=== PATIENT | male | born 1950 | race Caucasian/White ===

== ENCOUNTER 2020-08-22 08:42 | Inpatient (IN) | payer MEDICARE, BC ==
[2020-08-22 09:15] LABS: #Lymphocytes 0.5 thou/uL (1.20-3.40); #Monocytes 0.4 thou/uL (0.11-0.59); #Neutrophils 6.6 thou/uL (1.40-6.50); %Basophils 0.3 % (0.0-1.0); %Eosinophils 0.1 % (0.0-10.0); %Lymphocytes 6.8 % (21.0-51.0); %Monocytes 5.2 % (0.0-10.0); %Neutrophils 87.6 % (42.0-75.0); Hemoglobin 14.3 g/dL (14.0-18.0); Mean Corpuscular HGB CONC 32.6 g/dL (32.0-36.0); Mean Corpuscular Hemoglobin 30.8 pg (27.0-31.0); Mean Corpuscular Volume 94.4 fL (78.0-98.0); Mean Platelet Volume 8.1 fL (7.4-10.4); Platelet Count 188 thou/uL (130-400); RBC Distribution Width 11.8 % (11.5-14.5); Red Blood Cell (RBC) Count 4.63 mill/uL (4.70-6.10); White Blood Cell (WBC) Count 7.6 thou/uL (4.8-10.8)
[2020-08-22] MEDS ORDERED: Dexamethasone 10 MG/ML VIAL ONE (09:16)
--- NOTE | 2020-08-22 09:26 | RAD ---
EXAM: Portable chest PROVIDED CLINICAL HISTORY: Shortness of breath, Covid positive COMPARISON: None FINDINGS: Cardiac and mediastinal silhouette is within normal limits. No focal consolidation, pleural fluid or pneumothorax evident. IMPRESSION: No focal consolidation evident.
[2020-08-22 09:39] LABS: ALT (SGPT) 14 U/L (8-55); AST (SGOT) 39 U/L (5-34); Albumin 3.8 g/dL (3.4-4.8); Alkaline Phosphatase 57 U/L (40-110); Anion Gap 14 mmol/L (10-20); BUN (Urea Nitrogen) 22 mg/dL (8.4-25.7); Bilirubin, Total 0.6 mg/dL (0.2-1.2); Calc. Creatinine Clearance 0 mL/min (70-130); Calcium 8.2 mg/dL (7.8-10.44); Carbon Dioxide 27 mmol/L (23-31); Chloride 94 mmol/L (98-107); Globulin 2.8 g/dL (2.4-3.5); Glucose 155 mg/dL (80-115); Potassium 4.4 mmol/L (3.5-5.1); Protein, Total 6.6 g/dL (5.8-8.1); Sodium 131 mmol/L (136-145)
--- NOTE | 2020-08-22 11:23 | PDOC.HHP ---
Hospitalist HPI - History of Present Illness SOB History of Present Illness: Mr. Greenberg is a 69-year-old male with a past medical history of type 2 diabetes mellitus diet controlled, hypothyroidism, BPH who presents to the emergency room for shortness of breath. Patient reports that he tested positive for Covid 4 days ago and that his symptoms began 7 days ago with fever chills myalgias and a mild cough. Patient reports that over the past 2 days he has become increasingly short of breath now even at rest. He denies chest pain, palpitations. Denies abdominal pain nausea vomiting diarrhea. No history of respiratory problems. EMS reports that patient was in the low 80s on room air initially. Emergency room initial vital signs 107/83, 87, 25, 99.7, 98% on 2 L nasal cannula. EKG with normal sinus rhythm no ischemic changes. Initial troponin 0 0.010. Chest x-ray showed diffuse patchy infiltrates consistent with COVID-19 pneumonia. BUN/CR 22/1.03. Sodium 131, potassium 4.4, glucose 155. Lactic acid 1.1. Patient received Decadron in the emergency room. Hospitalist ROS - Review of Systems Constitutional: reports: fever, weakness, malaise. denies: chills, sweats Eyes: denies: pain, vision change, conjunctivae inflammation, eyelid inflammation, redness, other ENT: denies: ear pain, ear discharge, nose pain, nose discharge, nose congestion, mouth pain, mouth swelling, throat pain, throat swelling, other Respiratory: reports: cough, dry, shortness of breath, SOB with excertion. denies: hemoptysis, pleuritic pain, sputum, wheezing, other Cardiovascular: denies: chest pain, palpitations, orthopnea, paroxysmal noc. dyspnea, edema, light headedness, other Gastrointestinal: denies: nausea, vomiting, abdominal pain, diarrhea, constipation, melena, hematochezia, other Genitourinary: denies: dysuria, frequency, incontinence, hematuria, retention, other Skin: denies: rash, lesions, yojana, bruising, other Neurological: denies: weakness, numbness, incoordination, change in speech, confusion, seizures, other - Medication Medications: Patient takes no home medications Has allergy to sulfa drugs Hospitalist History - Past Medical History Other Medical History: Past medical history includes Type 2 diabetes mellitus diet controlled Hypothyroidismpatient reports he is on no medications however BPH - Past Surgical History Other Surgical History: No past surgical history - Family History Other Family History: No pertinent family history - Social History Smoking Status: Never smoker Alcohol: reports: None Drugs: reports: none Living Situation: With Family Activity level: independent ambulation - Exam General Appearance: NAD, awake alert Eye: PERRL, anicteric sclera ENT: normocephalic atraumatic, no oropharyngeal lesions, moist mucosa Neck: supple, symmetric, no JVD, no thyromegaly, no lymphadenopathy, no carotid bruit Heart: RRR, no murmur, no gallops, no rubs, normal peripheral pulses Respiratory - other findings: Rales throughout Gastrointestinal: soft, non-tender, non-distended, normal bowel sounds, no palpable masses, no hepatomegaly, no splenomegaly, no bruit Extremities: no cyanosis, no clubbing, no edema Skin: normal turgor, no lesions, no rashes Neurological: cranial nerve grossly intact, normal sensation to touch, no weakness, no focal deficits, no new deficit Musculoskeletal: normal tone, normal strength, no muscle wasting Psychiatric: normal affect, normal behavior, A&O x 3 Hospitalist Results - Labs Result Diagrams: 08/22/20 09:06 08/22/20 09:06 Lab results: WBC 7.6 thou/uL (4.8-10.8) 08/22/20 09:06 Hgb 14.3 g/dL (14.0-18.0) 08/22/20 09:06 Hct 43.8 % (42.0-52.0) 08/22/20 09:06 MCV 94.4 fL (78.0-98.0) 08/22/20 09:06 Plt Count 188 thou/uL (130-400) 08/22/20 09:06 Neutrophils % 87.6 % (42.0-75.0) H 08/22/20 09:06 Sodium 131 mmol/L (136-145) L 08/22/20 09:06 Potassium 4.4 mmol/L (3.5-5.1) 08/22/20 09:06 Chloride 94 mmol/L (98-107) L 08/22/20 09:06 Carbon Dioxide 27 mmol/L (23-31) 08/22/20 09:06 BUN 22 mg/dL (8.4-25.7) 08/22/20 09:06 Creatinine 1.03 mg/dL (0.7-1.3) 08/22/20 09:06 Glucose 155 mg/dL (80-115) H 08/22/20 09:06 Lactic Acid 1.1 mmol/L (0.5-2.2) 08/22/20 09:06 Calcium 8.2 mg/dL (7.8-10.44) 08/22/20 09:06 Total Bilirubin 0.6 mg/dL (0.2-1.2) 08/22/20 09:06 AST 39 U/L (5-34) H 08/22/20 09:06 ALT 14 U/L (8-55) 08/22/20 09:06 Alkaline Phosphatase 57 U/L (40-110) 08/22/20 09:06 Troponin I Less than 0.010 ng/mL (< 0.028) 08/22/20 09:06 Serum Total Protein 6.6 g/dL (5.8-8.1) 08/22/20 09:06 Albumin 3.8 g/dL (3.4-4.8) 08/22/20 09:06 Hospitalist H&P A/P - Plan Plan: COVID-19 pneumonia 69-year-old male with past medical history of type 2 diabetes mellitus, hypothyroidism, BPH presents Covid positive with worsening shortness of breath now requiring 2 L nasal cannula to maintain O2 saturation. Chest x-ray showed patchy bilateral infiltrates consistent with COVID-19 pneumonia. WBC 7.6. Troponin less than 0.010, EKG with no ischemic changes. Patient has no history of respiratory problems. Will obtain baseline inflammatory markers, continue Decadron and see if patient is candidate for remdesivir. Plan -Decadron, will see patient is candidate for remdesivir -Supplemental oxygen -Tylenol, Robitussin Albuterol MDI as needed -Vitamin C, D, zinc -We will obtain baseline inflammatory markers Acute hypoxic respiratory failure Patient with acute hypoxic respiratory failure secondary to moderate to severe COVID-19 pneumonia. Patient with new oxygen requirement now on 2 L of oxygen nasal cannula to maintain O2 sat. We will continue supplemental oxygen and closely monitor respiratory status. Treatment as above. Plan -Supplemental oxygen -Treatment as above -Closely monitor respiratory status Hyponatremia Mild hyponatremia with sodium level 131 on admission. Suspect mild component of SIADH versus hypovolemic hyponatremia secondary to decreased p.o. intake. Will obtain serum, urine osmolality and urine electrolytes. Plan Serum, urine osmolality Urine electrolytes Trend sodium level Type 2 diabetes mellitus History of type 2 diabetes which patient reports is diet controlled. Will place on ACHS glucose checks to monitor. Hypothyroidism History of hypothyroidism, however patient reports he is not on medication for this will check TSH level. DVT prophylaxisLovenox Full codeMDM is patient's Case discussed with attending physician, Dr. Byers
[2020-08-22] MEDS ORDERED: Acetaminophen 650 MG Suppository PR PRN (11:36)
[2020-08-22] MEDS ORDERED: Loperamide HCl 2 MG CAP PO PRN ×2 (11:36)
[2020-08-22] MEDS ORDERED: Dextrose 50% Abboject 50 ML SYRINGE SLOW IVP PRN (11:40)
[2020-08-22] MEDS ORDERED: Dextrose 5% in Water 1,000 ML IV PRN (11:40)
[2020-08-22 13:00] LABS: Ferritin 732.11 ng/mL (22-322); Thyroid Stimulating Hormone 1.4741 uIU/mL (0.35-4.94)
[2020-08-22] MEDS ORDERED: REMDESIVIR (EUA) 200 MG in Sodium Chloride 0.9% 250 ML 210 ML IV SCH (13:00)
[2020-08-22] MEDS: Albuterol 200 PUFF (6.7GM INHALER) INH SCH ×2 (17:42→20:19)
[2020-08-22 18:00] VITALS: BMI 25.8
[2020-08-22] MEDS: Guaifenesin DM 100-10/5 ML UDCUP PO PRN (18:52)
[2020-08-22 20:17] LABS: Potassium, Urine 33.9 mmol/L
[2020-08-23] MEDS: Albuterol 200 PUFF (6.7GM INHALER) INH SCH ×4 (05:35→18:16)
[2020-08-23] MEDS: Guaifenesin DM 100-10/5 ML UDCUP PO PRN (05:45)
[2020-08-23 06:27] LABS: #Lymphocytes 0.8 thou/uL (1.20-3.40); #Monocytes 0.4 thou/uL (0.11-0.59); #Neutrophils 10.2 thou/uL (1.40-6.50); %Basophils 0.1 % (0.0-1.0); %Lymphocytes 7.1 % (21.0-51.0); %Monocytes 3.6 % (0.0-10.0); %Neutrophils 89.1 % (42.0-75.0); Hemoglobin 14.1 g/dL (14.0-18.0); Mean Corpuscular HGB CONC 33.8 g/dL (32.0-36.0); Mean Corpuscular Hemoglobin 31.5 pg (27.0-31.0); Mean Corpuscular Volume 93.4 fL (78.0-98.0); Mean Platelet Volume 8.3 fL (7.4-10.4); Platelet Count 226 thou/uL (130-400); RBC Distribution Width 11.8 % (11.5-14.5); Red Blood Cell (RBC) Count 4.48 mill/uL (4.70-6.10); White Blood Cell (WBC) Count 11.5 thou/uL (4.8-10.8)
[2020-08-23 06:40] LABS: Anion Gap 14 mmol/L (10-20); BUN (Urea Nitrogen) 26 mg/dL (8.4-25.7); Calc. Creatinine Clearance 81 mL/min (70-130); Calcium 8.7 mg/dL (7.8-10.44); Carbon Dioxide 26 mmol/L (23-31); Chloride 97 mmol/L (98-107); Glucose 152 mg/dL (80-115); Potassium 4.3 mmol/L (3.5-5.1); Sodium 133 mmol/L (136-145)
[2020-08-23] MEDS: Dexamethasone 4 MG TAB PO SCH (08:00)
[2020-08-23] MEDS: Zinc Sulfate 220 MG CAP PO SCH (08:01)
[2020-08-23] MEDS: Cholecalciferol (Vitamin D3) 400 UNITS TAB PO SCH (08:01)
[2020-08-23] MEDS: Ascorbic Acid 500 mg Chewable Tablet PO SCH (08:01)
[2020-08-23] MEDS: Enoxaparin Sodium 40 MG/0.4 ML SYRINGE SC SCH (08:01)
--- NOTE | 2020-08-23 09:10 | RAD ---
Exam: Chest one view HISTORY:Shortness of breath Comparison: 08/22/2020 FINDINGS: Cardiac silhouette: Normal Aorta: Unremarkable Pulmonary vessels: Normal Costophrenic angles: Clear LUNGS: Interstitial opacities throughout the lung parenchyma, greatest in the lung bases. Pneumothorax: None Osseous abnormalities: None IMPRESSION: Scattered interstitial opacities, greatest in the lung bases. Correlate for edema versus infiltrate.
--- NOTE | 2020-08-23 10:06 | PDOC.HOSPP ---
- Subjective Encounter Date: 08/23/20 Encounter Time: 10:05 Subjective: Overnight, requiring increasing amount of O2. Now on 6L NC. In no apparent respiratory distress. Patient denies chest pain, N/V/D. Does report he feels a bit dehydrated and that he has not been drinking enough water. Chart and medications reviewed. - Objective Vital Signs & Weight: Vital Signs (12 hours) Temp Pulse Resp BP Pulse Ox 08/23/20 08:49 97.9 F 82 20 119/74 94 L 08/23/20 08:00 72 119/74 08/23/20 06:15 97.6 F 82 22 H 113/64 90 L 08/23/20 00:00 98.1 F 70 20 107/62 92 L Weight Weight 160 lb 3.2 oz Result Diagrams: 08/23/20 05:47 08/23/20 05:47 Additional Labs: Accuchecks 08/23/20 08/22/20 05:25 17:30 POC Glucose 156 H 235 H Hospitalist ROS - Review of Systems Constitutional: reports: fever, weakness Eyes: denies: pain, vision change, conjunctivae inflammation, eyelid inflammation, redness, other ENT: reports: throat pain. denies: ear pain, ear discharge, nose pain, nose discharge, nose congestion, mouth pain, mouth swelling, throat swelling, other Respiratory: reports: cough, shortness of breath, SOB with excertion. denies: dry, hemoptysis, pleuritic pain, sputum, wheezing, other Cardiovascular: denies: chest pain, palpitations, orthopnea, paroxysmal noc. dyspnea, edema, light headedness, other Gastrointestinal: denies: nausea, vomiting, abdominal pain, diarrhea, constipation, melena, hematochezia, other Genitourinary: denies: dysuria, frequency, incontinence, hematuria, retention, other Musculoskeletal: denies: neck pain, shoulder pain, arm pain, back pain, hand pain, leg pain, foot pain, other Skin: denies: rash, lesions, yojana, bruising, other Neurological: denies: weakness, numbness, incoordination, change in speech, confusion, seizures, other - Medication Medications: Active Medications Generic Name Dose Route Start Last Admin Trade Name Freq PRN Reason Stop Dose Admin Albuterol Sulfate 2 puff 08/22/20 15:00 08/23/20 05:35 Albuterol 200 Puff (6.7gm Inhaler) INH 2 puff [id number] SHREYAS Administration Ascorbic Acid 1,000 mg 08/23/20 09:00 08/23/20 08:01 Ascorbic Acid 500 Mg Chewable Tablet PO 1,000 mg DAILY SHREYAS Administration Cholecalciferol 400 units 08/23/20 09:00 08/23/20 08:01 Cholecalciferol (Vitamin D3) 400 Units Tab PO 400 units DAILY SHREYAS Administration Dexamethasone 6 mg 08/23/20 08:00 08/23/20 08:00 Dexamethasone 4 Mg Tab PO 6 mg QAM-WM SHREYAS Administration Enoxaparin Sodium 40 mg 08/23/20 09:00 08/23/20 08:01 Enoxaparin Sodium 40 Mg/0.4 Ml Syringe SC 40 mg 0900 SHREYAS Administration Guaifenesin/Dextromethorphan 15 ml 08/22/20 11:36 08/23/20 05:45 Guaifenesin Dm 100-10/5 Ml Udcup PO 15 ml Q4H PRN Administration Cough Zinc Sulfate 220 mg 08/23/20 09:00 08/23/20 08:01 Zinc Sulfate 220 Mg Cap PO 220 mg DAILY SHREYAS Administration - Exam General Appearance: NAD, awake alert General - other findings: Comfortable on 6L NC, no respiratory distress Eye: PERRL, anicteric sclera ENT: normocephalic atraumatic, no oropharyngeal lesions, dry oral mucosa Neck: supple, symmetric, no JVD, no thyromegaly, no lymphadenopathy, no carotid bruit Heart: RRR, no murmur, no gallops, no rubs, normal peripheral pulses Respiratory: no wheezes, normal chest expansion, no tachypnea, normal percussion Respiratory - other findings: Rales throughout Gastrointestinal: soft, non-tender, non-distended, normal bowel sounds, no palpable masses, no hepatomegaly, no splenomegaly, no bruit Extremities: no cyanosis, no clubbing, no edema Skin: normal turgor, no lesions, no rashes Neurological: cranial nerve grossly intact, normal sensation to touch, no weakness, no focal deficits, no new deficit Musculoskeletal: normal tone, normal strength, no muscle wasting Psychiatric: normal affect, normal behavior, A&O x 3 Hosp A/P - Plan COVID-19 pneumonia 69-year-old male with past medical history of type 2 diabetes mellitus, hypothyroidism, BPH presents Covid positive with worsening shortness of breath now requiring 2 L nasal cannula to maintain O2 saturation. Chest x-ray showed patchy bilateral infiltrates consistent with COVID-19 pneumonia. WBC 7.6. Troponin less than 0.010, EKG with no ischemic changes. Patient has no history of respiratory problems. Increasing O2 requirement on 08/23, on 6L NC. Repeat CXR shows interval worsening and question of faint LLL infiltrate. Will start on ceftriaxone and azithromycin for CAP coverage. Continue decadron, remdesivir. Plan -Decadron, remdesivir -Ceftriaxone, Azithromycin -Supplemental oxygen -Tylenol, Robitussin Albuterol MDI as needed -Vitamin C, D, zinc -Ferritin 732, CRP 13, D-Dimer 1.18 Acute hypoxic respiratory failure Patient with acute hypoxic respiratory failure secondary to moderate to severe COVID-19 pneumonia. Patient with new oxygen requirement initially on 2 L of oxygen nasal cannula to maintain O2 sat. Increased to 6L NC on 08/23. We will continue supplemental oxygen and closely monitor respiratory status. Treatment as above. Plan -Supplemental oxygen -Treatment as above -Closely monitor respiratory status Hyponatremia Mild hyponatremia with sodium level 131 on admission. Suspect mild component of SIADH versus hypovolemic hyponatremia secondary to decreased p.o. intake. Urine/serm osms show hypovolemic hyponatremia. Will start gentle IVF and continue to monitor. Plan Likely hypovolemic hyponatremia -Gentle IVF -Trend sodium Type 2 diabetes mellitus History of type 2 diabetes which patient reports is diet controlled. Glucose levels high 2/2 steroids. Will start on ISS for coverage and ACHS glucose checks. Carb consistent diet. Hypothyroidism History of hypothyroidism, however patient reports he is not on medication for this will check. TSH wnl. DVT prophylaxisLovenox Full codeMDM is patient's Case discussed with attending physician, Dr. Byers
[2020-08-23] MEDS: Sodium Chloride 0.9% 1,000 ML IV SCH (10:25)
[2020-08-23] MEDS: cefTRIAXone\\ROCEPHIN 1 GM in Sodium Chloride 0.9% 100 ML IVPB SCH (10:26)
[2020-08-23] MEDS: Azithromycin 500 MG in Sodium Chloride 0.9% 250 ML 250 ML IVPB SCH (10:50)
[2020-08-23 11:20] LABS: Sodium 131 mmol/L (136-145)
[2020-08-23] MEDS: Benzonatate 100 MG CAP PO PRN (12:15)
[2020-08-23] MEDS: HumaLOG 300 UNITS/3 ML VIAL SC PRN ×2 (12:16→16:39)
[2020-08-23] MEDS: REMDESIVIR (EUA) 100 MG in Sodium Chloride 0.9% 250 ML 230 ML IV SCH (14:42)
[2020-08-23 16:31] LABS: Sodium 134 mmol/L (136-145)
[2020-08-24 00:10] LABS: Sodium 135 mmol/L (136-145)
[2020-08-24] MEDS: Sodium Chloride 0.9% 1,000 ML IV SCH ×2 (00:38→11:37)
[2020-08-24] MEDS: Albuterol 200 PUFF (6.7GM INHALER) INH SCH ×4 (06:12→19:41)
[2020-08-24 06:41] LABS: #Lymphocytes 0.6 thou/uL (1.20-3.40); #Monocytes 0.5 thou/uL (0.11-0.59); #Neutrophils 10.1 thou/uL (1.40-6.50); %Lymphocytes 5.2 % (21.0-51.0); %Monocytes 4.1 % (0.0-10.0); %Neutrophils 90.6 % (42.0-75.0); Hemoglobin 14.1 g/dL (14.0-18.0); Mean Corpuscular HGB CONC 33.7 g/dL (32.0-36.0); Mean Corpuscular Volume 94.9 fL (78.0-98.0); Mean Platelet Volume 8.2 fL (7.4-10.4); Platelet Count 234 thou/uL (130-400); RBC Distribution Width 11.7 % (11.5-14.5); White Blood Cell (WBC) Count 11.2 thou/uL (4.8-10.8)
[2020-08-24 07:04] LABS: Anion Gap 12 mmol/L (10-20); BUN (Urea Nitrogen) 24 mg/dL (8.4-25.7); Calc. Creatinine Clearance 83 mL/min (70-130); Calcium 8.3 mg/dL (7.8-10.44); Carbon Dioxide 28 mmol/L (23-31); Chloride 100 mmol/L (98-107); Glucose 137 mg/dL (80-115); Potassium 4.2 mmol/L (3.5-5.1); Sodium 136 mmol/L (136-145)
[2020-08-24] MEDS: Enoxaparin Sodium 40 MG/0.4 ML SYRINGE SC SCH (08:06)
[2020-08-24] MEDS: Cholecalciferol (Vitamin D3) 400 UNITS TAB PO SCH (08:06)
[2020-08-24] MEDS: Ascorbic Acid 500 mg Chewable Tablet PO SCH (08:06)
[2020-08-24] MEDS: Zinc Sulfate 220 MG CAP PO SCH (08:06)
[2020-08-24] MEDS: Dexamethasone 4 MG TAB PO SCH (08:06)
[2020-08-24] MEDS: Azithromycin 500 MG in Sodium Chloride 0.9% 250 ML 250 ML IVPB SCH (10:18)
[2020-08-24] MEDS: cefTRIAXone\\ROCEPHIN 1 GM in Sodium Chloride 0.9% 100 ML IVPB SCH (10:19)
--- NOTE | 2020-08-24 10:28 | PDOC.HOSPP ---
- Subjective Encounter Date: 08/24/20 Encounter Time: 10:24 Subjective: No overnight events. Patient continues to be on 5L NC. In no apparent respiratory distress. Denies N/V/D. Denies chest pain. Chart and medications reviewed. - Objective Vital Signs & Weight: Vital Signs (12 hours) Temp Pulse Resp BP Pulse Ox 08/24/20 08:00 97.4 F L 80 22 H 132/78 93 L 08/24/20 03:52 97.7 F 67 20 125/64 92 L 08/24/20 01:33 97.4 F L 66 22 H 112/72 97 Weight Weight 160 lb 3.2 oz I&O: 08/23/20 08/24/20 08/25/20 06:59 06:59 06:59 Intake Total 240 Output Total 700 Balance -460 Result Diagrams: 08/24/20 06:03 08/24/20 10:08 Additional Labs: Accuchecks 08/24/20 08/23/20 08/23/20 04:40 20:31 16:38 POC Glucose 129 H 174 H 193 H 08/23/20 12:13 POC Glucose 156 H Hospitalist ROS - Review of Systems Constitutional: reports: fever, weakness, malaise Eyes: denies: pain, vision change, conjunctivae inflammation, eyelid inflammation, redness, other ENT: denies: ear pain, ear discharge, nose pain, nose discharge, nose [place] estion, mouth pain, mouth swelling, throat pain, throat swelling, other Respiratory: reports: cough, shortness of breath, SOB with excertion. denies: dry, hemoptysis, pleuritic pain, sputum, wheezing, other Cardiovascular: denies: chest pain, palpitations, orthopnea, paroxysmal noc. dyspnea, edema, light headedness, other Gastrointestinal: denies: nausea, vomiting, abdominal pain, diarrhea, constipation, melena, hematochezia, other Genitourinary: denies: dysuria, frequency, incontinence, hematuria, retention, other Musculoskeletal: denies: neck pain, shoulder pain, arm pain, back pain, hand pain, leg pain, foot pain, other Skin: denies: rash, lesions, yojana, bruising, other Neurological: denies: weakness, numbness, incoordination, change in speech, confusion, seizures, other - Medication Medications: Active Medications Generic Name Dose Route Start Last Admin Trade Name Freq PRN Reason Stop Dose Admin Albuterol Sulfate 2 puff 08/22/20 15:00 08/24/20 10:19 Albuterol 200 Puff (6.7gm Inhaler) INH 2 puff [id number] SHREYAS Administration Ascorbic Acid 1,000 mg 08/23/20 09:00 08/24/20 08:06 Ascorbic Acid 500 Mg Chewable Tablet PO 1,000 mg DAILY SHREYAS Administration Benzonatate 100 mg 08/22/20 11:42 08/23/20 12:15 Benzonatate 100 Mg Cap PO 100 mg TIDPRN PRN Administration Cough Cholecalciferol 400 units 08/23/20 09:00 08/24/20 08:06 Cholecalciferol (Vitamin D3) 400 Units Tab PO 400 units DAILY SHREYAS Administration Dexamethasone 6 mg 08/23/20 08:00 08/24/20 08:06 Dexamethasone 4 Mg Tab PO 6 mg QAM-WM SHREYAS Administration Enoxaparin Sodium 40 mg 08/23/20 09:00 08/24/20 08:06 Enoxaparin Sodium 40 Mg/0.4 Ml Syringe SC 40 mg 0900 SHREYAS Administration Guaifenesin/Dextromethorphan 15 ml 08/22/20 11:36 08/23/20 05:45 Guaifenesin Dm 100-10/5 Ml Udcup PO 15 ml Q4H PRN Administration Cough Remdesivir 100 mg/ Sodium 250 mls @ 250 mls/hr 08/23/20 13:00 08/23/20 14:42 Chloride IV 08/26/20 13:59 250 mls 1300 SHREYAS Administration Ceftriaxone Sodium 1 gm/ 100 mls @ 200 mls/hr 08/23/20 11:00 08/24/20 10:19 Sodium Chloride IVPB 100 mls Q24HR SHREYAS Administration Azithromycin 500 mg/ Sodium 250 mls @ 250 mls/hr 08/23/20 11:00 08/24/20 10:18 Chloride IVPB 250 mls Q24HR SHREYAS Administration Sodium Chloride 1,000 mls @ 75 mls/hr 08/23/20 10:15 08/24/20 00:38 Normal Saline 0.9% IV 1,000 mls .[id number] SHREYAS Administration Insulin Human Lispro 0 units 08/23/20 10:04 08/23/20 16:39 Humalog 300 Units/3 Ml Vial SC 2 unit .MILD SLIDING SCALE PRN Administration Mild Correctional Scale Zinc Sulfate 220 mg 08/23/20 09:00 08/24/20 08:06 Zinc Sulfate 220 Mg Cap PO 220 mg DAILY SHREYAS Administration - Exam General Appearance: NAD, awake alert General - other findings: Comfotable on 5L NC Eye: PERRL, anicteric sclera ENT: normocephalic atraumatic, no oropharyngeal lesions, moist mucosa Neck: supple, symmetric, no JVD, no thyromegaly, no lymphadenopathy, no carotid bruit Heart: RRR, no murmur, no gallops, no rubs, normal peripheral pulses Respiratory: normal chest expansion, no tachypnea Respiratory - other findings: Rales bilaterally Gastrointestinal: soft, non-tender, non-distended, normal bowel sounds, no palpable masses, no hepatomegaly, no splenomegaly, no bruit Extremities: no cyanosis, no clubbing, no edema Skin: normal turgor, no lesions, no rashes Neurological: normal sensation to touch, no weakness, no focal deficits Musculoskeletal: normal tone, normal strength, no muscle wasting Psychiatric: normal affect, normal behavior, A&O x 3 Hosp A/P - Plan COVID-19 pneumonia 69-year-old male with past medical history of type 2 diabetes mellitus, hypothyroidism, BPH presents Covid positive with worsening shortness of breath now requiring 2 L nasal cannula to maintain O2 saturation. Chest x-ray showed patchy bilateral infiltrates consistent with COVID-19 pneumonia. WBC 7.6. Troponin less than 0.010, EKG with no ischemic changes. Patient has no history of respiratory problems. Increasing O2 requirement on 08/23, on 5L NC. Repeat CXR shows interval worsening and question of faint LLL infiltrate. Will continue ceftriaxone and azithromycin for CAP coverage. Continue decadron, remdesivir. Trend LFTs. Plan -Decadron, remdesivir -Ceftriaxone, Azithromycin -Supplemental oxygen -Tylenol, Robitussin Albuterol MDI as needed -Vitamin C, D, zinc -Ferritin 732, CRP 13, D-Dimer 1.18 Acute hypoxic respiratory failure Patient with acute hypoxic respiratory failure secondary to moderate to severe COVID-19 pneumonia. Patient with new oxygen requirement initially on 2 L of oxygen nasal cannula to maintain O2 sat. Increased to 6L NC on 08/23. 5L NC on 08/24. We will continue supplemental oxygen and closely monitor respiratory status. Treatment as above. Plan -Supplemental oxygen -Treatment as above -Closely monitor respiratory status Hyponatremia Mild hyponatremia with sodium level 131 on admission. Suspect mild component of SIADH versus hypovolemic hyponatremia secondary to decreased p.o. intake. Urine/serm osms show hypovolemic hyponatremia. Gentle IVF started and Na now improved to 135. Will continue to monitor. Plan Likely hypovolemic hyponatremia -Resolved s/p gentle IVF -Trend sodium Type 2 diabetes mellitus History of type 2 diabetes which patient reports is diet controlled. Glucose levels high 2/2 steroids. Continue ISS for coverage and ACHS glucose checks. Carb consistent diet. Hypothyroidism History of hypothyroidism, however patient reports he is not on medication for this will check. TSH wnl. DVT prophylaxisLovenox Full codeMDM is patient's Case discussed with attending physician, Dr. Byers
[2020-08-24 10:31] LABS: Sodium 134 mmol/L (136-145)
[2020-08-24 11:44] LABS: ALT (SGPT) 19 U/L (8-55); AST (SGOT) 42 U/L (5-34); Albumin 3.6 g/dL (3.4-4.8); Alkaline Phosphatase 64 U/L (40-110); Bilirubin, Direct 0.2 mg/dL (0.1-0.3); Bilirubin, Total 0.4 mg/dL (0.2-1.2); Protein, Total 6.6 g/dL (5.8-8.1)
[2020-08-24] MEDS: REMDESIVIR (EUA) 100 MG in Sodium Chloride 0.9% 250 ML 230 ML IV SCH (14:03)
[2020-08-24] MEDS: Guaifenesin DM 100-10/5 ML UDCUP PO PRN ×2 (14:03→21:30)
[2020-08-24] MEDS: HumaLOG 300 UNITS/3 ML VIAL SC PRN ×2 (16:41→19:15)
[2020-08-24 16:45] LABS: Sodium 136 mmol/L (136-145)
[2020-08-24] MEDS: Benzonatate 100 MG CAP PO PRN (19:15)
--- NOTE | 2020-08-24 20:36 | PDOC.EVN ---
Event Note - Event Note Event Note: Patient was reviewed. He was seen and examined. He appears to be receiving excellent care from Beverley Nava. His lungs sound pretty good. Continuing to treat his underlying Covid pneumonia and wean his oxygen as tolerated. He is currently on 5 L. If we can get him down to 4 L may be able to get him home on a concentrator.
[2020-08-24] MEDS ORDERED: Cepastat Lozenges 1 LOZ PO PRN (21:43)
--- NOTE | 2020-08-25 02:46 | PDOC.EVN ---
Event Note - Event Note Event Note: Patient was found lying sideways in the bed without his O2, unknown how long he had been off his O2 but his nurse stated she had checked on him last about 40 minutes prior. When she got him back into bed, he was hypoxic, in the 80s, confused and SOB. Was a little diaphoretic and confused. O2 sats have improved some after being placed on his O2. RT in the room and will try high-flow 02 and draw an ABG. Dr. Hartley notified.
[2020-08-25 02:47] LABS: Actual Bicarbonate (HCO3a) 23.5 mEq/L (22-28); Base Excess (BEa) -0.4 mEq/L (-2.0 to +3.0); CO2 Tension 36.3 mmHg (35.0-45.0); Calcium, Ionized (arterial) 1.12 mmol/L (1.12-1.30); Carboxyhemoglobin (COHb) 0.5 gm% (0.0-3.0); Hemoglobin (Hb) 14.4 g/dL (14.0-18.0); O2 Tension (PaO2), arterial 61.6 mmHg (> 70.0); Potassium - ABG Lab 3.65 mmol/L (3.70-5.30); pH, Arterial 7.43 (7.35-7.45)
[2020-08-25 02:49] LABS: Puncture Site RRA
[2020-08-25 02:52] LABS: ALV-art Gradient 392.125 mmHg (0-20)
[2020-08-25] MEDS: Sodium Chloride 0.9% 1,000 ML IV SCH ×2 (03:26→09:05)
[2020-08-25] MEDS ORDERED: Propofol 1,000 MG/100 ML VIAL IV ONE (05:55)
[2020-08-25 06:10] LABS: Anion Gap 17 mmol/L (10-20); BUN (Urea Nitrogen) 20 mg/dL (8.4-25.7); Calc. Creatinine Clearance 89 mL/min (70-130); Calcium 8.1 mg/dL (7.8-10.44); Carbon Dioxide 21 mmol/L (23-31); Chloride 104 mmol/L (98-107); Glucose 151 mg/dL (80-115); Potassium 4.3 mmol/L (3.5-5.1); Sodium 138 mmol/L (136-145)
--- NOTE | 2020-08-25 06:27 | PDOC.BPN ---
- Brief Progress Note Encounter Date: 08/25/20 Patient being managed for Covid on 2. Early in the night he was having difficulty breathing. He was transitioned to high flow however still struggling. Sudden drop in his O2 was noted and a pilar crum was called followed quickly by [facility] His nurse noted he may have aspirated and suctioned out some food material. [facility] team was present to intubate as his oxygen saturation remained low in the 80s and 70s. He will be transferred today CCU.
[2020-08-25 06:51] LABS: Band 14 % (5-11); Hemoglobin 15.1 g/dL (14.0-18.0); Lymphocytes 4 % (21-51); MDiff Complete? YES; Mean Corpuscular HGB CONC 32.6 g/dL (32.0-36.0); Mean Corpuscular Hemoglobin 30.8 pg (27.0-31.0); Mean Corpuscular Volume 94.5 fL (78.0-98.0); Mean Platelet Volume 7.8 fL (7.4-10.4); Metamyelocyte 1 % (0-0); Monocytes 1 % (0-10); Neutrophil 80 % (42-75); Platelet Count 281 thou/uL (130-400); Platelet Morphology Comment Appears Adequate; White Blood Cell (WBC) Count 17.3 thou/uL (4.8-10.8)
[2020-08-25] MEDS: Albuterol 200 PUFF (6.7GM INHALER) INH SCH ×4 (08:02→19:58)
[2020-08-25] MEDS: Zinc Sulfate 220 MG CAP PO SCH (08:37)
[2020-08-25] MEDS: Ascorbic Acid 500 mg Chewable Tablet PO SCH (08:37)
[2020-08-25] MEDS: Enoxaparin Sodium 40 MG/0.4 ML SYRINGE SC SCH (08:37)
[2020-08-25] MEDS: Cholecalciferol (Vitamin D3) 400 UNITS TAB PO SCH (08:38)
--- NOTE | 2020-08-25 08:45 | RAD ---
Portable frontal chest radiograph: 08/25/2020 COMPARISON: 08/23/2020 HISTORY: Intubated patient FINDINGS: Endotracheal tube and nasogastric tube noted, in proper position. Supine imaging is provide d, limiting assessment for pneumothorax and pleural fluid. There is nonspecific widening of the superior mediastinum. There is extensive interstitial and alveolar opacity within the perihilar regio ns and both lung bases, right greater than left, worsened when compared to the 08/23/2020 examination. IMPRESSION: Lines and tubes as detailed above. Worsening interstitial and alveolar opacity suspicious for worsening infectious pneumonitis or aspiration.
[2020-08-25] MEDS ORDERED: Lorazepam 2 MG/ML VIAL SLOW IVP PRN (09:30)
[2020-08-25] MEDS ORDERED: Propofol BOLUS 1,000 MG/100 ML VIAL IV PRN (09:30)
[2020-08-25] MEDS ORDERED: Morphine 2 MG/ML VIAL SLOW IVP PRN (09:30)
[2020-08-25] MEDS ORDERED: DISCONTINUE PREVIOUS NARCOTIC PAIN MEDICATIONS AND BENZODIAZEPINES FS SCH (09:30)
[2020-08-25] MEDS ORDERED: Fentanyl BOLUS 250 ML IVPB PRN (09:30)
[2020-08-25] MEDS: Dexamethasone 4 MG TAB PO SCH (10:14)
[2020-08-25] MEDS: cefTRIAXone\\ROCEPHIN 1 GM in Sodium Chloride 0.9% 100 ML IVPB SCH (11:01)
[2020-08-25] MEDS: Azithromycin 500 MG in Sodium Chloride 0.9% 250 ML 250 ML IVPB SCH (11:18)
[2020-08-25] MEDS: Propofol 1,000 MG/100 ML VIAL IV PRN ×2 (11:19→19:21)
[2020-08-25] MEDS ORDERED: PROPOFOL 200 MG/20 ML VIAL ONE (12:09)
[2020-08-25] MEDS ORDERED: Succinylcholine 200 MG/10 ml SYRINGE FS ONE (12:09)
[2020-08-25] MEDS: REMDESIVIR (EUA) 100 MG in Sodium Chloride 0.9% 250 ML 230 ML IV SCH (13:53)
[2020-08-25 14:08] LABS: SARS-CoV-2 NAA Rapid Test DETECTED (NotDetected)
--- NOTE | 2020-08-25 15:06 | PDOC.HOSPP ---
- Subjective Encounter Date: 08/25/20 Encounter Time: 12:00 Subjective: is on vent, sedated - Objective Vital Signs & Weight: Vital Signs (12 hours) Temp Pulse Resp BP Pulse Ox 08/25/20 12:00 98.6 F 08/25/20 11:53 65 95/73 08/25/20 10:00 20 08/25/20 09:00 98.6 F 08/25/20 08:15 20 08/25/20 08:00 99 08/25/20 07:55 60 129/78 08/25/20 05:12 90 L 08/25/20 03:26 96 Weight Admit Weight 160 lb Weight 160 lb 3.2 oz Most Recent Monitor Data Heart Rate from ECG 61 NIBP 128/75 NIBP BP-Mean 92 Respiration from ECG 10 SpO2 99 I&O: 08/24/20 08/25/20 08/26/20 06:59 06:59 06:59 Intake Total 240 410 Output Total 700 250 Balance -460 160 Result Diagrams: 08/25/20 05:44 08/25/20 05:44 Additional Labs: Accuchecks 08/25/20 08/25/20 08/25/20 11:13 08:51 04:38 POC Glucose 181 H 126 H 154 H 08/25/20 08/24/20 08/24/20 02:02 19:18 16:40 POC Glucose 147 H 217 H 222 H Hospitalist ROS - Medication Medications: Active Medications Generic Name Dose Route Start Last Admin Trade Name Freq PRN Reason Stop Dose Admin Albuterol Sulfate 2 puff 08/22/20 15:00 08/25/20 11:09 Albuterol 200 Puff (6.7gm Inhaler) INH 2 puff [id number] SHREYAS Administration Ascorbic Acid 1,000 mg 08/23/20 09:00 08/25/20 08:37 Ascorbic Acid 500 Mg Chewable Tablet PO 1,000 mg DAILY SHREYAS Administration Benzonatate 100 mg 08/22/20 11:42 08/24/20 19:15 Benzonatate 100 Mg Cap PO 100 mg TIDPRN PRN Administration Cough Cholecalciferol 400 units 08/23/20 09:00 08/25/20 08:38 Cholecalciferol (Vitamin D3) 400 Units Tab PO 400 units DAILY SHREYAS Administration Dexamethasone 6 mg 08/23/20 08:00 08/25/20 10:14 Dexamethasone 4 Mg Tab PO 6 mg QAM-WM SHREYAS Administration Enoxaparin Sodium 40 mg 08/23/20 09:00 08/25/20 08:37 Enoxaparin Sodium 40 Mg/0.4 Ml Syringe SC 40 mg 0900 SHREYAS Administration Guaifenesin/Dextromethorphan 15 ml 08/22/20 11:36 08/24/20 21:30 Guaifenesin Dm 100-10/5 Ml Udcup PO 15 ml Q4H PRN Administration Cough Remdesivir 100 mg/ Sodium 250 mls @ 250 mls/hr 08/23/20 13:00 08/25/20 13:53 Chloride IV 08/26/20 13:59 250 mls 1300 SHREYAS Administration Ceftriaxone Sodium 1 gm/ 100 mls @ 200 mls/hr 08/23/20 11:00 08/25/20 11:01 Sodium Chloride IVPB 100 mls Q24HR SHREYAS Administration Azithromycin 500 mg/ Sodium 250 mls @ 250 mls/hr 08/23/20 11:00 08/25/20 11:18 Chloride IVPB 250 mls Q24HR SHREYAS Administration Sodium Chloride 1,000 mls @ 75 mls/hr 08/23/20 10:15 08/25/20 09:05 Normal Saline 0.9% IV 1,000 mls .[id number] SHREYAS Administration Insulin Human Lispro 0 units 08/23/20 10:04 08/24/20 16:41 Humalog 300 Units/3 Ml Vial SC 3 unit .MILD SLIDING SCALE PRN Administration Mild Correctional Scale Insulin Human Lispro 0 units 08/23/20 10:04 08/24/20 19:15 Humalog 300 Units/3 Ml Vial SC 2 unit .BEDTIME SLIDING SC PRN Administration Bedtime Correctional Scale Propofol 1,000 mg 08/25/20 09:30 08/25/20 11:19 Propofol 1,000 Mg/100 Ml Vial IV 09/24/20 09:30 1,000 mg INF PRN Administration TO ACHIEVE GOAL RASS Protocol Throat Lozenges 1 nolan 08/24/20 21:43 08/24/20 23:20 Cepastat Lozenges 1 Nolan PO 1 nolan Q2H PRN Administration Sore Throat Zinc Sulfate 220 mg 08/23/20 09:00 08/25/20 08:37 Zinc Sulfate 220 Mg Cap PO 220 mg DAILY SHREYAS Administration - Exam General Appearance: ill appearing Eye: PERRL, anicteric sclera ENT: no oropharyngeal lesions, moist mucosa Neck: supple, no JVD Heart: RRR, no murmur Respiratory: no wheezes, rales, rhonchi Gastrointestinal: soft, non-tender, non-distended, normal bowel sounds Extremities: no cyanosis, no edema Neurological: cranial nerve grossly intact, no focal deficits Hosp A/P (1) Pneumonia due to COVID-19 virus Code(s): U07.1 - COVID-19; J12.82 - PNEUMONIA DUE TO CORONAVIRUS DISEASE 2019 Status: Acute (2) Acute respiratory failure with hypoxia Code(s): J96.01 - ACUTE RESPIRATORY FAILURE WITH HYPOXIA Status: Acute (3) DM type 2 (diabetes mellitus, type 2) Status: Chronic Qualifiers: Diabetes mellitus gas golf cart repairer insulin use: without gas golf cart repairer use Diabetes mellitus complication status: with hyperglycemia Qualified Code(s): E11.65 - Type 2 diabetes mellitus with hyperglycemia (4) HTN (hypertension) Code(s): I10 - ESSENTIAL (PRIMARY) HYPERTENSION Status: Chronic Qualifiers: Hypertension type: essential hypertension Qualified Code(s): I10 - Essential (primary) hypertension (5) BPH (benign prostatic hyperplasia) Code(s): N40.0 - BENIGN PROSTATIC HYPERPLASIA WITHOUT LOWER URINRY TRACT SYMP Status: Chronic Qualifiers: Lower urinary tract symptom presence: symptoms present (6) Hypothyroidism Code(s): E03.9 - HYPOTHYROIDISM, UNSPECIFIED Status: Chronic Qualifiers: Hypothyroidism type: acquired Qualified Code(s): E03.9 - Hypothyroidism, unspecified - Plan is on albuterol inh, dexamethasone, remdesivir, ceftriaxone and zithromax got intubated overnight, has extensive infiltrates on cxr add flomax and proscar, has bond trauma (not sure if he pulled it with intact bulb), urology consult d/w friend and POA Ms.Kubena Mcclain, gave full updates.
[2020-08-25] MEDS: HumaLOG 300 UNITS/3 ML VIAL SC PRN (15:50)
--- NOTE | 2020-08-25 17:16 | CON ---
DATE OF CONSULTATION: 08/25/2020 HISTORY OF PRESENT ILLNESS: Demetrio Greenberg is a 69-year-old male. Apparently, at 8:00 this morning, a code was called. He was intubated and transferred to critical care unit. History is obtained from the notes. Apparently, he presented on August 22 after 7 days of COVID symptoms at home. He tested 5 days prior to admission and was positive for the virus. PAST MEDICAL HISTORY: 1. Diabetes. 2. Hypothyroidism. 3. History of BPH. SOCIAL HISTORY: He is a nonsmoker and nondrinker. REVIEW OF SYSTEMS: Not obtainable. PHYSICAL EXAMINATION: VITAL SIGNS: Blood pressure 120/69, heart rate 60, respiratory rate is 20. HEAD AND NECK: Unremarkable. LUNGS: He has equal breath sounds. HEART: Regular rhythm. ABDOMEN: Soft. EXTREMITIES: Without edema. DIAGNOSTIC STUDIES: Chest x-ray shows bilateral alveolar infiltrates, endotracheal tube is in proper position. IMPRESSION: COVID pneumonia. He is 1 week into this, so it would be debatable if convalescent plasma would be helpful at this point, given that he has progressed rapidly. I think it is reasonable to administer this. I doubt this is an atypical pneumonia, so his azithromycin can be stopped. Certainly could have superimposed bacterial process, so it would be reasonable to put him on Rocephin in my opinion. We will follow. This is a 70 min. consult with greater than 50% of the time spent on the unit with coordination of care. Job ID: [id number] MTDD
--- NOTE | 2020-08-25 18:33 | RAD ---
Chest one view HISTORY: Nasogastric tube placement. COMPARISON: 08/25/2020. Earlier exam on the same date. FINDINGS: Cardiac silhouette is magnified by projection. Pulmonary vasculature is predominantly obscu red by widespread, diffuse fluffy infiltrate throughout each lung, most pronounced at the left lateral lung base. No evidence of pneumothorax. Tip of the endotracheal catheter overlies the thoracic inlet. Nasogastric tube descends to the abdome n. Chronic calcific tendinosis right rotator cuff. IMPRESSION : Nasogastric tube descends to the stomach. Widespread, diffuse parenchymal infiltrate and other findings are stable.
[2020-08-25] MEDS: cefTRIAXone\\ROCEPHIN 2 GM in Sodium Chloride 0.9% 100 ML IVPB SCH (18:35)
[2020-08-25] MEDS: Tamsulosin HCl 0.4 MG CAP PO SCH (21:31)
--- NOTE | 2020-08-26 00:27 | CON ---
DATE OF CONSULTATION: 08/25/2020 REASON FOR CONSULTATION: Unable to place Ferreira catheter. HISTORY: Mr. Greenberg is a 69-year-old gentleman, who was admitted to the hospital on 08/22/2020 with progressive shortness of breath. He had been diagnosed with COVID several days prior and has had symptoms for over a week. He progressed to the point that he had dyspnea even at rest. He was admitted to the hospital on 08/24/2020, but his condition worsened, and he has been now transferred to the ICU requiring intubation for progressive dyspnea. Attempts were made in the ICU to place Ferreira catheter. Initial catheter was placed for 800 mL, but the balloon could not be inflated, so it was removed. Additional attempts were made to place the Ferreira catheter. They were unsuccessful, and for that reason, urologic consultation was obtained. History cannot be obtained adequately from the patient at this time. His prior urologic history does include TURP in July 2016. PAST MEDICAL HISTORY: Diabetes mellitus, hypothyroidism, BPH. PAST SURGICAL HISTORY: TURP in 2016. CHRONIC MEDICATIONS: At home, none. ALLERGIES: SULFA. FAMILY HISTORY: Noncontributory. SOCIAL HISTORY: Nonsmoker. Denies alcohol use. Lives with his family at home. PHYSICAL EXAMINATION: GENERAL: Currently, he is intubated. He appears comfortable. HEENT: Normocephalic, atraumatic. NECK: Supple. No masses. CHEST: Clear to auscultation. ABDOMEN: Soft, nontender. No palpable masses. Liver and spleen not palpable. No abdominal tenderness noted. : Penis is uncircumcised. Attempts were made to place a 14-[place]izen [place] coude catheter, but this was unsuccessful. A guidewire could then be passed into the region of the bladder. A 10-Citizen [place] and 12-Citizen [place] [employer] tip Ferreira could be passed over the guidewire, 14-Citizen [place] [employer] tip follower met such resistance as it is could not be passed. I was able to remove the wire and place a 14-Citizen [place] coude catheter. It drained clear yellow urine. IMPRESSION: Difficult Ferreira catheter due to prior TURP. I suspect the initial catheter placement could not be accomplished due to probable bladder neck contracture. Most likely, tip of the catheter remained in the bladder to drain urine, but the balloon portion of the catheter remained in prostate and for that reason could not be inflated. RECOMMENDATIONS: Leave Ferreira catheter in place until the patient is ambulatory. No further recommendations at this time. Job ID: [id number]
[2020-08-26] MEDS: Propofol 1,000 MG/100 ML VIAL IV PRN ×3 (01:04→18:38)
[2020-08-26] MEDS: Sodium Chloride 0.9% 1,000 ML IV SCH ×2 (01:05→14:17)
[2020-08-26] MEDS ORDERED: Fentanyl CADD 100 ML ONE (01:32)
[2020-08-26] MEDS: Fentanyl CADD 100 ML IV SCH (01:51)
[2020-08-26 03:58] LABS: #Lymphocytes 0.4 thou/uL (1.20-3.40); #Monocytes 0.2 thou/uL (0.11-0.59); #Neutrophils 8.1 thou/uL (1.40-6.50); %Basophils 0.2 % (0.0-1.0); %Eosinophils 0.1 % (0.0-10.0); %Lymphocytes 4.5 % (21.0-51.0); %Monocytes 2.4 % (0.0-10.0); %Neutrophils 92.7 % (42.0-75.0); Mean Corpuscular HGB CONC 33.4 g/dL (32.0-36.0); Mean Corpuscular Hemoglobin 31.5 pg (27.0-31.0); Mean Corpuscular Volume 94.3 fL (78.0-98.0); Mean Platelet Volume 8.2 fL (7.4-10.4); Platelet Count 184 thou/uL (130-400); White Blood Cell (WBC) Count 8.7 thou/uL (4.8-10.8)
[2020-08-26 04:16] LABS: Anion Gap 12 mmol/L (10-20); BUN (Urea Nitrogen) 20 mg/dL (8.4-25.7); Calc. Creatinine Clearance 97 mL/min (70-130); Calcium 7.6 mg/dL (7.8-10.44); Carbon Dioxide 22 mmol/L (23-31); Chloride 105 mmol/L (98-107); Glucose 145 mg/dL (80-115); Potassium 4.2 mmol/L (3.5-5.1); Sodium 135 mmol/L (136-145)
[2020-08-26] MEDS: Albuterol 200 PUFF (6.7GM INHALER) INH SCH ×4 (07:13→19:43)
[2020-08-26] MEDS: Ascorbic Acid 500 mg Chewable Tablet PO SCH (08:35)
[2020-08-26] MEDS: Cholecalciferol (Vitamin D3) 400 UNITS TAB PO SCH (08:35)
[2020-08-26] MEDS: Zinc Sulfate 220 MG CAP PO SCH (08:35)
[2020-08-26] MEDS: Finasteride 5 MG TAB PO SCH (08:36)
[2020-08-26] MEDS: Dexamethasone 4 MG TAB PO SCH (08:52)
[2020-08-26] MEDS: Enoxaparin Sodium 40 MG/0.4 ML SYRINGE SC SCH (09:22)
[2020-08-26] MEDS: cefTRIAXone\\ROCEPHIN 1 GM in Sodium Chloride 0.9% 100 ML IVPB SCH (11:42)
[2020-08-26] MEDS: REMDESIVIR (EUA) 100 MG in Sodium Chloride 0.9% 250 ML 230 ML IV SCH (14:13)
--- NOTE | 2020-08-26 15:42 | PRG ---
DATE OF SERVICE: 08/26/2020 OBJECTIVE: VITAL SIGNS: Heart rate 53, blood pressure 120/70, FiO2 is at 50%, respiratory rate is 20. Intake and outputs, positive 480. LUNGS: Bilateral equal breath sounds. HEART: Regular rhythm. ABDOMEN: Soft. DIAGNOSTIC STUDIES: Diffuse infiltrates are still seen on his chest x-ray as expected. White count 8.7, hemoglobin 12, platelets 184. Sodium 135, potassium 4.2, chloride 105, bicarb 22, BUN 20, creatinine 0.73. IMPRESSION: COVID pneumonia, status post intubation, 1 week into his illness. PLAN: Continue supportive care. His FiO2 is down to 50% at this time. Job ID: [id number]
--- NOTE | 2020-08-26 15:46 | PDOC.HOSPP ---
- Subjective Encounter Date: 08/26/20 Encounter Time: 09:00 Subjective: on vent, sedated - Objective Vital Signs & Weight: Vital Signs (12 hours) Temp Pulse Resp BP 08/26/20 14:50 53 L 120/70 08/26/20 12:02 59 L 08/26/20 12:00 98.6 F 08/26/20 07:13 57 L 111/74 08/26/20 07:00 99 F 08/26/20 06:00 20 08/26/20 04:23 98.0 F 08/26/20 04:00 98.0 F 20 Weight Admit Weight 160 lb Weight 160 lb 3.2 oz Most Recent Monitor Data Heart Rate from ECG 55 NIBP 124/69 NIBP BP-Mean 87 Respiration from ECG 20 SpO2 99 I&O: 08/25/20 08/26/20 08/27/20 06:59 06:59 06:59 Intake Total 1792.1 370 Output Total 1312 220 Balance 480.1 150 Result Diagrams: 08/26/20 03:09 08/26/20 03:09 Additional Labs: Accuchecks 08/26/20 08/25/20 08/25/20 10:17 21:40 15:42 POC Glucose 107 H 162 H 167 H Hospitalist ROS - Medication Medications: Active Medications Generic Name Dose Route Start Last Admin Trade Name Freq PRN Reason Stop Dose Admin Albuterol Sulfate 2 puff 08/22/20 15:00 08/26/20 14:52 Albuterol 200 Puff (6.7gm Inhaler) INH 2 puff [id number] SHREYAS Administration Ascorbic Acid 1,000 mg 08/23/20 09:00 08/26/20 08:35 Ascorbic Acid 500 Mg Chewable Tablet PO 1,000 mg DAILY SHREYAS Administration Benzonatate 100 mg 08/22/20 11:42 08/24/20 19:15 Benzonatate 100 Mg Cap PO 100 mg TIDPRN PRN Administration Cough Cholecalciferol 400 units 08/23/20 09:00 08/26/20 08:35 Cholecalciferol (Vitamin D3) 400 Units Tab PO 400 units DAILY SHREYAS Administration Dexamethasone 6 mg 08/23/20 08:00 08/26/20 08:52 Dexamethasone 4 Mg Tab PO 6 mg QAM-WM SHREYAS Administration Enoxaparin Sodium 40 mg 08/23/20 09:00 08/26/20 09:22 Enoxaparin Sodium 40 Mg/0.4 Ml Syringe SC 40 mg 0900 SHREYAS Administration Finasteride 5 mg 08/26/20 09:00 08/26/20 08:36 Finasteride 5 Mg Tab PO 5 mg DAILY SHREYAS Administration Guaifenesin/Dextromethorphan 15 ml 08/22/20 11:36 08/24/20 21:30 Guaifenesin Dm 100-10/5 Ml Udcup PO 15 ml Q4H PRN Administration Cough Sodium Chloride 1,000 mls @ 75 mls/hr 08/23/20 10:15 08/26/20 14:17 Normal Saline 0.9% IV 1,000 mls .[id number] SHREYAS Administration Fentanyl 100 mls @ 0 mls/hr 08/25/20 09:30 08/26/20 01:51 Fentanyl Cadd IV 09/24/20 09:30 100 mls INF SHREYAS Administration Protocol Per Protocol Ceftriaxone Sodium 2 gm/ 100 mls @ 200 mls/hr 08/25/20 17:00 08/25/20 18:35 Sodium Chloride IVPB Not Given 1700 SHREYAS Insulin Human Lispro 0 units 08/23/20 10:04 08/25/20 15:50 Humalog 300 Units/3 Ml Vial SC 2 unit .MILD SLIDING SCALE PRN Administration Mild Correctional Scale Insulin Human Lispro 0 units 08/23/20 10:04 08/24/20 19:15 Humalog 300 Units/3 Ml Vial SC 2 unit .BEDTIME SLIDING SC PRN Administration Bedtime Correctional Scale Propofol 1,000 mg 08/25/20 09:30 08/26/20 09:59 Propofol 1,000 Mg/100 Ml Vial IV 09/24/20 09:30 1,000 mg INF PRN Administration TO ACHIEVE GOAL RASS Protocol Tamsulosin HCl 0.4 mg 08/25/20 21:00 08/25/20 21:31 Tamsulosin Hcl 0.4 Mg Cap PO 0.4 mg HS SHREYAS Administration Throat Lozenges 1 nolan 08/24/20 21:43 08/24/20 23:20 Cepastat Lozenges 1 Nolan PO 1 nolan Q2H PRN Administration Sore Throat Zinc Sulfate 220 mg 08/23/20 09:00 08/26/20 08:35 Zinc Sulfate 220 Mg Cap PO 220 mg DAILY SHREYAS Administration - Exam General Appearance: ill appearing Eye: PERRL, anicteric sclera ENT: no oropharyngeal lesions, dry oral mucosa Neck: supple, no JVD Heart: RRR, no murmur Respiratory: no wheezes, no rales, rhonchi Gastrointestinal: soft, non-tender, non-distended, normal bowel sounds Extremities: no cyanosis, no edema Neurological: cranial nerve grossly intact, no focal deficits Hosp A/P (1) Pneumonia due to COVID-19 virus Code(s): U07.1 - COVID-19; J12.82 - PNEUMONIA DUE TO CORONAVIRUS DISEASE 2019 Status: Acute (2) Acute respiratory failure with hypoxia Code(s): J96.01 - ACUTE RESPIRATORY FAILURE WITH HYPOXIA Status: Acute (3) DM type 2 (diabetes mellitus, type 2) Status: Chronic Qualifiers: Diabetes mellitus intermission coordinator insulin use: without retirement use Diabetes mellitus complication status: with hyperglycemia Qualified Code(s): E11.65 - Type 2 diabetes mellitus with hyperglycemia (4) HTN (hypertension) Code(s): I10 - ESSENTIAL (PRIMARY) HYPERTENSION Status: Chronic Qualifiers: Hypertension type: essential hypertension Qualified Code(s): I10 - Essential (primary) hypertension (5) BPH (benign prostatic hyperplasia) Code(s): N40.0 - BENIGN PROSTATIC HYPERPLASIA WITHOUT LOWER URINRY TRACT SYMP Status: Chronic Qualifiers: Lower urinary tract symptom presence: symptoms present (6) Hypothyroidism Code(s): E03.9 - HYPOTHYROIDISM, UNSPECIFIED Status: Chronic Qualifiers: Hypothyroidism type: acquired Qualified Code(s): E03.9 - Hypothyroidism, unspecified - Plan is on albuterol inh, dexamethasone, remdesivir and ceftriaxone got intubated overnight, has extensive infiltrates on cxr add flomax and proscar, appreciate help from with bond placement d/w friend and POA Erendira Sarahi, gave full updates 08/25, 08/26.
[2020-08-26] MEDS ORDERED: Clopidogrel Bisulfate 75 MG TAB ONE (17:27)
[2020-08-26] MEDS: cefTRIAXone\\ROCEPHIN 2 GM in Sodium Chloride 0.9% 100 ML IVPB SCH (17:32)
[2020-08-26] MEDS: Tamsulosin HCl 0.4 MG CAP PO SCH (20:21)
[2020-08-27] MEDS: Propofol 1,000 MG/100 ML VIAL IV PRN ×3 (01:16→20:42)
[2020-08-27] MEDS ORDERED: Fentanyl CADD 100 ML ONE (02:19)
[2020-08-27] MEDS: Fentanyl CADD 100 ML IV SCH (02:42)
[2020-08-27] MEDS: Sodium Chloride 0.9% 1,000 ML IV SCH ×2 (04:37→17:29)
[2020-08-27 07:35] LABS: Anion Gap 14 mmol/L (10-20); BUN (Urea Nitrogen) 22 mg/dL (8.4-25.7); Calc. Creatinine Clearance 97 mL/min (70-130); Calcium 7.2 mg/dL (7.8-10.44); Carbon Dioxide 21 mmol/L (23-31); Chloride 106 mmol/L (98-107); Glucose 119 mg/dL (80-115); Potassium 4.2 mmol/L (3.5-5.1); Sodium 137 mmol/L (136-145)
--- NOTE | 2020-08-27 07:38 | RAD ---
Portable frontal chest radiograph: 08/27/2020 COMPARISON: 08/25/2020 HISTORY: Ventilated patient with Covid pneumonia FINDINGS: Endotracheal tube and nasogastric tube are stable. There is stable linear interstitial dens ity with superimposed groundglass opacity within the right lung with a basilar predominance, and within the left lung base. Findings are consistent with the provided history of Covid pneumonia and d o not appear significantly changed. IMPRESSION: No significant interval change.
[2020-08-27 07:45] LABS: Hemoglobin 12.4 g/dL (14.0-18.0); Mean Corpuscular HGB CONC 33.4 g/dL (32.0-36.0); Mean Corpuscular Volume 95.7 fL (78.0-98.0); Mean Platelet Volume 8.2 fL (7.4-10.4); Platelet Count 195 thou/uL (130-400); RBC Distribution Width 12.1 % (11.5-14.5); Red Blood Cell (RBC) Count 3.89 mill/uL (4.70-6.10); White Blood Cell (WBC) Count 13.1 thou/uL (4.8-10.8)
[2020-08-27] MEDS: Albuterol 200 PUFF (6.7GM INHALER) INH SCH ×4 (07:57→20:01)
[2020-08-27] MEDS: Dexamethasone 4 MG TAB PO SCH (08:19)
[2020-08-27] MEDS: Cholecalciferol (Vitamin D3) 400 UNITS TAB PO SCH (08:19)
[2020-08-27] MEDS: Finasteride 5 MG TAB PO SCH (08:19)
[2020-08-27] MEDS: Zinc Sulfate 220 MG CAP PO SCH (08:19)
[2020-08-27] MEDS: Enoxaparin Sodium 40 MG/0.4 ML SYRINGE SC SCH (08:19)
[2020-08-27] MEDS: Ascorbic Acid 500 mg Chewable Tablet PO SCH (08:19)
[2020-08-27 08:26] LABS: Band 5 % (5-11); Lymphocytes 6 % (21-51); MDiff Complete? YES; Monocytes 3 % (0-10); Neutrophil 86 % (42-75); RBC Morphology Normal
--- NOTE | 2020-08-27 09:24 | PRG ---
DATE OF SERVICE: 08/27/2020 TIME SPENT: This is 35 minutes of critical care time. SUBJECTIVE: The patient is intubated and sedated. He actually looks very good this morning. OBJECTIVE: VITAL SIGNS: On exam, temperature is 98 with a T-max of 99, pulse 54, blood pressure 131/73, O2 saturation 98%. 24-hour intake 2400, output 1259. HEENT: Unremarkable. NECK: No adenopathy, JVD. LUNGS: Fairly clear. CARDIAC: S1, S2. Slightly bradycardic. Abdomen: Soft, nontender. EXTREMITIES: No overt edema. LABORATORY DATA: White blood cell count 13, hematocrit 37.2, and platelet count 195. Sodium 137, potassium 4.2, chloride 106, CO2 of 21, BUN 22, creatinine 0.7, and glucose 119. His chest x-ray is actually clearing compared to previous. ASSESSMENT: 1. COVID-19 pneumonia. 2. Respiratory failure requiring mechanical ventilation. PLAN: I am going to significantly decrease his ventilator settings in preparation for extubation soon. We will convert him over to a Precedex drip. He finished his remdesivir yesterday. He is on empiric Rocephin. He is anticoagulated with enoxaparin. He is also receiving dexamethasone. Job ID: [id number]
--- NOTE | 2020-08-27 15:21 | PDOC.HOSPP ---
- Subjective Encounter Date: 08/27/20 Encounter Time: 08:00 Subjective: is on vent, sedated - Objective Vital Signs & Weight: Vital Signs (12 hours) Temp Pulse Resp BP Pulse Ox 08/27/20 14:44 51 L 121/76 08/27/20 12:00 96 F L 10 L 08/27/20 11:16 50 L 114/73 08/27/20 10:00 6 L 08/27/20 08:00 97.5 F L 8 L 97 08/27/20 07:57 56 L 141/69 H 08/27/20 06:00 20 08/27/20 04:00 98.0 F 21 H Weight Admit Weight 160 lb Weight 160 lb 3.2 oz Most Recent Monitor Data Heart Rate from ECG 50 NIBP 106/67 NIBP BP-Mean 80 Respiration from ECG 13 SpO2 100 I&O: 08/26/20 08/27/20 08/28/20 06:59 06:59 06:59 Intake Total 1792.1 2400.3 60 Output Total 1312 1259 500 Balance 480.1 1141.3 -440 Result Diagrams: 08/27/20 07:03 08/27/20 07:03 Additional Labs: Accuchecks 08/27/20 08/27/20 08/27/20 12:12 08:29 06:04 POC Glucose 135 H 107 H 130 H 08/26/20 08/26/20 08/26/20 20:24 16:19 13:01 POC Glucose 192 H 165 H 120 H Hospitalist ROS - Medication Medications: Active Medications Generic Name Dose Route Start Last Admin Trade Name Albaroq PRN Reason Stop Dose Admin Albuterol Sulfate 2 puff 08/22/20 15:00 08/27/20 14:51 Albuterol 200 Puff (6.7gm Inhaler) INH 2 puff [id number] SHREYAS Administration Ascorbic Acid 1,000 mg 08/23/20 09:00 08/27/20 08:19 Ascorbic Acid 500 Mg Chewable Tablet PO 1,000 mg DAILY SHREYAS Administration Benzonatate 100 mg 08/22/20 11:42 08/24/20 19:15 Benzonatate 100 Mg Cap PO 100 mg TIDPRN PRN Administration Cough Cholecalciferol 400 units 08/23/20 09:00 08/27/20 08:19 Cholecalciferol (Vitamin D3) 400 Units Tab PO 400 units DAILY SHREYAS Administration Dexamethasone 6 mg 08/23/20 08:00 08/27/20 08:19 Dexamethasone 4 Mg Tab PO 6 mg QAM-WM SHREYAS Administration Enoxaparin Sodium 40 mg 08/23/20 09:00 08/27/20 08:19 Enoxaparin Sodium 40 Mg/0.4 Ml Syringe SC 40 mg 0900 SHREYAS Administration Finasteride 5 mg 08/26/20 09:00 08/27/20 08:19 Finasteride 5 Mg Tab PO 5 mg DAILY SHREYAS Administration Guaifenesin/Dextromethorphan 15 ml 08/22/20 11:36 08/24/20 21:30 Guaifenesin Dm 100-10/5 Ml Udcup PO 15 ml Q4H PRN Administration Cough Sodium Chloride 1,000 mls @ 75 mls/hr 08/23/20 10:15 08/27/20 04:37 Normal Saline 0.9% IV 1,000 mls .[id number] SHREYAS Administration Fentanyl 100 mls @ 0 mls/hr 08/25/20 09:30 08/27/20 02:42 Fentanyl Cadd IV 09/24/20 09:30 100 mls INF SHREYAS Administration Protocol Per Protocol Ceftriaxone Sodium 2 gm/ 100 mls @ 200 mls/hr 08/25/20 17:00 08/26/20 17:32 Sodium Chloride IVPB 100 mls 1700 SHREYAS Administration Dexmedetomidine HCl 400 mcg/ 100 mls @ 0 mls/hr 08/27/20 09:30 08/27/20 09:58 Sodium Chloride IVPB 100 mls INF SHREYAS Administration Protocol Per Protocol Insulin Human Lispro 0 units 08/23/20 10:04 08/25/20 15:50 Humalog 300 Units/3 Ml Vial SC 2 unit .MILD SLIDING SCALE PRN Administration Mild Correctional Scale Insulin Human Lispro 0 units 08/23/20 10:04 08/24/20 19:15 Humalog 300 Units/3 Ml Vial SC 2 unit .BEDTIME SLIDING SC PRN Administration Bedtime Correctional Scale Propofol 1,000 mg 08/25/20 09:30 08/27/20 09:01 Propofol 1,000 Mg/100 Ml Vial IV 09/24/20 09:30 1,000 mg INF PRN Administration TO ACHIEVE GOAL RASS Protocol Tamsulosin HCl 0.4 mg 08/25/20 21:00 08/26/20 20:21 Tamsulosin Hcl 0.4 Mg Cap PO 0.4 mg HS SHREYAS Administration Throat Lozenges 1 nolan 08/24/20 21:43 08/24/20 23:20 Cepastat Lozenges 1 Nolan PO 1 nolan Q2H PRN Administration Sore Throat Zinc Sulfate 220 mg 08/23/20 09:00 08/27/20 08:19 Zinc Sulfate 220 Mg Cap PO 220 mg DAILY SHREYAS Administration - Exam Eye: PERRL, anicteric sclera ENT: no oropharyngeal lesions, dry oral mucosa Neck: supple, no JVD Heart: RRR, no murmur Respiratory: no wheezes, rales, rhonchi Gastrointestinal: soft, non-tender, non-distended, normal bowel sounds Extremities: no cyanosis, no edema Neurological: cranial nerve grossly intact, no focal deficits Hosp A/P (1) Pneumonia due to COVID-19 virus Code(s): U07.1 - COVID-19; J12.82 - PNEUMONIA DUE TO CORONAVIRUS DISEASE 2019 Status: Acute (2) Acute respiratory failure with hypoxia Code(s): J96.01 - ACUTE RESPIRATORY FAILURE WITH HYPOXIA Status: Acute (3) DM type 2 (diabetes mellitus, type 2) Status: Chronic Qualifiers: Diabetes mellitus group home insulin use: without group home use Diabetes mellitus complication status: with hyperglycemia Qualified Code(s): E11.65 - Type 2 diabetes mellitus with hyperglycemia (4) HTN (hypertension) Code(s): I10 - ESSENTIAL (PRIMARY) HYPERTENSION Status: Chronic Qualifiers: Hypertension type: essential hypertension Qualified Code(s): I10 - Essential (primary) hypertension (5) BPH (benign prostatic hyperplasia) Code(s): N40.0 - BENIGN PROSTATIC HYPERPLASIA WITHOUT LOWER URINRY TRACT SYMP Status: Chronic Qualifiers: Lower urinary tract symptom presence: symptoms present (6) Hypothyroidism Code(s): E03.9 - HYPOTHYROIDISM, UNSPECIFIED Status: Chronic Qualifiers: Hypothyroidism type: acquired Qualified Code(s): E03.9 - Hypothyroidism, unspecified - Plan is on albuterol inh, dexamethasone, finished full course of remdesivir. got intubated 08/25, has extensive infiltrates on cxr, weaning per pulm advice continue flomax and proscar, appreciate help from with bond placement d/w friend and POA MsPool Mcclain, gave full updates 08/25, 08/26, unable to reach her on 08/27 x2.
[2020-08-27] MEDS: cefTRIAXone\\ROCEPHIN 2 GM in Sodium Chloride 0.9% 100 ML IVPB SCH (17:29)
[2020-08-27] MEDS: Tamsulosin HCl 0.4 MG CAP PO SCH (20:42)
[2020-08-28 04:11] LABS: Hemoglobin 12.4 g/dL (14.0-18.0); Mean Corpuscular HGB CONC 34.3 g/dL (32.0-36.0); Mean Corpuscular Hemoglobin 32.4 pg (27.0-31.0); Mean Corpuscular Volume 94.4 fL (78.0-98.0); Mean Platelet Volume 7.8 fL (7.4-10.4); Platelet Count 204 thou/uL (130-400); RBC Distribution Width 12.2 % (11.5-14.5); Red Blood Cell (RBC) Count 3.84 mill/uL (4.70-6.10); White Blood Cell (WBC) Count 8.4 thou/uL (4.8-10.8)
[2020-08-28 04:12] LABS: Band 3 % (5-11); Hypochromia SLIGHT = 6-15 cells (100X) (0-5/hpf); Lymphocytes 9 % (21-51); MDiff Complete? YES; Monocytes 3 % (0-10); Neutrophil 85 % (42-75); Platelet Morphology Comment Appears Adequate
[2020-08-28 04:17] LABS: Anion Gap 12 mmol/L (10-20); BUN (Urea Nitrogen) 23 mg/dL (8.4-25.7); Calc. Creatinine Clearance 101 mL/min (70-130); Calcium 7.2 mg/dL (7.8-10.44); Carbon Dioxide 23 mmol/L (23-31); Chloride 106 mmol/L (98-107); Glucose 121 mg/dL (80-115); Potassium 4.4 mmol/L (3.5-5.1); Sodium 137 mmol/L (136-145)
[2020-08-28] MEDS ORDERED: Fentanyl CADD 100 ML ONE (04:42)
[2020-08-28] MEDS: Albuterol 200 PUFF (6.7GM INHALER) INH SCH ×3 (07:00→18:35)
[2020-08-28] MEDS: Sodium Chloride 0.9% 1,000 ML IV SCH ×2 (08:00→21:31)
[2020-08-28] MEDS: Propofol 1,000 MG/100 ML VIAL IV PRN ×2 (08:41→16:05)
[2020-08-28] MEDS: Finasteride 5 MG TAB PO SCH (08:53)
[2020-08-28] MEDS: Ascorbic Acid 500 mg Chewable Tablet PO SCH (08:53)
[2020-08-28] MEDS: Zinc Sulfate 220 MG CAP PO SCH (08:53)
[2020-08-28] MEDS: Enoxaparin Sodium 40 MG/0.4 ML SYRINGE SC SCH (08:53)
[2020-08-28] MEDS: Pantoprazole 40 MG VIAL IVP SCH (08:53)
[2020-08-28] MEDS: Cholecalciferol (Vitamin D3) 400 UNITS TAB PO SCH (08:53)
[2020-08-28] MEDS: Dexamethasone 4 MG TAB PO SCH (09:01)
--- NOTE | 2020-08-28 15:45 | PRG ---
DATE OF SERVICE: 08/28/2020 OBJECTIVE: VITAL SIGNS: Heart rates in the 50s, blood pressure 130/74, respiratory rates in the teens, oximetry is 99. LUNGS: Distant, clear. HEART: Regular rhythm. ABDOMEN: Soft. LABORATORY DATA: White count 8.4, hemoglobin 12.4, platelets 204. Electrolytes are normal. Creatinine is 0.7. FiO2 is at 40%. IMPRESSION: COVID pneumonia, clinically doing well. We may able to consider spontaneous breathing trial tomorrow. Critical care time 30 min. Job ID: [id number] MTDD
[2020-08-28] MEDS: cefTRIAXone\\ROCEPHIN 2 GM in Sodium Chloride 0.9% 100 ML IVPB SCH (16:05)
--- NOTE | 2020-08-28 16:17 | PDOC.HOSPP ---
- Subjective Encounter Date: 08/28/20 Encounter Time: 08:25 Subjective: fully awake, is trying to get up, wants his tube and restraints removed - Objective Vital Signs & Weight: Vital Signs (12 hours) Temp Pulse Resp BP Pulse Ox 08/28/20 15:20 51 L 131/75 08/28/20 12:00 97.2 F L 10 L 08/28/20 10:50 57 L 114/71 08/28/20 10:00 9 L 08/28/20 08:20 97 08/28/20 08:10 53 L 129/72 08/28/20 08:00 97 F L 08/28/20 07:32 7 L 08/28/20 07:22 96 08/28/20 06:00 14 Weight Admit Weight 160 lb 3.2 oz Weight 160 lb 3.2 oz Most Recent Monitor Data Heart Rate from ECG 52 NIBP 130/74 NIBP BP-Mean 92 Respiration from ECG 14 SpO2 99 I&O: 08/27/20 08/28/20 08/29/20 06:59 06:59 06:59 Intake Total 2400.3 1214.6 Output Total 1259 1350 415 Balance 1141.3 -135.4 -415 Result Diagrams: 08/28/20 03:27 08/28/20 03:27 Additional Labs: Accuchecks 08/28/20 08/28/20 08/28/20 12:16 09:05 05:24 POC Glucose 121 H 97 112 H 08/27/20 08/27/20 19:40 16:59 POC Glucose 161 H 164 H Hospitalist ROS - Medication Medications: Active Medications Generic Name Dose Route Start Last Admin Trade Name Freq PRN Reason Stop Dose Admin Albuterol Sulfate 2 puff 08/22/20 15:00 08/28/20 10:56 Albuterol 200 Puff (6.7gm Inhaler) INH 2 puff [id number] SHREYAS Administration Ascorbic Acid 1,000 mg 08/23/20 09:00 08/28/20 08:53 Ascorbic Acid 500 Mg Chewable Tablet PO 1,000 mg DAILY SHREYAS Administration Benzonatate 100 mg 08/22/20 11:42 08/24/20 19:15 Benzonatate 100 Mg Cap PO 100 mg TIDPRN PRN Administration Cough Cholecalciferol 400 units 08/23/20 09:00 08/28/20 08:53 Cholecalciferol (Vitamin D3) 400 Units Tab PO 400 units DAILY SHREYAS Administration Dexamethasone 6 mg 08/23/20 08:00 08/28/20 09:01 Dexamethasone 4 Mg Tab PO 6 mg QAM-WM SHREYAS Administration Enoxaparin Sodium 40 mg 08/23/20 09:00 08/28/20 08:53 Enoxaparin Sodium 40 Mg/0.4 Ml Syringe SC 40 mg 0900 SHREYAS Administration Finasteride 5 mg 08/26/20 09:00 08/28/20 08:53 Finasteride 5 Mg Tab PO 5 mg DAILY SHREYAS Administration Guaifenesin/Dextromethorphan 15 ml 08/22/20 11:36 08/24/20 21:30 Guaifenesin Dm 100-10/5 Ml Udcup PO 15 ml Q4H PRN Administration Cough Sodium Chloride 1,000 mls @ 75 mls/hr 08/23/20 10:15 08/28/20 08:00 Normal Saline 0.9% IV 1,000 mls .[id number] SHREYAS Administration Fentanyl 100 mls @ 0 mls/hr 08/25/20 09:30 08/27/20 02:42 Fentanyl Cadd IV 09/24/20 09:30 100 mls INF SHREYAS Administration Protocol Per Protocol Ceftriaxone Sodium 2 gm/ 100 mls @ 200 mls/hr 08/25/20 17:00 08/28/20 16:05 Sodium Chloride IVPB 100 mls 1700 SHREYAS Administration Dexmedetomidine HCl 400 mcg/ 100 mls @ 0 mls/hr 08/27/20 09:30 08/28/20 08:41 Sodium Chloride IVPB 100 mls INF SHREYAS Administration Protocol Per Protocol Insulin Human Lispro 0 units 08/23/20 10:04 08/25/20 15:50 Humalog 300 Units/3 Ml Vial SC 2 unit .MILD SLIDING SCALE PRN Administration Mild Correctional Scale Insulin Human Lispro 0 units 08/23/20 10:04 08/24/20 19:15 Humalog 300 Units/3 Ml Vial SC 2 unit .BEDTIME SLIDING SC PRN Administration Bedtime Correctional Scale Pantoprazole Sodium 40 mg 08/28/20 09:00 08/28/20 08:53 Pantoprazole 40 Mg Vial IVP 40 mg DAILY SHREYAS Administration Propofol 1,000 mg 08/25/20 09:30 08/28/20 16:05 Propofol 1,000 Mg/100 Ml Vial IV 09/24/20 09:30 1,000 mg INF PRN Administration TO ACHIEVE GOAL RASS Protocol Tamsulosin HCl 0.4 mg 08/25/20 21:00 08/27/20 20:42 Tamsulosin Hcl 0.4 Mg Cap PO 0.4 mg HS SHREYAS Administration Throat Lozenges 1 nolan 08/24/20 21:43 08/24/20 23:20 Cepastat Lozenges 1 Nolan PO 1 nolan Q2H PRN Administration Sore Throat Zinc Sulfate 220 mg 08/23/20 09:00 08/28/20 08:53 Zinc Sulfate 220 Mg Cap PO 220 mg DAILY SHREYAS Administration Hospitalist Exam Vitals: Vital Signs (12 hours) Temp Pulse Resp BP Pulse Ox 08/28/20 15:20 51 L 131/75 08/28/20 12:00 97.2 F L 10 L 08/28/20 10:50 57 L 114/71 08/28/20 10:00 9 L 08/28/20 08:20 97 08/28/20 08:10 53 L 129/72 08/28/20 08:00 97 F L 08/28/20 07:32 7 L 08/28/20 07:22 96 08/28/20 06:00 14 Weight Admit Weight 160 lb 3.2 oz Weight 160 lb 3.2 oz Most Recent Monitor Data Heart Rate from ECG 52 NIBP 130/74 NIBP BP-Mean 92 Respiration from ECG 14 SpO2 99 Eye: PERRL, anicteric sclera ENT: no oropharyngeal lesions, dry oral mucosa Neck: supple, no JVD Heart: RRR, no murmur Respiratory: no wheezes, rales, rhonchi Gastrointestinal: soft, non-tender, non-distended, normal bowel sounds Extremities: no cyanosis, no edema Neurological: cranial nerve grossly intact, no focal deficits Hosp A/P (1) Pneumonia due to COVID-19 virus Code(s): U07.1 - COVID-19; J12.82 - PNEUMONIA DUE TO CORONAVIRUS DISEASE 2019 Status: Acute (2) Acute respiratory failure with hypoxia Code(s): J96.01 - ACUTE RESPIRATORY FAILURE WITH HYPOXIA Status: Acute (3) DM type 2 (diabetes mellitus, type 2) Status: Chronic Qualifiers: Diabetes mellitus emt intermediate insulin use: without emt intermediate use Diabetes mellitus complication status: with hyperglycemia Qualified Code(s): E11.65 - Type 2 diabetes mellitus with hyperglycemia (4) HTN (hypertension) Code(s): I10 - ESSENTIAL (PRIMARY) HYPERTENSION Status: Chronic Qualifiers: Hypertension type: essential hypertension Qualified Code(s): I10 - Essential (primary) hypertension (5) BPH (benign prostatic hyperplasia) Code(s): N40.0 - BENIGN PROSTATIC HYPERPLASIA WITHOUT LOWER URINRY TRACT SYMP Status: Chronic Qualifiers: Lower urinary tract symptom presence: symptoms present (6) Hypothyroidism Code(s): E03.9 - HYPOTHYROIDISM, UNSPECIFIED Status: Chronic Qualifiers: Hypothyroidism type: acquired Qualified Code(s): E03.9 - Hypothyroidism, unspecified - Plan is on albuterol inh, dexamethasone, finished full course of remdesivir. got intubated 08/25, has extensive infiltrates on cxr, weaning per pulm advice continue flomax and proscar, appreciate help from with bond placement d/w friend and POA Erendira Mcclain, gave full updates 08/25, 08/26, unable to reach her on 08/27 x2, spoke to her and updated on 08/28.
[2020-08-28] MEDS: Tamsulosin HCl 0.4 MG CAP PO SCH (21:31)
[2020-08-29] MEDS: Propofol 1,000 MG/100 ML VIAL IV PRN ×2 (01:53→08:43)
[2020-08-29 03:41] LABS: #Lymphocytes 0.5 thou/uL (1.20-3.40); #Monocytes 0.2 thou/uL (0.11-0.59); #Neutrophils 7.4 thou/uL (1.40-6.50); %Basophils 0.3 % (0.0-1.0); %Eosinophils 0.2 % (0.0-10.0); %Lymphocytes 5.6 % (21.0-51.0); %Monocytes 2.8 % (0.0-10.0); %Neutrophils 91.1 % (42.0-75.0); Hemoglobin 13.4 g/dL (14.0-18.0); Mean Corpuscular HGB CONC 33.4 g/dL (32.0-36.0); Mean Corpuscular Hemoglobin 31.4 pg (27.0-31.0); Platelet Count 201 thou/uL (130-400); RBC Distribution Width 12.1 % (11.5-14.5); Red Blood Cell (RBC) Count 4.28 mill/uL (4.70-6.10); White Blood Cell (WBC) Count 8.2 thou/uL (4.8-10.8)
[2020-08-29 04:02] LABS: ALT (SGPT) 16 U/L (8-55); AST (SGOT) 16 U/L (5-34); Albumin 2.5 g/dL (3.4-4.8); Alkaline Phosphatase 56 U/L (40-110); Anion Gap 14 mmol/L (10-20); BUN (Urea Nitrogen) 20 mg/dL (8.4-25.7); Bilirubin, Total 0.3 mg/dL (0.2-1.2); Calc. Creatinine Clearance 118 mL/min (70-130); Calcium 7.4 mg/dL (7.8-10.44); Carbon Dioxide 20 mmol/L (23-31); Chloride 105 mmol/L (98-107); Globulin 2.8 g/dL (2.4-3.5); Glucose 111 mg/dL (80-115); Potassium 4.4 mmol/L (3.5-5.1); Protein, Total 5.3 g/dL (5.8-8.1); Sodium 135 mmol/L (136-145)
[2020-08-29] MEDS ORDERED: Fentanyl CADD 100 ML ONE (06:21)
[2020-08-29] MEDS: Albuterol 200 PUFF (6.7GM INHALER) INH SCH ×5 (07:12→18:31)
[2020-08-29] MEDS: Zinc Sulfate 220 MG CAP PO SCH (08:42)
[2020-08-29] MEDS: Dexamethasone 4 MG TAB PO SCH (08:42)
[2020-08-29] MEDS: Finasteride 5 MG TAB PO SCH (08:42)
[2020-08-29] MEDS: Ascorbic Acid 500 mg Chewable Tablet PO SCH (08:42)
[2020-08-29] MEDS: Cholecalciferol (Vitamin D3) 400 UNITS TAB PO SCH (08:42)
[2020-08-29] MEDS: Enoxaparin Sodium 40 MG/0.4 ML SYRINGE SC SCH (08:43)
[2020-08-29] MEDS: Pantoprazole 40 MG VIAL IVP SCH (08:43)
[2020-08-29] MEDS: Sodium Chloride 0.9% 1,000 ML IV SCH (12:32)
--- NOTE | 2020-08-29 14:10 | PRG ---
DATE OF SERVICE: 08/29/2020 SUBJECTIVE: Demetrio Greenberg did well on 05/07, this morning was switched to 5 of pressure support and 3 of PEEP. He did well with that. His minute volume was 8 L/minute. He passed a leak test. His negative inspiratory force was adequate. He has subsequently been extubated. OBJECTIVE: VITAL SIGNS: He is afebrile. His oximetry is 96 on 3 L cannula. Heart rates in the 80s, blood pressure 175/101. GENERAL: He is in no distress. LUNGS: Remarkable for coarse equal breath sounds. HEART: Regular rhythm. ABDOMEN: Soft. LABORATORY DATA: White count 8.2, hemoglobin 13.4, platelets 201. Sodium 135, potassium 4.4, chloride 105, bicarb 20, BUN 20, creatinine 0.6. IMPRESSION: COVID pneumonia with respiratory failure, now extubated, clinically stable. I would recommend Eliquis twice a day unless he develops some complication of bleeding. We will continue to follow. Hopefully, transfer out of the Critical Care Unit tomorrow. Critical care time 30 min. Job ID: [id number] MTDD
--- NOTE | 2020-08-29 17:39 | PDOC.HOSPP ---
- Subjective Encounter Date: 08/29/20 Encounter Time: 09:00 Subjective: awake, on vent with mild sedation this am responds well to verbal stimuli - Objective Vital Signs & Weight: Vital Signs (12 hours) Temp Pulse Resp BP Pulse Ox 08/29/20 16:00 98.2 F 96 08/29/20 15:09 95 08/29/20 12:20 96 08/29/20 12:00 97 F L 96 08/29/20 10:00 19 08/29/20 08:00 98.2 F 15 99 08/29/20 07:47 60 164/91 H 100 08/29/20 06:00 16 Weight Admit Weight 160 lb 3.2 oz Weight 160 lb 3.2 oz Most Recent Monitor Data Heart Rate from ECG 102 NIBP 150/97 NIBP BP-Mean 114 Respiration from ECG 33 SpO2 92 I&O: 08/28/20 08/29/20 08/30/20 06:59 06:59 06:59 Intake Total 1214.6 2436.4 137.5 Output Total 1350 1640 970 Balance -135.4 796.4 -832.5 Result Diagrams: 08/29/20 03:21 08/29/20 03:21 Additional Labs: Accuchecks 08/29/20 08/29/20 08/28/20 09:04 05:52 20:08 POC Glucose 104 H 102 H 179 H Hospitalist ROS - Medication Medications: Active Medications Generic Name Dose Route Start Last Admin Trade Name Freq PRN Reason Stop Dose Admin Albuterol Sulfate 2 puff 08/22/20 15:00 08/29/20 15:33 Albuterol 200 Puff (6.7gm Inhaler) INH 2 puff [id number] SHREYAS Administration Ascorbic Acid 1,000 mg 08/23/20 09:00 08/29/20 08:42 Ascorbic Acid 500 Mg Chewable Tablet PO 1,000 mg DAILY SHREYAS Administration Benzonatate 100 mg 08/22/20 11:42 08/24/20 19:15 Benzonatate 100 Mg Cap PO 100 mg TIDPRN PRN Administration Cough Cholecalciferol 400 units 08/23/20 09:00 08/29/20 08:42 Cholecalciferol (Vitamin D3) 400 Units Tab PO 400 units DAILY SHREYAS Administration Dexamethasone 6 mg 08/23/20 08:00 08/29/20 08:42 Dexamethasone 4 Mg Tab PO 6 mg QAM-WM SHREYAS Administration Finasteride 5 mg 08/26/20 09:00 08/29/20 08:42 Finasteride 5 Mg Tab PO 5 mg DAILY SHREYAS Administration Guaifenesin/Dextromethorphan 15 ml 08/22/20 11:36 08/24/20 21:30 Guaifenesin Dm 100-10/5 Ml Udcup PO 15 ml Q4H PRN Administration Cough Sodium Chloride 1,000 mls @ 75 mls/hr 08/23/20 10:15 08/29/20 12:32 Normal Saline 0.9% IV 1,000 mls .[id number] SHREYAS Administration Ceftriaxone Sodium 2 gm/ 100 mls @ 200 mls/hr 08/25/20 17:00 08/28/20 16:05 Sodium Chloride IVPB 100 mls 1700 SHREYAS Administration Dexmedetomidine HCl 400 mcg/ 100 mls @ 0 mls/hr 08/27/20 09:30 08/29/20 03:14 Sodium Chloride IVPB 100 mls INF SHREYAS Administration Protocol Per Protocol Insulin Human Lispro 0 units 08/23/20 10:04 08/25/20 15:50 Humalog 300 Units/3 Ml Vial SC 2 unit .MILD SLIDING SCALE PRN Administration Mild Correctional Scale Insulin Human Lispro 0 units 08/23/20 10:04 08/24/20 19:15 Humalog 300 Units/3 Ml Vial SC 2 unit .BEDTIME SLIDING SC PRN Administration Bedtime Correctional Scale Lorazepam 2 mg 08/25/20 09:30 08/29/20 14:04 Lorazepam 2 Mg/Ml Vial SLOW IVP 09/24/20 09:30 2 mg Q1H PRN Administration Breakthrough agitation Tamsulosin HCl 0.4 mg 08/25/20 21:00 08/28/20 21:31 Tamsulosin Hcl 0.4 Mg Cap PO 0.4 mg HS SHREYAS Administration Throat Lozenges 1 nolan 08/24/20 21:43 08/24/20 23:20 Cepastat Lozenges 1 Nolan PO 1 nolan Q2H PRN Administration Sore Throat Zinc Sulfate 220 mg 08/23/20 09:00 08/29/20 08:42 Zinc Sulfate 220 Mg Cap PO 220 mg DAILY SHREYAS Administration Hospitalist Exam Vitals: Vital Signs (12 hours) Temp Pulse Resp BP Pulse Ox 08/29/20 16:00 98.2 F 96 08/29/20 15:09 95 08/29/20 12:20 96 08/29/20 12:00 97 F L 96 08/29/20 10:00 19 08/29/20 08:00 98.2 F 15 99 08/29/20 07:47 60 164/91 H 100 08/29/20 06:00 16 Weight Admit Weight 160 lb 3.2 oz Weight 160 lb 3.2 oz Most Recent Monitor Data Heart Rate from ECG 102 NIBP 150/97 NIBP BP-Mean 114 Respiration from ECG 33 SpO2 92 Eye: PERRL, anicteric sclera ENT: no oropharyngeal lesions, moist mucosa Neck: supple, no JVD Heart: RRR, no murmur Respiratory: no wheezes, rales, rhonchi Gastrointestinal: soft, non-tender, non-distended, normal bowel sounds Extremities: no cyanosis, no edema Neurological: cranial nerve grossly intact, no focal deficits Hosp A/P (1) Pneumonia due to COVID-19 virus Code(s): U07.1 - COVID-19; J12.82 - PNEUMONIA DUE TO CORONAVIRUS DISEASE 2019 Status: Acute (2) Acute respiratory failure with hypoxia Code(s): J96.01 - ACUTE RESPIRATORY FAILURE WITH HYPOXIA Status: Acute (3) DM type 2 (diabetes mellitus, type 2) Status: Chronic Qualifiers: Diabetes mellitus exterminator helper termite insulin use: without assisted use Diabetes mellitus complication status: with hyperglycemia Qualified Code(s): E11.65 - Type 2 diabetes mellitus with hyperglycemia (4) HTN (hypertension) Code(s): I10 - ESSENTIAL (PRIMARY) HYPERTENSION Status: Chronic Qualifiers: Hypertension type: essential hypertension Qualified Code(s): I10 - Essential (primary) hypertension (5) BPH (benign prostatic hyperplasia) Code(s): N40.0 - BENIGN PROSTATIC HYPERPLASIA WITHOUT LOWER URINRY TRACT SYMP Status: Chronic Qualifiers: Lower urinary tract symptom presence: symptoms present (6) Hypothyroidism Code(s): E03.9 - HYPOTHYROIDISM, UNSPECIFIED Status: Chronic Qualifiers: Hypothyroidism type: acquired Qualified Code(s): E03.9 - Hypothyroidism, unspecified - Plan is on albuterol inh, dexamethasone, finished full course of remdesivir. got intubated 08/25 and extubated this am 08/29, has extensive infiltrates on cxr, spo2 of 94% on 3 lts NC post extubation. continue flomax and proscar, appreciate help from with bond placement d/w friend and POA Ms.Kubena Mcclain, gave full updates 08/25, 08/26, unable to reach her on 08/27 x2, spoke to her and updated on 08/28, 08/29. encourage po intake
[2020-08-29] MEDS: Nitroglycerin 2% Ointment 1 INCH/1 GM Packet TOP PRN (18:39)
[2020-08-29] MEDS: Tamsulosin HCl 0.4 MG CAP PO SCH (21:53)
[2020-08-29] MEDS: Apixaban 5 MG TAB PO SCH (21:53)
[2020-08-29] MEDS: cefTRIAXone\\ROCEPHIN 2 GM in Sodium Chloride 0.9% 100 ML IVPB SCH (22:41)
[2020-08-30] MEDS ORDERED: Lorazepam 2 MG/ML VIAL SLOW IVP SCH (01:30)
[2020-08-30] MEDS: Albuterol 200 PUFF (6.7GM INHALER) INH SCH ×3 (07:19→18:47)
[2020-08-30] MEDS: Sodium Chloride 0.9% 1,000 ML IV SCH ×3 (08:12→20:55)
[2020-08-30] MEDS: Pantoprazole 40 MG VIAL IVP SCH (08:12)
[2020-08-30] MEDS: Nitroglycerin 2% Ointment 1 INCH/1 GM Packet TOP PRN ×2 (08:12→18:44)
[2020-08-30] MEDS: Cholecalciferol (Vitamin D3) 400 UNITS TAB PO SCH (08:34)
[2020-08-30] MEDS: Dexamethasone 4 MG TAB PO SCH (08:34)
[2020-08-30] MEDS: Apixaban 5 MG TAB PO SCH ×2 (08:34→20:54)
[2020-08-30] MEDS: Ascorbic Acid 500 mg Chewable Tablet PO SCH (08:34)
[2020-08-30] MEDS: Finasteride 5 MG TAB PO SCH (08:35)
[2020-08-30] MEDS: Zinc Sulfate 220 MG CAP PO SCH (08:35)
[2020-08-30] MEDS ORDERED: Pantoprazole 40 MG GRANULES PACKET PER TUBE SCH (09:00)
[2020-08-30 09:28] LABS: ALT (SGPT) 17 U/L (8-55); AST (SGOT) 26 U/L (5-34); Albumin 3.1 g/dL (3.4-4.8); Alkaline Phosphatase 63 U/L (40-110); Anion Gap 16 mmol/L (10-20); BUN (Urea Nitrogen) 14 mg/dL (8.4-25.7); Bilirubin, Total 0.6 mg/dL (0.2-1.2); Calc. Creatinine Clearance 95 mL/min (70-130); Calcium 8.1 mg/dL (7.8-10.44); Carbon Dioxide 25 mmol/L (23-31); Chloride 97 mmol/L (98-107); Globulin 3.4 g/dL (2.4-3.5); Glucose 118 mg/dL (80-115); Potassium 3.7 mmol/L (3.5-5.1); Protein, Total 6.5 g/dL (5.8-8.1); Sodium 134 mmol/L (136-145)
[2020-08-30 09:36] LABS: Band 14 % (5-11); Hemoglobin 14.6 g/dL (14.0-18.0); Lymphocytes 2 % (21-51); MDiff Complete? YES; Mean Corpuscular HGB CONC 33.9 g/dL (32.0-36.0); Mean Corpuscular Hemoglobin 32.2 pg (27.0-31.0); Mean Corpuscular Volume 94.8 fL (78.0-98.0); Mean Platelet Volume 8.1 fL (7.4-10.4); Monocytes 3 % (0-10); Neutrophil 79 % (42-75); Platelet Count 233 thou/uL (130-400); Platelet Morphology Comment Appears Adequate; RBC Morphology Normal; Reactive Lymphocytes 2 % (0-10); Red Blood Cell (RBC) Count 4.53 mill/uL (4.70-6.10); White Blood Cell (WBC) Count 14.1 thou/uL (4.8-10.8)
[2020-08-30] MEDS: Scopolamine 1.5 mg/72 hour Patch TD SCH (11:16)
[2020-08-30] MEDS: Metoprolol Tartrate 5 MG/5 ML VIAL IVP PRN ×2 (14:31→18:44)
--- NOTE | 2020-08-30 15:46 | PDOC.HOSPP ---
- Subjective Encounter Date: 08/30/20 Encounter Time: 09:00 Subjective: he is obtunded this am, spo2 is good he was agitated last night and got a dose of ativan per staff - Objective Vital Signs & Weight: Vital Signs (12 hours) Temp Pulse Ox 08/30/20 12:00 97.6 F 08/30/20 08:00 98.5 F 99 08/30/20 07:19 98 08/30/20 04:00 99.6 F Weight Admit Weight 160 lb 3.2 oz Weight 160 lb 3.2 oz Most Recent Monitor Data Heart Rate from ECG 89 NIBP 171/89 NIBP BP-Mean 116 Respiration from ECG 34 SpO2 94 I&O: 08/29/20 08/30/20 08/31/20 06:59 06:59 06:59 Intake Total 2436.4 1857.5 Output Total 1640 3215 650 Balance 796.4 -1357.5 -650 Result Diagrams: 08/30/20 08:45 08/30/20 08:45 Additional Labs: Accuchecks 08/30/20 08/30/20 08/30/20 11:22 08:17 06:24 POC Glucose 143 H 119 H 113 H 08/29/20 08/29/20 08/29/20 21:29 16:11 11:41 POC Glucose 145 H 171 H 122 H Hospitalist ROS - Medication Medications: Active Medications Generic Name Dose Route Start Last Admin Trade Name Freq PRN Reason Stop Dose Admin Albuterol Sulfate 2 puff 08/22/20 15:00 08/30/20 11:25 Albuterol 200 Puff (6.7gm Inhaler) INH 2 puff [id number] SHREYAS Administration Apixaban 5 mg 08/29/20 21:00 08/30/20 08:34 Apixaban 5 Mg Tab PO Not Given BID SHREYAS Ascorbic Acid 1,000 mg 08/23/20 09:00 08/30/20 08:34 Ascorbic Acid 500 Mg Chewable Tablet PO Not Given DAILY SHREYAS Benzonatate 100 mg 08/22/20 11:42 08/24/20 19:15 Benzonatate 100 Mg Cap PO 100 mg TIDPRN PRN Administration Cough Finasteride 5 mg 08/26/20 09:00 08/30/20 08:35 Finasteride 5 Mg Tab PO Not Given DAILY SHREYAS Guaifenesin/Dextromethorphan 15 ml 08/22/20 11:36 08/24/20 21:30 Guaifenesin Dm 100-10/5 Ml Udcup PO 15 ml Q4H PRN Administration Cough Sodium Chloride 1,000 mls @ 75 mls/hr 08/23/20 10:15 08/30/20 08:12 Normal Saline 0.9% IV 1,000 mls .[id number] SHREYAS Administration Ceftriaxone Sodium 2 gm/ 100 mls @ 200 mls/hr 08/25/20 17:00 08/29/20 22:41 Sodium Chloride IVPB 100 mls 1700 SHREYAS Administration Insulin Human Lispro 0 units 08/23/20 10:04 08/25/20 15:50 Humalog 300 Units/3 Ml Vial SC 2 unit .MILD SLIDING SCALE PRN Administration Mild Correctional Scale Insulin Human Lispro 0 units 08/23/20 10:04 08/24/20 19:15 Humalog 300 Units/3 Ml Vial SC 2 unit .BEDTIME SLIDING SC PRN Administration Bedtime Correctional Scale Metoprolol Tartrate 5 mg 08/30/20 12:27 08/30/20 14:31 Metoprolol Tartrate 5 Mg/5 Ml Vial IVP 5 mg Q6H PRN Administration sbp >180 or pulse >110/min Nitroglycerin 1 inch 08/29/20 18:06 08/30/20 08:12 Nitroglycerin 2% Ointment 1 Inch/1 Gm Packet TOP 1 inch Q8H PRN Administration sbp >180 Pantoprazole Sodium 40 mg 08/30/20 09:00 08/30/20 08:12 Pantoprazole 40 Mg Vial IVP 40 mg DAILY SHREYAS Administration Scopolamine 1.5 mg 08/30/20 11:00 08/30/20 11:16 Scopolamine 1.5 Mg/72 Hour Patch TD 1.5 mg Q3D SHREYAS Administration Tamsulosin HCl 0.4 mg 08/25/20 21:00 08/29/20 21:53 Tamsulosin Hcl 0.4 Mg Cap PO Not Given HS SHREYAS Throat Lozenges 1 nloan 08/24/20 21:43 08/24/20 23:20 Cepastat Lozenges 1 Nolan PO 1 nolan Q2H PRN Administration Sore Throat Zinc Sulfate 220 mg 08/23/20 09:00 08/30/20 08:35 Zinc Sulfate 220 Mg Cap PO Not Given DAILY SHREYAS Hospitalist Exam Vitals: Vital Signs (12 hours) Temp Pulse Ox 08/30/20 12:00 97.6 F 08/30/20 08:00 98.5 F 99 08/30/20 07:19 98 08/30/20 04:00 99.6 F Weight Admit Weight 160 lb 3.2 oz Weight 160 lb 3.2 oz Most Recent Monitor Data Heart Rate from ECG 89 NIBP 171/89 NIBP BP-Mean 116 Respiration from ECG 34 SpO2 94 General Appearance: ill appearing Eye: PERRL, anicteric sclera ENT: no oropharyngeal lesions, dry oral mucosa Neck: supple, no JVD Heart: RRR, no murmur Respiratory: no wheezes, rales, rhonchi Gastrointestinal: soft, non-tender, non-distended, normal bowel sounds Extremities: no cyanosis, no edema Neurological: cranial nerve grossly intact, no focal deficits Hosp A/P (1) Pneumonia due to COVID-19 virus Code(s): U07.1 - COVID-19; J12.82 - PNEUMONIA DUE TO CORONAVIRUS DISEASE 2019 Status: Acute (2) Acute respiratory failure with hypoxia Code(s): J96.01 - ACUTE RESPIRATORY FAILURE WITH HYPOXIA Status: Acute (3) DM type 2 (diabetes mellitus, type 2) Status: Chronic Qualifiers: Diabetes mellitus custodial insulin 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 Diabetes mellitus complication status: with hyperglycemia Qualified Code(s): E11.65 - Type 2 diabetes mellitus with hyperglycemia (4) HTN (hypertension) Code(s): I10 - ESSENTIAL (PRIMARY) HYPERTENSION Status: Chronic Qualifiers: Hypertension type: essential hypertension Qualified Code(s): I10 - Essential (primary) hypertension (5) BPH (benign prostatic hyperplasia) Code(s): N40.0 - BENIGN PROSTATIC HYPERPLASIA WITHOUT LOWER URINRY TRACT SYMP Status: Chronic Qualifiers: Lower urinary tract symptom presence: symptoms present (6) Hypothyroidism Code(s): E03.9 - HYPOTHYROIDISM, UNSPECIFIED Status: Chronic Qualifiers: Hypothyroidism type: acquired Qualified Code(s): E03.9 - Hypothyroidism, unspecified - Plan is obtunded this am, is currently maintaining airway, needs close monitoring, he apparently got agitated overnight and was pulling at everything. is on albuterol inh, dexamethasone, finished full course of remdesivir. got intubated 08/25 and extubated on08/29, has extensive infiltrates on cxr, spo2 of 94%. d/w friend and POA Ms.Kubena Mcclain, gave full updates 08/25, 08/26, unable to reach her on 08/27 x2, spoke to her and updated on 08/28, 08/29, 08/30 (is aware that he is obtunded with grim prognosis and possible reintubation if he fails to maintain airway). prognosis guarded with risk of reintubation if he fails to maintain airway, needs freq suction due to increased secretions, is on scopalamine tts as well.
[2020-08-30] MEDS: cefTRIAXone\\ROCEPHIN 2 GM in Sodium Chloride 0.9% 100 ML IVPB SCH (17:25)
[2020-08-30] MEDS ORDERED: Haloperidol Lactate 5 MG/ML VIAL SLOW IVP SCH ×2 (19:00→21:30)
--- NOTE | 2020-08-30 20:34 | PRG ---
DATE OF SERVICE: 08/30/2020 SUBJECTIVE: Demetrio Greenberg remains hemodynamically stable. He is coughing while I was in the room and he has an excellent cough. He still has significant secretion issues, so scopolamine patch has been started. OBJECTIVE: VITAL SIGNS: Blood pressure is 174/100, heart rates in the 70s, and respiratory rates in the 20s. LUNGS: Remarkable for coarse equal breath sounds. HEART: Regular rhythm. ABDOMEN: Soft. LABORATORY DATA: White count 14.1, hemoglobin 14.6, platelets 233. Sodium 134, potassium 3.7, chloride 97, bicarb 25, BUN 14, and creatinine 0.7. IMPRESSION: 1. Status post mechanical ventilation for COVID pneumonia. 2. Encephalopathy, which is not surprising with COVID. We will continue to follow. He still needs to remain in the critical care unit in my opinion. Job ID: [id number] MTDD
[2020-08-30] MEDS: Tamsulosin HCl 0.4 MG CAP PO SCH (20:55)
[2020-08-30] MEDS ORDERED: diphenhydrAMINE 50 MG/ML VIAL IVP SCH (21:00)
[2020-08-30] MEDS ORDERED: Metoprolol Tartrate 5 MG/5 ML VIAL IVP SCH (23:45)
[2020-08-31 05:05] LABS: #Lymphocytes 0.6 thou/uL (1.20-3.40); #Monocytes 0.4 thou/uL (0.11-0.59); #Neutrophils 12.7 thou/uL (1.40-6.50); %Basophils 0.1 % (0.0-1.0); %Eosinophils 0.2 % (0.0-10.0); %Lymphocytes 4.4 % (21.0-51.0); %Monocytes 2.9 % (0.0-10.0); %Neutrophils 92.5 % (42.0-75.0); Hemoglobin 13.8 g/dL (14.0-18.0); Mean Corpuscular HGB CONC 33.4 g/dL (32.0-36.0); Mean Corpuscular Hemoglobin 31.2 pg (27.0-31.0); Mean Corpuscular Volume 93.6 fL (78.0-98.0); Mean Platelet Volume 8.2 fL (7.4-10.4); Platelet Count 227 thou/uL (130-400); Red Blood Cell (RBC) Count 4.43 mill/uL (4.70-6.10); White Blood Cell (WBC) Count 13.7 thou/uL (4.8-10.8)
[2020-08-31 05:53] LABS: Anion Gap 13 mmol/L (10-20); BUN (Urea Nitrogen) 13 mg/dL (8.4-25.7); Calc. Creatinine Clearance 124 mL/min (70-130); Calcium 7.9 mg/dL (7.8-10.44); Carbon Dioxide 28 mmol/L (23-31); Chloride 96 mmol/L (98-107); Glucose 89 mg/dL (80-115); Potassium 3.5 mmol/L (3.5-5.1); Sodium 133 mmol/L (136-145)
[2020-08-31] MEDS: Albuterol 200 PUFF (6.7GM INHALER) INH SCH ×5 (08:18→18:07)
[2020-08-31] MEDS ORDERED: Dexamethasone 4 mg/ml Vial SLOW IVP SCH (09:00)
[2020-08-31] MEDS: Pantoprazole 40 MG VIAL IVP SCH (09:07)
[2020-08-31] MEDS: Apixaban 5 MG TAB PO SCH (09:08)
[2020-08-31] MEDS: Ascorbic Acid 500 mg Chewable Tablet PO SCH (09:08)
[2020-08-31] MEDS: Finasteride 5 MG TAB PO SCH (09:08)
[2020-08-31] MEDS: Zinc Sulfate 220 MG CAP PO SCH (09:08)
--- NOTE | 2020-08-31 09:39 | PRG ---
DATE OF SERVICE: 08/31/2020 SUBJECTIVE: The patient is on nasal cannula. He is really in no respiratory distress, but continues to be encephalopathic. OBJECTIVE: VITAL SIGNS: Temperature 98.3, pulse 92, blood pressure 173/120. 24-hour intake 1857, output 3215. HEENT: Unremarkable. NECK: No adenopathy or JVD. LUNGS: Clear. CARDIAC: S1 and S2. Regular. ABDOMEN: Soft. EXTREMITIES: No edema. LABORATORY DATA: White blood cell count 13.7, hematocrit 41.5, and platelet count 227. Sodium 133, potassium 3.5, chloride 96, CO2 of 28, BUN 13, creatinine 0.5, glucose 89. ASSESSMENT: 1. COVID-19 pneumonia. 2. Status post acute respiratory failure requiring mechanical ventilation. 3. Encephalopathy. PLAN: He could probably go to the floor with a sitter if a bed is needed. The main thing is I am giving him antipsychotics as needed for breakthrough agitation. One thing that might help is to reduce his steroid dose - I will cut the current dose in half. Job ID: [id number]
[2020-08-31] MEDS: Metoprolol Tartrate 5 MG/5 ML VIAL IVP PRN (11:32)
--- NOTE | 2020-08-31 16:16 | PDOC.HOSPP ---
- Subjective Encounter Date: 08/31/20 Encounter Time: 08:00 Subjective: awakens easily, follows verbal stimuli and moves all extremities, has mittens on him maintaining airway and is on nasal canula - Objective Vital Signs & Weight: Vital Signs (12 hours) Temp Pulse Ox 08/31/20 16:00 97.6 F 08/31/20 15:02 100 08/31/20 12:00 97.9 F 08/31/20 10:52 98 08/31/20 08:17 94 L 08/31/20 08:00 98.8 F 98 Weight Admit Weight 160 lb 3.2 oz Weight 160 lb 3.2 oz Most Recent Monitor Data Heart Rate from ECG 67 NIBP 154/85 NIBP BP-Mean 108 Respiration from ECG 19 SpO2 100 I&O: 08/30/20 08/31/20 09/01/20 06:59 06:59 06:59 Intake Total 1857.5 2275 Output Total 3215 2705 1350 Balance -1357.5 -430 -1350 Result Diagrams: 08/31/20 03:50 08/31/20 03:50 Additional Labs: Accuchecks 08/31/20 08/30/20 08/30/20 05:48 21:03 15:06 POC Glucose 91 111 H 146 H Hospitalist ROS - Medication Medications: Active Medications Generic Name Dose Route Start Last Admin Trade Name Freq PRN Reason Stop Dose Admin Albuterol Sulfate 2 puff 08/22/20 15:00 08/31/20 15:02 Albuterol 200 Puff (6.7gm Inhaler) INH 2 puff [id number] SHREYAS Administration Ascorbic Acid 1,000 mg 08/23/20 09:00 08/31/20 09:08 Ascorbic Acid 500 Mg Chewable Tablet PO Not Given DAILY SHREYAS Benzonatate 100 mg 08/22/20 11:42 08/24/20 19:15 Benzonatate 100 Mg Cap PO 100 mg TIDPRN PRN Administration Cough Finasteride 5 mg 08/26/20 09:00 08/31/20 09:08 Finasteride 5 Mg Tab PO Not Given DAILY SHREYAS Guaifenesin/Dextromethorphan 15 ml 08/22/20 11:36 08/24/20 21:30 Guaifenesin Dm 100-10/5 Ml Udcup PO 15 ml Q4H PRN Administration Cough Sodium Chloride 1,000 mls @ 75 mls/hr 08/23/20 10:15 08/30/20 20:55 Normal Saline 0.9% IV 1,000 mls .[id number] SHREYAS Administration Ceftriaxone Sodium 2 gm/ 100 mls @ 200 mls/hr 08/25/20 17:00 08/30/20 17:25 Sodium Chloride IVPB 100 mls 1700 SHREYAS Administration Insulin Human Lispro 0 units 08/23/20 10:04 08/25/20 15:50 Humalog 300 Units/3 Ml Vial SC 2 unit .MILD SLIDING SCALE PRN Administration Mild Correctional Scale Insulin Human Lispro 0 units 08/23/20 10:04 08/24/20 19:15 Humalog 300 Units/3 Ml Vial SC 2 unit .BEDTIME SLIDING SC PRN Administration Bedtime Correctional Scale Metoprolol Tartrate 5 mg 08/30/20 12:27 08/31/20 11:32 Metoprolol Tartrate 5 Mg/5 Ml Vial IVP 5 mg Q6H PRN Administration sbp >180 or pulse >110/min Nitroglycerin 1 inch 08/29/20 18:06 08/30/20 18:44 Nitroglycerin 2% Ointment 1 Inch/1 Gm Packet TOP 1 inch Q8H PRN Administration sbp >180 Pantoprazole Sodium 40 mg 08/30/20 09:00 08/31/20 09:07 Pantoprazole 40 Mg Vial IVP 40 mg DAILY SHREYAS Administration Scopolamine 1.5 mg 08/30/20 11:00 08/30/20 11:16 Scopolamine 1.5 Mg/72 Hour Patch TD 1.5 mg Q3D SHREYAS Administration Tamsulosin HCl 0.4 mg 08/25/20 21:00 08/30/20 20:55 Tamsulosin Hcl 0.4 Mg Cap PO Not Given HS SHREYAS Throat Lozenges 1 nolan 08/24/20 21:43 08/24/20 23:20 Cepastat Lozenges 1 Nolan PO 1 nolan Q2H PRN Administration Sore Throat Zinc Sulfate 220 mg 08/23/20 09:00 08/31/20 09:08 Zinc Sulfate 220 Mg Cap PO Not Given DAILY [facility] Hospitalist Exam Vitals: Vital Signs (12 hours) Temp Pulse Ox 08/31/20 16:00 97.6 F 08/31/20 15:02 100 08/31/20 12:00 97.9 F 08/31/20 10:52 98 08/31/20 08:17 94 L 08/31/20 08:00 98.8 F 98 Weight Admit Weight 160 lb 3.2 oz Weight 160 lb 3.2 oz Most Recent Monitor Data Heart Rate from ECG 67 NIBP 154/85 NIBP BP-Mean 108 Respiration from ECG 19 SpO2 100 Eye: PERRL, anicteric sclera ENT: no oropharyngeal lesions, dry oral mucosa Neck: supple, no JVD Heart: RRR, no murmur Respiratory: no wheezes, rales, rhonchi Gastrointestinal: soft, non-tender, non-distended, normal bowel sounds Extremities: no cyanosis, no edema Neurological: cranial nerve grossly intact, no focal deficits Hosp A/P (1) Pneumonia due to COVID-19 virus Code(s): U07.1 - COVID-19; J12.82 - PNEUMONIA DUE TO CORONAVIRUS DISEASE 2019 Status: Acute (2) Acute respiratory failure with hypoxia Code(s): J96.01 - ACUTE RESPIRATORY FAILURE WITH HYPOXIA Status: Acute (3) DM type 2 (diabetes mellitus, type 2) Status: Chronic Qualifiers: Diabetes mellitus penitentiary insulin use: without penitentiary use Diabetes mellitus complication status: with hyperglycemia Qualified Code(s): E11.65 - Type 2 diabetes mellitus with hyperglycemia (4) HTN (hypertension) Code(s): I10 - ESSENTIAL (PRIMARY) HYPERTENSION Status: Chronic Qualifiers: Hypertension type: essential hypertension Qualified Code(s): I10 - Essentia l (primary) hypertension (5) BPH (benign prostatic hyperplasia) Code(s): N40.0 - BENIGN PROSTATIC HYPERPLASIA WITHOUT LOWER URINRY TRACT SYMP Status: Chronic Qualifiers: Lower urinary tract symptom presence: symptoms present (6) Hypothyroidism Code(s): E03.9 - HYPOTHYROIDISM, UNSPECIFIED Status: Chronic Qualifiers: Hypothyroidism type: acquired Qualified Code(s): E03.9 - Hypothyroidism, unspecified - Plan has encephalopathy which is slowly clearing, may give ice chips if he asks for it. is on albuterol inh, dexamethasone, finished full course of remdesivir. got intubated 08/25 and extubated on08/29, has extensive infiltrates on cxr, curr ently stable on nasal canula. d/w friend and POA Ms.Kubena Mcclain, gave full updates 08/25, 08/26, unable to reach her on 08/27 x2, spoke to her and updated on 08/28, 08/29, 08/30 (is aware that he is obtunded with grim prognosis and possible reintubation if he fails to maintain airway). prognosis guarded, needs freq suction due to increased secretions, is on scopalamine tts as well. start ice chips from today, hopefully he will have something to drink from tomorrow if speech clears him.
[2020-08-31] MEDS: cefTRIAXone\\ROCEPHIN 2 GM in Sodium Chloride 0.9% 100 ML IVPB SCH (18:05)
[2020-08-31] MEDS: Sodium Chloride 0.9% 1,000 ML IV SCH (18:06)
[2020-08-31] MEDS: Enoxaparin Sodium 40 MG/0.4 ML SYRINGE SC SCH (20:25)
[2020-08-31] MEDS: guaiFENesin/DM ER PO SCH (20:37)
[2020-08-31] MEDS: Tamsulosin HCl 0.4 MG CAP PO SCH (20:37)
[2020-09-01] MEDS: Metoprolol Tartrate 5 MG/5 ML VIAL IVP PRN (00:53)
[2020-09-01] MEDS: Nitroglycerin 2% Ointment 1 INCH/1 GM Packet TOP PRN (03:07)
[2020-09-01] MEDS ORDERED: hydrALAZINE 20 MG/ML VIAL SLOW IVP SCH (04:15)
[2020-09-01] MEDS: Sodium Chloride 0.9% 1,000 ML IV SCH ×2 (04:21→16:55)
[2020-09-01 08:01] LABS: Anion Gap 16 mmol/L (10-20); BUN (Urea Nitrogen) 18 mg/dL (8.4-25.7); CRP (Inflammatory) 8.39 mg/dL (= or < 0.5); Calc. Creatinine Clearance 122 mL/min (70-130); Calcium 7.9 mg/dL (7.8-10.44); Carbon Dioxide 22 mmol/L (23-31); Chloride 103 mmol/L (98-107); Glucose 112 mg/dL (80-115); Potassium 4.2 mmol/L (3.5-5.1); Sodium 137 mmol/L (136-145)
[2020-09-01] MEDS: Albuterol 200 PUFF (6.7GM INHALER) INH SCH ×4 (08:21→20:48)
[2020-09-01] MEDS: Ascorbic Acid 500 mg Chewable Tablet PO SCH (08:21)
[2020-09-01] MEDS: Enoxaparin Sodium 40 MG/0.4 ML SYRINGE SC SCH ×2 (08:21→20:48)
[2020-09-01] MEDS: guaiFENesin/DM ER PO SCH ×2 (08:22→20:49)
[2020-09-01] MEDS: Pantoprazole 40 MG VIAL IVP SCH (08:22)
[2020-09-01] MEDS: Dexamethasone 4 mg/ml Vial SLOW IVP SCH (08:22)
[2020-09-01] MEDS: Finasteride 5 MG TAB PO SCH (08:22)
[2020-09-01] MEDS: Zinc Sulfate 220 MG CAP PO SCH (08:22)
--- NOTE | 2020-09-01 14:20 | PDOC.HOSPP ---
- Subjective Encounter Date: 09/01/20 Encounter Time: 11:20 Subjective: awake, oriented well, moves all extremities wants to eat and is hungry - Objective Vital Signs & Weight: Vital Signs (12 hours) Temp Pulse Resp BP BP Pulse Ox 09/01/20 11:50 95.5 F L 70 17 173/93 H 100 09/01/20 08:50 97.5 F L 87 20 155/87 H 99 09/01/20 06:00 97.6 F 78 18 176/87 H 94 L 09/01/20 05:00 97.9 F 69 18 179/89 H 95 09/01/20 04:17 75 195/95 H 09/01/20 04:00 97.6 F 69 18 179/87 H 95 Weight Admit Weight 160 lb 3.2 oz Weight 160 lb 3.2 oz Most Recent Monitor Data Heart Rate from ECG 70 NIBP 158/91 NIBP BP-Mean 113 Respiration from ECG 25 SpO2 99 I&O: 08/31/20 09/01/20 09/02/20 06:59 06:59 06:59 Intake Total 2275 0 Output Total 2705 1350 1000 Balance -430 -1350 -1000 Result Diagrams: 08/31/20 03:50 09/01/20 07:38 Additional Labs: Accuchecks 09/01/20 08/31/20 11:48 21:32 POC Glucose 113 H 128 H Hospitalist ROS - Medication Medications: Active Medications Generic Name Dose Route Start Last Admin Trade Name Freq PRN Reason Stop Dose Admin Albuterol Sulfate 2 puff 08/22/20 15:00 09/01/20 10:58 Albuterol 200 Puff (6.7gm Inhaler) INH 2 puff [id number] SHREYAS Administration Ascorbic Acid 1,000 mg 08/23/20 09:00 09/01/20 08:21 Ascorbic Acid 500 Mg Chewable Tablet PO Not Given DAILY SHREYAS Benzonatate 100 mg 08/22/20 11:42 08/24/20 19:15 Benzonatate 100 Mg Cap PO 100 mg TIDPRN PRN Administration Cough Dexamethasone 3 mg 09/01/20 09:00 09/01/20 08:22 Dexamethasone 4 Mg/Ml Vial SLOW IVP 3 mg DAILY SHREYAS Administration Enoxaparin Sodium 40 mg 08/31/20 21:00 09/01/20 08:21 Enoxaparin Sodium 40 Mg/0.4 Ml Syringe SC 40 mg 0900,2100 SHREYAS Administration Finasteride 5 mg 08/26/20 09:00 09/01/20 08:22 Finasteride 5 Mg Tab PO Not Given DAILY SHREYAS Guaifenesin/Dextromethorphan 15 ml 08/22/20 11:36 08/24/20 21:30 Guaifenesin Dm 100-10/5 Ml Udcup PO 15 ml Q4H PRN Administration Cough Guaifenesin/Dextromethorphan 1 tab 08/31/20 21:00 09/01/20 08:22 Guaifenesin/Dm Er PO Not Given Q12HR SHREYAS Sodium Chloride 1,000 mls @ 75 mls/hr 08/23/20 10:15 09/01/20 04:21 Normal Saline 0.9% IV 1,000 mls .[id number] SHREYAS Administration Ceftriaxone Sodium 2 gm/ 100 mls @ 200 mls/hr 08/25/20 17:00 08/31/20 18:05 Sodium Chloride IVPB 100 mls 1700 SHREYAS Administration Insulin Human Lispro 0 units 08/23/20 10:04 08/25/20 15:50 Humalog 300 Units/3 Ml Vial SC 2 unit .MILD SLIDING SCALE PRN Administration Mild Correctional Scale Insulin Human Lispro 0 units 08/23/20 10:04 08/24/20 19:15 Humalog 300 Units/3 Ml Vial SC 2 unit .BEDTIME SLIDING SC PRN Administration Bedtime Correctional Scale Metoprolol Tartrate 5 mg 08/30/20 12:27 09/01/20 00:53 Metoprolol Tartrate 5 Mg/5 Ml Vial IVP 5 mg Q6H PRN Administration sbp >180 or pulse >110/min Nitroglycerin 1 inch 08/29/20 18:06 09/01/20 03:07 Nitroglycerin 2% Ointment 1 Inch/1 Gm Packet TOP 1 inch Q8H PRN Administration sbp >180 Pantoprazole Sodium 40 mg 08/30/20 09:00 09/01/20 08:22 Pantoprazole 40 Mg Vial IVP 40 mg DAILY SHREYAS Administration Scopolamine 1.5 mg 08/30/20 11:00 08/30/20 11:16 Scopolamine 1.5 Mg/72 Hour Patch TD 1.5 mg Q3D SHREYAS Administration Tamsulosin HCl 0.4 mg 08/25/20 21:00 08/31/20 20:37 Tamsulosin Hcl 0.4 Mg Cap PO Not Given HS SHREYAS Throat Lozenges 1 nolan 08/24/20 21:43 08/24/20 23:20 Cepastat Lozenges 1 Nolan PO 1 nolan Q2H PRN Administration Sore Throat Zinc Sulfate 220 mg 08/23/20 09:00 09/01/20 08:22 Zinc Sulfate 220 Mg Cap PO Not Given DAILY SHREYAS Hospitalist Exam Vitals: Vital Signs (12 hours) Temp Pulse Resp BP BP Pulse Ox 09/01/20 11:50 95.5 F L 70 17 173/93 H 100 09/01/20 08:50 97.5 F L 87 20 155/87 H 99 09/01/20 06:00 97.6 F 78 18 176/87 H 94 L 09/01/20 05:00 97.9 F 69 18 179/89 H 95 09/01/20 04:17 75 195/95 H 09/01/20 04:00 97.6 F 69 18 179/87 H 95 Weight Admit Weight 160 lb 3.2 oz Weight 160 lb 3.2 oz Most Recent Monitor Data Heart Rate from ECG 70 NIBP 158/91 NIBP BP-Mean 113 Respiration from ECG 25 SpO2 99 General Appearance: awake alert Eye: PERRL, anicteric sclera ENT: no oropharyngeal lesions, dry oral mucosa Neck: supple, no JVD Heart: RRR, no murmur Respiratory: no wheezes, rales, rhonchi Gastrointestinal: soft, non-tender, non-distended, normal bowel sounds Extremities: no cyanosis, no edema Neurological: cranial nerve grossly intact, no focal deficits Psychiatric: A&O x 3 Hosp A/P (1) Pneumonia due to COVID-19 virus Code(s): U07.1 - COVID-19; J12.82 - PNEUMONIA DUE TO CORONAVIRUS DISEASE 2019 Status: Acute (2) Acute respiratory failure with hypoxia Code(s): J96.01 - ACUTE RESPIRATORY FAILURE WITH HYPOXIA Status: Acute (3) DM type 2 (diabetes mellitus, type 2) Status: Chronic Qualifiers: Diabetes mellitus senior living insulin use: without senior living use Diabetes mellitus complication status: with hyperglycemia Qualified Code(s): E11.65 - Type 2 diabetes mellitus with hyperglycemia (4) HTN (hypertension) Code(s): I10 - ESSENTIAL (PRIMARY) HYPERTENSION Status: Chronic Qualifiers: Hypertension type: essential hypertension Qualified Code(s): I10 - Essential (primary) hypertension (5) BPH (benign prostatic hyperplasia) Code(s): N40.0 - BENIGN PROSTATIC HYPERPLASIA WITHOUT LOWER URINRY TRACT SYMP Status: Chronic Qualifiers: Lower urinary tract symptom presence: symptoms present (6) Hypothyroidism Code(s): E03.9 - HYPOTHYROIDISM, UNSPECIFIED Status: Chronic Qualifiers: Hypothyroidism type: acquired Qualified Code(s): E03.9 - Hypothyroidism, unspecified - Plan is oriented well this morining, strength is good in all extremities speech therapist has to advance diet, I think he should be good for solid diet today. is on albuterol inh, dexamethasone, finished full course of remdesivir. got intubated 08/25 and extubated on08/29, has extensive infiltrates on cxr, currently stable on nasal canula. d/w friend and POA Ms.Kubena Mcclain, gave full updates 08/25, 08/26, unable to reach her on 08/27 x2, spoke to her and updated on 08/28, 08/29, 08/30, unable to reach today. ambulate as tolerated. is recovering very well post covid intubation/extubation
--- NOTE | 2020-09-01 16:27 | PRG ---
DATE OF SERVICE: 09/01/2020 SUBJECTIVE: He is doing well. His O2 saturation is 100% on nasal cannula. OBJECTIVE: VITAL SIGNS: Temperature 95.5, pulse 70, blood pressure 173/93. His exam is unchanged. LABORATORY DATA: Labs demonstrate BUN 18, creatinine 0.5, sodium 137. ASSESSMENT: COVID-19 pneumonia-recovering well. PLAN: The patient is on anticoagulation with enoxaparin and tapered Decadron. He is probably approaching time for rehab. Dr. Doyle will see the patient on Thursday. Job ID: [id number]
[2020-09-01] MEDS: cefTRIAXone\\ROCEPHIN 2 GM in Sodium Chloride 0.9% 100 ML IVPB SCH (16:55)
[2020-09-01] MEDS: Tamsulosin HCl 0.4 MG CAP PO SCH (20:49)
[2020-09-02] MEDS: Metoprolol Tartrate 5 MG/5 ML VIAL IVP PRN (02:34)
[2020-09-02 06:17] LABS: Anion Gap 15 mmol/L (10-20); BUN (Urea Nitrogen) 17 mg/dL (8.4-25.7); Calc. Creatinine Clearance 118 mL/min (70-130); Calcium 7.9 mg/dL (7.8-10.44); Carbon Dioxide 25 mmol/L (23-31); Chloride 102 mmol/L (98-107); Glucose 100 mg/dL (80-115); Potassium 3.7 mmol/L (3.5-5.1); Sodium 138 mmol/L (136-145)
[2020-09-02] MEDS: Albuterol 200 PUFF (6.7GM INHALER) INH SCH ×4 (10:10→21:19)
[2020-09-02] MEDS: Pantoprazole 40 MG VIAL IVP SCH (10:11)
[2020-09-02] MEDS: Sodium Chloride 0.9% 1,000 ML IV SCH ×2 (10:11→21:20)
[2020-09-02] MEDS: Dexamethasone 4 mg/ml Vial SLOW IVP SCH (10:11)
[2020-09-02] MEDS: Scopolamine 1.5 mg/72 hour Patch TD SCH (10:12)
[2020-09-02] MEDS: Enoxaparin Sodium 40 MG/0.4 ML SYRINGE SC SCH (10:13)
[2020-09-02] MEDS: Ascorbic Acid 500 mg Chewable Tablet PO SCH (12:55)
[2020-09-02] MEDS: Zinc Sulfate 220 MG CAP PO SCH (12:55)
[2020-09-02] MEDS: guaiFENesin/DM ER PO SCH ×2 (12:55→21:07)
[2020-09-02] MEDS: Finasteride 5 MG TAB PO SCH (12:55)
--- NOTE | 2020-09-02 13:28 | PDOC.HOSPP ---
- Subjective Encounter Date: 09/02/20 Encounter Time: 08:15 Subjective: is angry that staff are not giving him oral diet and not allowing him to get up with bed alarm. he wants to sign out if we dont feed him and allow him to walk is oriented well, has a bit of husky voice due to recent intubation. - Objective Vital Signs & Weight: Vital Signs (12 hours) Temp Pulse Resp BP Pulse Ox 09/02/20 12:20 97.6 F 93 18 148/91 H 91 L 09/02/20 10:30 97.7 F 94 18 133/81 96 09/02/20 09:30 93 194/91 H 09/02/20 06:00 97.8 F 85 18 172/94 H 95 09/02/20 04:00 98.8 F 66 18 184/99 H 99 Weight Admit Weight 160 lb 3.2 oz Weight 160 lb 3.2 oz Most Recent Monitor Data Heart Rate from ECG 70 NIBP 158/91 NIBP BP-Mean 113 Respiration from ECG 25 SpO2 99 I&O: 09/01/20 09/02/20 09/03/20 06:59 06:59 06:59 Intake Total 5 Output Total 1350 3300 Balance -1350 -3295 Result Diagrams: 08/31/20 03:50 09/02/20 05:40 Additional Labs: Accuchecks 09/02/20 09/02/20 09/01/20 11:00 06:38 21:00 POC Glucose 137 H 97 110 H 09/01/20 16:53 POC Glucose 129 H Hospitalist ROS - Medication Medications: Active Medications Generic Name Dose Route Start Last Admin Trade Name Freq PRN Reason Stop Dose Admin Albuterol Sulfate 2 puff 08/22/20 15:00 09/02/20 10:54 Albuterol 200 Puff (6.7gm Inhaler) INH 2 puff [id number] SHREYAS Administration Ascorbic Acid 1,000 mg 08/23/20 09:00 09/02/20 12:55 Ascorbic Acid 500 Mg Chewable Tablet PO Not Given DAILY SHREYAS Benzonatate 100 mg 08/22/20 11:42 08/24/20 19:15 Benzonatate 100 Mg Cap PO 100 mg TIDPRN PRN Administration Cough Dexamethasone 3 mg 09/01/20 09:00 09/02/20 10:11 Dexamethasone 4 Mg/Ml Vial SLOW IVP 3 mg DAILY SHREYAS Administration Enoxaparin Sodium 40 mg 08/31/20 21:00 09/02/20 10:13 Enoxaparin Sodium 40 Mg/0.4 Ml Syringe SC 40 mg 0900,2100 SHREYAS Administration Finasteride 5 mg 08/26/20 09:00 09/02/20 12:55 Finasteride 5 Mg Tab PO Not Given DAILY SHREYAS Guaifenesin/Dextromethorphan 15 ml 08/22/20 11:36 08/24/20 21:30 Guaifenesin Dm 100-10/5 Ml Udcup PO 15 ml Q4H PRN Administration Cough Guaifenesin/Dextromethorphan 1 tab 08/31/20 21:00 09/02/20 12:55 Guaifenesin/Dm Er PO Not Given Q12HR SHREYAS Sodium Chloride 1,000 mls @ 75 mls/hr 08/23/20 10:15 09/02/20 10:11 Normal Saline 0.9% IV 1,000 mls .[id number] SHREYAS Administration Ceftriaxone Sodium 2 gm/ 100 mls @ 200 mls/hr 08/25/20 17:00 09/01/20 16:55 Sodium Chloride IVPB 100 mls 1700 SHREYAS Administration Insulin Human Lispro 0 units 08/23/20 10:04 08/25/20 15:50 Humalog 300 Units/3 Ml Vial SC 2 unit .MILD SLIDING SCALE PRN Administration Mild Correctional Scale Insulin Human Lispro 0 units 08/23/20 10:04 08/24/20 19:15 Humalog 300 Units/3 Ml Vial SC 2 unit .BEDTIME SLIDING SC PRN Administration Bedtime Correctional Scale Metoprolol Tartrate 5 mg 08/30/20 12:27 09/02/20 02:34 Metoprolol Tartrate 5 Mg/5 Ml Vial IVP 5 mg Q6H PRN Administration sbp >180 or pulse >110/min Nitroglycerin 1 inch 08/29/20 18:06 09/01/20 03:07 Nitroglycerin 2% Ointment 1 Inch/1 Gm Packet TOP 1 inch Q8H PRN Administration sbp >180 Pantoprazole Sodium 40 mg 08/30/20 09:00 09/02/20 10:11 Pantoprazole 40 Mg Vial IVP 40 mg DAILY SHREYAS Administration Scopolamine 1.5 mg 08/30/20 11:00 09/02/20 10:12 Scopolamine 1.5 Mg/72 Hour Patch TD 1.5 mg Q3D SHREYAS Administration Tamsulosin HCl 0.4 mg 08/25/20 21:00 09/01/20 20:49 Tamsulosin Hcl 0.4 Mg Cap PO Not Given HS SHREYAS Throat Lozenges 1 nolan 08/24/20 21:43 08/24/20 23:20 Cepastat Lozenges 1 Nolan PO 1 nolan Q2H PRN Administration Sore Throat Zinc Sulfate 220 mg 08/23/20 09:00 09/02/20 12:55 Zinc Sulfate 220 Mg Cap PO Not Given DAILY SHREYAS Hospitalist Exam Vitals: Vital Signs (12 hours) Temp Pulse Resp BP Pulse Ox 09/02/20 12:20 97.6 F 93 18 148/91 H 91 L 09/02/20 10:30 97.7 F 94 18 133/81 96 09/02/20 09:30 93 194/91 H 09/02/20 06:00 97.8 F 85 18 172/94 H 95 09/02/20 04:00 98.8 F 66 18 184/99 H 99 Weight Admit Weight 160 lb 3.2 oz Weight 160 lb 3.2 oz Most Recent Monitor Data Heart Rate from ECG 70 NIBP 158/91 NIBP BP-Mean 113 Respiration from ECG 25 SpO2 99 General Appearance: awake alert Eye: PERRL, anicteric sclera ENT: no oropharyngeal lesions, dry oral mucosa Neck: supple, no JVD Heart: RRR, no murmur Respiratory: no wheezes, rhonchi Gastrointestinal: soft, non-tender, non-distended, normal bowel sounds Extremities: no cyanosis, no edema Neurological: cranial nerve grossly intact, no focal deficits Psychiatric: A&O x 3 Hosp A/P (1) Pneumonia due to COVID-19 virus Code(s): U07.1 - COVID-19; J12.82 - PNEUMONIA DUE TO CORONAVIRUS DISEASE 2019 Status: Acute (2) Acute respiratory failure with hypoxia Code(s): J96.01 - ACUTE RESPIRATORY FAILURE WITH HYPOXIA Status: Acute (3) DM type 2 (diabetes mellitus, type 2) Status: Chronic Qualifiers: Diabetes mellitus oysterman insulin use: without oysterman use Diabetes mellitus complication status: with hyperglycemia Qualified Code(s): E11.65 - Type 2 diabetes mellitus with hyperglycemia (4) HTN (hypertension) Code(s): I10 - ESSENTIAL (PRIMARY) HYPERTENSION Status: Chronic Qualifiers: Hypertension type: essential hypertension Qualified Code(s): I10 - Essential (primary) hypertension (5) BPH (benign prostatic hyperplasia) Code(s): N40.0 - BENIGN PROSTATIC HYPERPLASIA WITHOUT LOWER URINRY TRACT SYMP Status: Chronic Qualifiers: Lower urinary tract symptom presence: symptoms present (6) Hypothyroidism Code(s): E03.9 - HYPOTHYROIDISM, UNSPECIFIED Status: Chronic Qualifiers: Hypothyroidism type: acquired Qualified Code(s): E03.9 - Hypothyroidism, unspecified - Plan is oriented well and very angry that staff are not feeding him and not allowing him to mobilize with bed alarm on, strength is good in all extremities speech therapist has to advance diet, I think he should be good for oral diet, has not had any cva, was only intubated for 4 days. is on albuterol inh, dexamethasone, finished full course of remdesivir. got intubated 08/25 and extubated on08/29, has extensive infiltrates on cxr, currently stable on nasal canula. d/w friend and POA Ms.Kubena Mcclain, gave full updates 08/25, 08/26, unable to reac h her on 08/27 x2, spoke to her and updated on 08/28, 08/29, 08/30, unable to reach 09/01 and 09/02. ambulate as tolerated. is recovering very well post covid intubation/extubation. I think we are testing his patience regarding swallow and mobilization efforts and spooking his vitals out of order, I am not inclined to give him haldol unless he is a threat to himself or others as a last resort.
--- NOTE | 2020-09-02 15:34 | PRG ---
DATE OF SERVICE: 09/02/2020 Discussed the patient's condition with the nurses. He is having trouble swallowing, and I feel that the scopolamine patch may be causing his mouth to get too dry and inhibiting his swallowing. We have decided to hold that for the time being. I will go ahead and reduce his steroid dose a little further. Job ID: [id number]
[2020-09-02] MEDS: cefTRIAXone\\ROCEPHIN 2 GM in Sodium Chloride 0.9% 100 ML IVPB SCH (16:04)
--- NOTE | 2020-09-02 17:23 | CT ---
EXAM: CT brain without contrast HISTORY: Fall with laceration in the forehead and left COMPARISON: None TECHNIQUE: Multiple contiguous axial images were obtained and a CT of the brain without contrast. Sag ittal and coronal reformats were performed. FINDINGS: There are scattered hypodensities in the subcortical and periventricular white matter consi stent with small vessel ischemic disease. There is no evidence of hydrocephalus, intracranial hemorrhage, or extra-axial fluid collection. The calvarium and overlying soft tissues are unremarkable. Fluid is seen in the bilateral mastoid air cells. The visualized paranasal sinuses are well aerated. IMPRESSION: No evidence of acute intracranial abnormality
[2020-09-02] MEDS: Tamsulosin HCl 0.4 MG CAP PO SCH (21:07)
[2020-09-02] MEDS: diphenhydrAMINE 50 MG/ML VIAL IVP PRN (22:18)
[2020-09-03] MEDS ORDERED: diphenhydrAMINE 50 MG/ML VIAL IVP PRN (00:38)
[2020-09-03] MEDS ORDERED: OLANZapine 10 MG VIAL IM PRN (01:03)
[2020-09-03] MEDS ORDERED: Sterile Water 10 ML VIAL FS PRN (01:19)
[2020-09-03] MEDS: diphenhydrAMINE 50 MG/ML VIAL IVP PRN (02:34)
[2020-09-03] MEDS: Sodium Chloride 0.9% 1,000 ML IV SCH ×2 (05:45→20:42)
[2020-09-03 06:05] LABS: Bilirubin Negative (Negative); Blood, Urine Negative (Negative); Clarity Clear (Clear); Glucose, Urine (Dipstick) Normal (Negative); Ketone, Urine 40 mg/dL (Negative); Leukocyte 75 Leu/uL (Negative); Nitrite Negative (Negative); Protein, Urine (Dipstick) Negative (Neg-Trace); RBC/HPF 0-3 HPF (0-3); Specific Gravity, Urine 1.017 (1.002-1.036); Squamous Epithelial None Seen HPF (0-3); Urobilinogen Normal mg/dL (Less than 2); pH, Urine 5.5 (5.0-9.0)
[2020-09-03 06:08] LABS: Bacteria/HPF 1+ HPF (None Seen)
[2020-09-03] MEDS: Albuterol 200 PUFF (6.7GM INHALER) INH SCH ×4 (07:01→20:00)
[2020-09-03] MEDS: guaiFENesin/DM ER PO SCH ×2 (08:47→20:38)
[2020-09-03] MEDS: Finasteride 5 MG TAB PO SCH (08:47)
[2020-09-03] MEDS: Ascorbic Acid 500 mg Chewable Tablet PO SCH (08:47)
[2020-09-03] MEDS: Zinc Sulfate 220 MG CAP PO SCH (08:48)
[2020-09-03] MEDS: Enoxaparin Sodium 40 MG/0.4 ML SYRINGE SC SCH (08:50)
[2020-09-03] MEDS: Pantoprazole 40 MG VIAL IVP SCH (08:50)
[2020-09-03] MEDS: Dexamethasone 4 mg/ml Vial SLOW IVP SCH (08:51)
[2020-09-03] MEDS: HumaLOG 300 UNITS/3 ML VIAL SC PRN (16:21)
--- NOTE | 2020-09-03 16:53 | PRG ---
DATE OF SERVICE: 09/03/2020 OBJECTIVE: VITAL SIGNS: Mr. Greenberg's vital signs remained stable. He is afebrile. Heart rate is 102, respiratory rate is 20, oximetry is 95% on 2 L, blood pressure 159/97. LABORATORY DATA: He had a head CT ordered today that did not show anything. IMPRESSION: 1. Status post COVID pneumonia. 2. Swallowing dysfunction. 3. 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 4. Encephalopathy as expected after COVID. PLAN: Would be for placement. Job ID: [id number]
[2020-09-03] MEDS: cefTRIAXone\\ROCEPHIN 2 GM in Sodium Chloride 0.9% 100 ML IVPB SCH (17:00)
[2020-09-03] MEDS ORDERED: cefTRIAXone\\ROCEPHIN 2 GM VIAL ONE (17:03)
[2020-09-03] MEDS: Tamsulosin HCl 0.4 MG CAP PO SCH (20:38)
[2020-09-03] MEDS: Acetaminophen 325 MG TAB PO PRN (20:39)
[2020-09-03] MEDS: Melatonin 3 MG TAB PO PRN (20:42)
--- NOTE | 2020-09-04 09:20 | PRG ---
DATE OF SERVICE: 09/04/2020 SUBJECTIVE: The patient is awake, alert, seems a bit agitated. He is oriented, but still has some apparent confusion. OBJECTIVE: VITAL SIGNS: Temperature 98.4, blood pressure 138/82, pulse 88. ABDOMEN: Soft, nontender. No palpable masses. Liver and spleen not palpable. IMPRESSION: Mr. Greenberg was first seen by me on 08/25/2019, after he was transferred to the ICU and they were unable to place a Ferreira catheter. I placed a Ferreira catheter at that time with some difficulty secondary to either urethral stricture disease or bladder neck contracture. I was notified yesterday that his catheter "fell out." Apparently, the balloon had become deflated. They contacted me because he had not voided in approximately 8 hours and then shortly after contact me he voided. He was then transferred to the floor in the evening on 09/03/2020. I was again contacted this morning for the patient's inability to void. A bladder scan demonstrated 850 mL. Shortly after that phone call, I received another call stating that he voided 600 mL. RECOMMENDATIONS: I will leave a catheter out at this time. I will let Dr. Fields know this patient's status as he is likely to require intervention at some point for presumed urethral stricture or bladder neck contracture. I have made him n.p.o. in case Dr. Fields wants to proceed with any intervention today. Plan n.p.o. to possible intervention by cystoscopy and possible DVIU, transurethral incision of bladder neck. This decision will be left up to Dr. Ander Fields. Job ID: [id number]
[2020-09-04] MEDS: Finasteride 5 MG TAB PO SCH (09:40)
[2020-09-04] MEDS: Zinc Sulfate 220 MG CAP PO SCH (09:40)
[2020-09-04] MEDS: Ascorbic Acid 500 mg Chewable Tablet PO SCH (09:40)
[2020-09-04] MEDS: guaiFENesin/DM ER PO SCH ×2 (09:40→20:39)
[2020-09-04] MEDS: Dexamethasone 4 mg/ml Vial SLOW IVP SCH (09:41)
[2020-09-04] MEDS: Enoxaparin Sodium 40 MG/0.4 ML SYRINGE SC SCH (09:41)
[2020-09-04] MEDS: Pantoprazole 40 MG VIAL IVP SCH (09:41)
[2020-09-04] MEDS: Sodium Chloride 0.9% 1,000 ML IV SCH (09:42)
[2020-09-04] MEDS: Albuterol 200 PUFF (6.7GM INHALER) INH SCH ×4 (09:52→20:40)
--- NOTE | 2020-09-04 17:03 | PDOC.HOSPP ---
- Subjective Encounter Date: 09/03/20 Encounter Time: 10:15 Subjective: pt up in bed more awake - Objective Vital Signs & Weight: Vital Signs (12 hours) Temp Pulse Resp BP Pulse Ox 09/04/20 15:50 97.7 F 77 20 122/72 98 09/04/20 12:00 97.8 F 81 18 163/89 H 99 09/04/20 08:00 97.6 F 88 18 155/87 H 95 Weight Admit Weight 160 lb 3.2 oz Weight 160 lb 3.2 oz Most Recent Monitor Data Heart Rate from ECG 70 NIBP 158/91 NIBP BP-Mean 113 Respiration from ECG 25 SpO2 99 I&O: 09/03/20 09/04/20 09/05/20 06:59 06:59 06:59 Intake Total 1800 Output Total 1825 Balance -25 Result Diagrams: 08/31/20 03:50 09/02/20 05:40 Additional Labs: Accuchecks 09/04/20 09/04/20 09/03/20 11:30 03:58 20:41 POC Glucose 112 H 117 H 160 H Hospitalist ROS - Review of Systems Cardiovascular: denies: chest pain, palpitations, orthopnea, paroxysmal noc. dyspnea, edema, light headedness, other Gastrointestinal: denies: nausea, vomiting, abdominal pain, diarrhea, constipation, melena, hematochezia, other Genitourinary: denies: dysuria, frequency, incontinence, hematuria, retention, other - Medication Medications: Active Medications Generic Name Dose Route Start Last Admin Trade Name Freq PRN Reason Stop Dose Admin Acetaminophen 650 mg 08/22/20 11:36 09/03/20 20:39 Acetaminophen 325 Mg Tab PO 650 mg Q4H PRN Administration Headache/Fever/Mild Pain (1-3) Albuterol Sulfate 2 puff 08/22/20 15:00 09/04/20 15:51 Albuterol 200 Puff (6.7gm Inhaler) INH 2 puff [id number] SHREYAS Administration Ascorbic Acid 1,000 mg 08/23/20 09:00 09/04/20 09:40 Ascorbic Acid 500 Mg Chewable Tablet PO 1,000 mg DAILY SHREYAS Administration Benzonatate 100 mg 08/22/20 11:42 08/24/20 19:15 Benzonatate 100 Mg Cap PO 100 mg TIDPRN PRN Administration Cough Dexamethasone 2 mg 09/03/20 09:00 09/04/20 09:41 Dexamethasone 4 Mg/Ml Vial SLOW IVP 2 mg DAILY SHREYAS Administration Enoxaparin Sodium 40 mg 09/03/20 09:00 09/04/20 09:41 Enoxaparin Sodium 40 Mg/0.4 Ml Syringe SC 40 mg DAILY SHREYAS Administration Finasteride 5 mg 08/26/20 09:00 09/04/20 09:40 Finasteride 5 Mg Tab PO 5 mg DAILY SHREYAS Administration Guaifenesin/Dextromethorphan 15 ml 08/22/20 11:36 08/24/20 21:30 Guaifenesin Dm 100-10/5 Ml Udcup PO 15 ml Q4H PRN Administration Cough Guaifenesin/Dextromethorphan 1 tab 08/31/20 21:00 09/04/20 09:40 Guaifenesin/Dm Er PO 1 tab Q12HR SHREYAS Administration Sodium Chloride 1,000 mls @ 75 mls/hr 08/23/20 10:15 09/04/20 09:42 Normal Saline 0.9% IV 1,000 mls .[id number] SHREYAS Administration Ceftriaxone Sodium 2 gm/ 100 mls @ 200 mls/hr 08/25/20 17:00 09/03/20 17:00 Sodium Chloride IVPB 100 mls 1700 SHREYAS Administration Insulin Human Lispro 0 units 08/23/20 10:04 09/03/20 16:21 Humalog 300 Units/3 Ml Vial SC 2 unit .MILD SLIDING SCALE PRN Administration Mild Correctional Scale Insulin Human Lispro 0 units 08/23/20 10:04 08/24/20 19:15 Humalog 300 Units/3 Ml Vial SC 2 unit .BEDTIME SLIDING SC PRN Administration Bedtime Correctional Scale Melatonin 6 mg 09/02/20 23:59 09/03/20 20:42 Melatonin 3 Mg Tab PO 6 mg HSPRN PRN Administration Insomnia Metoprolol Tartrate 5 mg 08/30/20 12:27 09/02/20 02:34 Metoprolol Tartrate 5 Mg/5 Ml Vial IVP 5 mg Q6H PRN Administration sbp >180 or pulse >110/min Nitroglycerin 1 inch 08/29/20 18:06 09/01/20 03:07 Nitroglycerin 2% Ointment 1 Inch/1 Gm Packet TOP 1 inch Q8H PRN Administration sbp >180 Pantoprazole Sodium 40 mg 08/30/20 09:00 09/04/20 09:41 Pantoprazole 40 Mg Vial IVP 40 mg DAILY SHREYAS Administration Tamsulosin HCl 0.4 mg 08/25/20 21:00 09/03/20 20:38 Tamsulosin Hcl 0.4 Mg Cap PO 0.4 mg HS SHREYAS Administration Throat Lozenges 1 nolan 08/24/20 21:43 08/24/20 23:20 Cepastat Lozenges 1 Nolan PO 1 nolan Q2H PRN Administration Sore Throat Zinc Sulfate 220 mg 08/23/20 09:00 09/04/20 09:40 Zinc Sulfate 220 Mg Cap PO 220 mg DAILY SHREYAS Administration Hospitalist Exam Vitals: Vital Signs (12 hours) Temp Pulse Resp BP Pulse Ox 09/04/20 15:50 97.7 F 77 20 122/72 98 09/04/20 12:00 97.8 F 81 18 163/89 H 99 09/04/20 08:00 97.6 F 88 18 155/87 H 95 Weight Admit Weight 160 lb 3.2 oz Weight 160 lb 3.2 oz Most Recent Monitor Data Heart Rate from ECG 70 NIBP 158/91 NIBP BP-Mean 113 Respiration from ECG 25 SpO2 99 Neck: supple Heart: no murmur, no gallops Respiratory: no wheezes Gastrointestinal: soft, non-distended, normal bowel sounds Hosp A/P (1) Acute respiratory failure with hypoxia Code(s): J96.01 - ACUTE RESPIRATORY FAILURE WITH HYPOXIA Status: Acute (2) Pneumonia due to COVID-19 virus Code(s): U07.1 - COVID-19; J12.82 - PNEUMONIA DUE TO CORONAVIRUS DISEASE 2019 Status: Acute (3) BPH (benign prostatic hyperplasia) Code(s): N40.0 - BENIGN PROSTATIC HYPERPLASIA WITHOUT LOWER URINRY TRACT SYMP Status: Chronic Qualifiers: Lower urinary tract symptom presence: symptoms present (4) DM type 2 (diabetes mellitus, type 2) Status: Chronic Qualifiers: Diabetes mellitus care home insulin use: without care home use Diabetes mellitus complication status: with hyperglycemia Qualified Code(s): E11.65 - Type 2 diabetes mellitus with hyperglycemia (5) HTN (hypertension) Code(s): I10 - ESSENTIAL (PRIMARY) HYPERTENSION Status: Chronic Qualifiers: Hypertension type: essential hypertension Qualified Code(s): I10 - Essen tial (primary) hypertension (6) Hypothyroidism Code(s): E03.9 - HYPOTHYROIDISM, UNSPECIFIED Status: Chronic Qualifiers: Hypothyroidism type: acquired Qualified Code(s): E03.9 - Hypothyroidism, unspecified - Plan pt up in bed more awake. will start pt on diet. pt transfer pt to medical floor. pt on dvt ppx. abx stopped.
--- NOTE | 2020-09-04 17:17 | PDOC.HOSPP ---
- Subjective Encounter Date: 09/04/20 Encounter Time: 10:55 Subjective: pt up in bed no complains. He pulled out his bond last night. His bond was inserted by urology. - Objective Vital Signs & Weight: Vital Signs (12 hours) Temp Pulse Resp BP Pulse Ox 09/04/20 15:50 97.7 F 77 20 122/72 98 09/04/20 12:00 97.8 F 81 18 163/89 H 99 09/04/20 08:00 97.6 F 88 18 155/87 H 95 Weight Admit Weight 160 lb 3.2 oz Weight 160 lb 3.2 oz Most Recent Monitor Data Heart Rate from ECG 70 NIBP 158/91 NIBP BP-Mean 113 Respiration from ECG 25 SpO2 99 I&O: 09/03/20 09/04/20 09/05/20 06:59 06:59 06:59 Intake Total 1800 Output Total 1825 Balance -25 Result Diagrams: 08/31/20 03:50 09/02/20 05:40 Additional Labs: Accuchecks 09/04/20 09/04/20 09/04/20 16:49 11:30 03:58 POC Glucose 169 H 112 H 117 H 09/03/20 20:41 POC Glucose 160 H Hospitalist ROS - Review of Systems Cardiovascular: denies: chest pain, palpitations, orthopnea, paroxysmal noc. dyspnea, edema, light headedness, other Gastrointestinal: denies: nausea, vomiting, abdominal pain, diarrhea, constipation, melena, hematochezia, other Genitourinary: denies: dysuria, frequency, incontinence, hematuria, retention, other - Medication Medications: Active Medications Generic Name Dose Route Start Last Admin Trade Name Freq PRN Reason Stop Dose Admin Acetaminophen 650 mg 08/22/20 11:36 09/03/20 20:39 Acetaminophen 325 Mg Tab PO 650 mg Q4H PRN Administration Headache/Fever/Mild Pain (1-3) Albuterol Sulfate 2 puff 08/22/20 15:00 09/04/20 15:51 Albuterol 200 Puff (6.7gm Inhaler) INH 2 puff [id number] SHREYAS Administration Ascorbic Acid 1,000 mg 08/23/20 09:00 09/04/20 09:40 Ascorbic Acid 500 Mg Chewable Tablet PO 1,000 mg DAILY SHREYAS Administration Benzonatate 100 mg 08/22/20 11:42 08/24/20 19:15 Benzonatate 100 Mg Cap PO 100 mg TIDPRN PRN Administration Cough Dexamethasone 2 mg 09/03/20 09:00 09/04/20 09:41 Dexamethasone 4 Mg/Ml Vial SLOW IVP 2 mg DAILY SHREYAS Administration Enoxaparin Sodium 40 mg 09/03/20 09:00 09/04/20 09:41 Enoxaparin Sodium 40 Mg/0.4 Ml Syringe SC 40 mg DAILY SHREYAS Administration Finasteride 5 mg 08/26/20 09:00 09/04/20 09:40 Finasteride 5 Mg Tab PO 5 mg DAILY SHREYAS Administration Guaifenesin/Dextromethorphan 15 ml 08/22/20 11:36 08/24/20 21:30 Guaifenesin Dm 100-10/5 Ml Udcup PO 15 ml Q4H PRN Administration Cough Guaifenesin/Dextromethorphan 1 tab 08/31/20 21:00 09/04/20 09:40 Guaifenesin/Dm Er PO 1 tab Q12HR SHREYAS Administration Sodium Chloride 1,000 mls @ 75 mls/hr 08/23/20 10:15 09/04/20 09:42 Normal Saline 0.9% IV 1,000 mls .[id number] SHREYAS Administration Ceftriaxone Sodium 2 gm/ 100 mls @ 200 mls/hr 08/25/20 17:00 09/03/20 17:00 Sodium Chloride IVPB 100 mls 1700 SHREYAS Administration Insulin Human Lispro 0 units 08/23/20 10:04 09/03/20 16:21 Humalog 300 Units/3 Ml Vial SC 2 unit .MILD SLIDING SCALE PRN Administration Mild Correctional Scale Insulin Human Lispro 0 units 08/23/20 10:04 08/24/20 19:15 Humalog 300 Units/3 Ml Vial SC 2 unit .BEDTIME SLIDING SC PRN Administration Bedtime Correctional Scale Melatonin 6 mg 09/02/20 23:59 09/03/20 20:42 Melatonin 3 Mg Tab PO 6 mg HSPRN PRN Administration Insomnia Metoprolol Tartrate 5 mg 08/30/20 12:27 09/02/20 02:34 Metoprolol Tartrate 5 Mg/5 Ml Vial IVP 5 mg Q6H PRN Administration sbp >180 or pulse >110/min Nitroglycerin 1 inch 08/29/20 18:06 09/01/20 03:07 Nitroglycerin 2% Ointment 1 Inch/1 Gm Packet TOP 1 inch Q8H PRN Administration sbp >180 Pantoprazole Sodium 40 mg 08/30/20 09:00 09/04/20 09:41 Pantoprazole 40 Mg Vial IVP 40 mg DAILY SHREYAS Administration Tamsulosin HCl 0.4 mg 08/25/20 21:00 09/03/20 20:38 Tamsulosin Hcl 0.4 Mg Cap PO 0.4 mg HS SHREYAS Administration Throat Lozenges 1 nolan 08/24/20 21:43 08/24/20 23:20 Cepastat Lozenges 1 Nolan PO 1 nolan Q2H PRN Administration Sore Throat Zinc Sulfate 220 mg 08/23/20 09:00 09/04/20 09:40 Zinc Sulfate 220 Mg Cap PO 220 mg DAILY SHREYAS Administration Hospitalist Exam Vitals: Vital Signs (12 hours) Temp Pulse Resp BP Pulse Ox 09/04/20 15:50 97.7 F 77 20 122/72 98 09/04/20 12:00 97.8 F 81 18 163/89 H 99 09/04/20 08:00 97.6 F 88 18 155/87 H 95 Weight Admit Weight 160 lb 3.2 oz Weight 160 lb 3.2 oz Most Recent Monitor Data Heart Rate from ECG 70 NIBP 158/91 NIBP BP-Mean 113 Respiration from ECG 25 SpO2 99 Neck: supple Heart: no murmur, no gallops Respiratory: no wheezes, no rales, no ronchi Gastrointestinal: soft, normal bowel sounds Hosp A/P (1) Acute respiratory failure with hypoxia Code(s): J96.01 - ACUTE RESPIRATORY FAILURE WITH HYPOXIA Status: Acute (2) Pneumonia due to COVID-19 virus Code(s): U07.1 - COVID-19; J12.82 - PNEUMONIA DUE TO CORONAVIRUS DISEASE 2019 Status: Acute (3) BPH (benign prostatic hyperplasia) Code(s): N40.0 - BENIGN PROSTATIC HYPERPLASIA WITHOUT LOWER URINRY TRACT SYMP Status: Chronic Qualifiers: Lower urinary tract symptom presence: symptoms present (4) DM type 2 (diabetes mellitus, type 2) Status: Chronic Qualifiers: Diabetes mellitus shelter insulin use: without intermediate frame tender use Diabetes mellitus complication status: with hyperglycemia Qualified Code(s): E11.65 - Type 2 diabetes mellitus with hyperglycemia (5) HTN (hypertension) Code(s): I10 - ESSENTIAL (PRIMARY) HYPERTENSION Status: Chronic Qualifiers: Hypertension type: essential hypertension Qualified Code(s): I10 - Essential (primary) hypertension (6) Hypothyroidism Code(s): E03.9 - HYPOTHYROIDISM, UNSPECIFIED Status: Chronic Qualifiers: Hypothyroidism type: acquired Qualified Code(s): E03.9 - Hypothyroidism, unspecified - Plan pt up in bed more awake. will start pt on diet. pt transfer pt to medical floor. pt on dvt ppx. abx stopped. 09/04 pt's son Magdiel mckee. pt going for cysto in am since he pulled off his bond. pt's son want pt to have pen and paper i have communicated this with the nurse. will also try to take restraints off slowly since he is at a high risk of fall.
[2020-09-04] MEDS: cefTRIAXone\\ROCEPHIN 2 GM in Sodium Chloride 0.9% 100 ML IVPB SCH (17:54)
[2020-09-04] MEDS: Tamsulosin HCl 0.4 MG CAP PO SCH (20:39)
[2020-09-04] MEDS: Melatonin 3 MG TAB PO PRN (20:39)
[2020-09-05] MEDS: Sodium Chloride 0.9% 1,000 ML IV SCH ×2 (00:07→13:49)
--- NOTE | 2020-09-05 05:12 | CON ---
DATE OF CONSULTATION: 09/04/2020 REASON FOR CONSULTATION: 1. History of BPH with urinary retention. 2. Self catheter removal x2. HISTORY OF PRESENT ILLNESS: Mr. Demetrio Greenberg is a very pleasant 69-year-old white male known to me for history of obstructive BPH, now status post transurethral resection of the prostate gland on 07/04/2016 and last seen in clinic by me on 04/12/2020. The patient has a history of BPH with obstruction and has had some postprocedural incontinence issues. He was otherwise voiding normally when seen in April. The patient was admitted on 08/22/2020 with a 7-day history of COVID with a positive COVID test four days prior to the hospital admission date. The patient has been hospitalized in the unit and has recently been transferred out to the medical floor, where he remains confused and thrashing about. Since being taken off the ventilator and brought to the floor, apparently his Ferreira catheter has been pulled out at least twice. The patient apparently was retaining about 200 mL in the supine position and voiding when his bladder was about 800 mL full by report. At the present time, the patient is on the medical floor and still in restraints and appears to still be quite confused. REVIEW OF SYSTEMS: The patient is not able to participate in the review of systems. HOME MEDICATION LIST: Includes; 1. Allopurinol at 300 mg per day for gout. 2. Indomethacin taken p.r.n. gout attack. PAST MEDICAL HISTORY: 1. Anemia. 2. Diverticulosis. 3. Hyperlipidemia. 4. Hypothyroidism. 5. 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 6. Obesity. 7. Past history of melanoma. 8. Diabetes mellitus, type 2 without complication and without long-term use of insulin. PAST SURGICAL HISTORY: Includes cystoscopy in 1983, colonoscopy in 2009, and transurethral resection of prostate gland on 07/04/2016. FAMILY MEDICAL HISTORY: I was not able to obtain any pertinent family medical history from the patient. PHYSICAL EXAMINATION: VITAL SIGNS: The patient is currently afebrile with temperature of 97.7, pulse is 77, respiratory rate is 20, O2 saturation is 98%, and current blood pressure is 122/72. GENERAL: This is a confused white male, in no apparent distress. He is not in his usual pleasant state. He does admit to a little bit of confusion has been straining at his restraints during the day. HEAD, EYES, EARS, NOSE, AND THROAT: Extraocular movements are intact. Sclerae anicteric. NECK: Supple. LUNGS: Predominantly clear anteriorly. CARDIAC: Regular rate and rhythm. ABDOMEN: Soft and nontender. GENITOURINARY: Phallus appears uncircumcised. Retraction of foreskin finds glans unaffected by catheter removal. There is no gross bleeding. RECTUM: Digital rectal examination is not performed. Based on my last digital rectal examination in April, he has practically no prostate tissue remaining. I did not attempt catheter placement on the patient, but my colleague, Dr. Thomas did place catheters previously and noticed a step-off or a lip when placing the catheter, suggestive of possible bladder neck contracture, which may require further evaluation. When seen in April, the patient had no major obstructive complaints and did have occasional urinary leakage complaints. ASSESSMENT AND PLAN: 1. Self catheter removal x2, not currently bleeding. I am not recommending Ferreira catheter placement in this confused and difficult to restrain patient. Further catheter removals may result in trauma, which is uncorrectable. At present time, he voids down to about 200 mL by report. I am going to recommend that bladder scans be performed medially postvoid in the patient to obtain some kind of ideas to whether his bladder actually empties down to a lower level. There is no reason in this patient to have an indwelling Ferreira catheter. If the idea is to simply follow urine outputs as diapers could be weighed, alternatively the I's and O's could be obtained by having the patient attempt to void, though current confused state, I doubt he is going to be able to participate in that. 2. Urine for culture. Urinalysis or specimens for other purposes could be obtained by in and out catheterization or from voided urine. 3. Dietary concerns. The patient may be placed on a regular diet. I have no intention to take him to the operating room in the current condition. Over 70 minutes of initial evaluation, consultation, and assessment time was spent on this patient today. Job ID: [id number]
[2020-09-05 07:30] LABS: #Basophils 0.1 thou/uL (0.0-0.2); #Lymphocytes 0.7 thou/uL (1.20-3.40); #Monocytes 0.6 thou/uL (0.11-0.59); #Neutrophils 11.1 thou/uL (1.40-6.50); %Basophils 0.4 % (0.0-1.0); %Eosinophils 0.3 % (0.0-10.0); %Lymphocytes 5.9 % (21.0-51.0); %Monocytes 4.7 % (0.0-10.0); %Neutrophils 88.6 % (42.0-75.0); Hemoglobin 14.3 g/dL (14.0-18.0); Mean Corpuscular HGB CONC 33.1 g/dL (32.0-36.0); Mean Corpuscular Hemoglobin 31.7 pg (27.0-31.0); Mean Corpuscular Volume 95.6 fL (78.0-98.0); Platelet Count 191 thou/uL (130-400); RBC Distribution Width 12.3 % (11.5-14.5); Red Blood Cell (RBC) Count 4.51 mill/uL (4.70-6.10); White Blood Cell (WBC) Count 12.5 thou/uL (4.8-10.8)
[2020-09-05 07:33] LABS: Anion Gap 14 mmol/L (10-20); BUN (Urea Nitrogen) 16 mg/dL (8.4-25.7); Calc. Creatinine Clearance 107 mL/min (70-130); Calcium 7.9 mg/dL (7.8-10.44); Carbon Dioxide 27 mmol/L (23-31); Chloride 104 mmol/L (98-107); Glucose 127 mg/dL (80-115); Phosphorus 3.1 mg/dL (2.3-4.7); Potassium 3.5 mmol/L (3.5-5.1); Sodium 141 mmol/L (136-145)
[2020-09-05] MEDS: Finasteride 5 MG TAB PO SCH (07:51)
[2020-09-05] MEDS: Ascorbic Acid 500 mg Chewable Tablet PO SCH (07:51)
[2020-09-05] MEDS: Zinc Sulfate 220 MG CAP PO SCH (07:51)
[2020-09-05] MEDS: Allopurinol 300 MG TAB PO SCH (07:51)
[2020-09-05] MEDS: Dexamethasone 4 mg/ml Vial SLOW IVP SCH (07:51)
[2020-09-05] MEDS: guaiFENesin/DM ER PO SCH ×2 (07:51→19:44)
[2020-09-05] MEDS: Pantoprazole 40 MG VIAL IVP SCH (07:52)
[2020-09-05] MEDS: Albuterol 200 PUFF (6.7GM INHALER) INH SCH ×4 (07:52→18:57)
[2020-09-05] MEDS: Enoxaparin Sodium 40 MG/0.4 ML SYRINGE SC SCH (07:52)
[2020-09-05] MEDS: HumaLOG 300 UNITS/3 ML VIAL SC PRN (12:32)
--- NOTE | 2020-09-05 14:22 | PDOC.HOSPP ---
- Subjective Encounter Date: 09/05/20 Encounter Time: 10:30 Subjective: pt up in bed no complains to me, however he told the nursing staff that he is having double vision when he looking at things in a distant. - Objective Vital Signs & Weight: Vital Signs (12 hours) Temp Pulse Resp BP Pulse Ox 09/05/20 11:11 97.5 F L 88 16 133/80 100 09/05/20 08:12 97.7 F 84 16 126/74 93 L 09/05/20 08:00 93 L Weight Admit Weight 160 lb 3.2 oz Weight 160 lb 3.2 oz Most Recent Monitor Data Heart Rate from ECG 70 NIBP 158/91 NIBP BP-Mean 113 Respiration from ECG 25 SpO2 99 I&O: 09/04/20 09/05/20 09/06/20 06:59 06:59 06:59 Intake Total 1240 Balance 1240 Result Diagrams: 09/05/20 06:09 09/05/20 06:09 Additional Labs: Accuchecks 09/05/20 09/05/20 09/04/20 11:25 05:34 21:18 POC Glucose 234 H 123 H 250 H 09/04/20 16:49 POC Glucose 169 H Hospitalist ROS - Review of Systems Respiratory: denies: cough, dry, shortness of breath, hemoptysis, SOB with excertion, pleuritic pain, sputum, wheezing, other Cardiovascular: denies: chest pain, palpitations, orthopnea, paroxysmal noc. dyspnea, edema, light headedness, other Gastrointestinal: denies: nausea, vomiting, abdominal pain, diarrhea, cons tipation, melena, hematochezia, other - Medication Medications: Active Medications Generic Name Dose Route Start Last Admin Trade Name Freq PRN Reason Stop Dose Admin Acetaminophen 650 mg 08/22/20 11:36 09/03/20 20:39 Acetaminophen 325 Mg Tab PO 650 mg Q4H PRN Administration Headache/Fever/Mild Pain (1-3) Albuterol Sulfate 2 puff 08/22/20 15:00 09/05/20 11:12 Albuterol 200 Puff (6.7gm Inhaler) INH 2 puff [id number] SHREYAS Administration Allopurinol 300 mg 09/05/20 09:00 09/05/20 07:51 Allopurinol 300 Mg Tab PO 300 mg DAILY SHREYAS Administration Ascorbic Acid 1,000 mg 08/23/20 09:00 09/05/20 07:51 Ascorbic Acid 500 Mg Chewable Tablet PO 1,000 mg DAILY SHREYAS Administration Benzonatate 100 mg 08/22/20 11:42 08/24/20 19:15 Benzonatate 100 Mg Cap PO 100 mg TIDPRN PRN Administration Cough Dexamethasone 2 mg 09/03/20 09:00 09/05/20 07:51 Dexamethasone 4 Mg/Ml Vial SLOW IVP 2 mg DAILY SHREYAS Administration Enoxaparin Sodium 40 mg 09/03/20 09:00 09/05/20 07:52 Enoxaparin Sodium 40 Mg/0.4 Ml Syringe SC 40 mg DAILY SHREYAS Administration Finasteride 5 mg 08/26/20 09:00 09/05/20 07:51 Finasteride 5 Mg Tab PO 5 mg DAILY SHREYAS Administration Guaifenesin/Dextromethorphan 15 ml 08/22/20 11:36 08/24/20 21:30 Guaifenesin Dm 100-10/5 Ml Udcup PO 15 ml Q4H PRN Administration Cough Guaifenesin/Dextromethorphan 1 tab 08/31/20 21:00 09/05/20 07:51 Guaifenesin/Dm Er PO 1 tab Q12HR SHREYAS Administration Sodium Chloride 1,000 mls @ 75 mls/hr 08/23/20 10:15 09/05/20 13:49 Normal Saline 0.9% IV 1,000 mls .[id number] SHREYAS Administration Insulin Human Lispro 0 units 08/23/20 10:04 09/05/20 12:32 Humalog 300 Units/3 Ml Vial SC 3 unit .MILD SLIDING SCALE PRN Administration Mild Correctional Scale Insulin Human Lispro 0 units 08/23/20 10:04 08/24/20 19:15 Humalog 300 Units/3 Ml Vial SC 2 unit .BEDTIME SLIDING SC PRN Administration Bedtime Correctional Scale Melatonin 6 mg 09/02/20 23:59 09/04/20 20:39 Melatonin 3 Mg Tab PO 6 mg HSPRN PRN Administration Insomnia Metoprolol Tartrate 5 mg 08/30/20 12:27 09/02/20 02:34 Metoprolol Tartrate 5 Mg/5 Ml Vial IVP 5 mg Q6H PRN Administration sbp >180 or pulse >110/min Nitroglycerin 1 inch 08/29/20 18:06 09/01/20 03:07 Nitroglycerin 2% Ointment 1 Inch/1 Gm Packet TOP 1 inch Q8H PRN Administration sbp >180 Pantoprazole Sodium 40 mg 08/30/20 09:00 09/05/20 07:52 Pantoprazole 40 Mg Vial IVP 40 mg DAILY SHREYAS Administration Tamsulosin HCl 0.4 mg 08/25/20 21:00 09/04/20 20:39 Tamsulosin Hcl 0.4 Mg Cap PO 0.4 mg HS SHREYAS Administration Throat Lozenges 1 nolan 08/24/20 21:43 08/24/20 23:20 Cepastat Lozenges 1 Nolan PO 1 nolan Q2H PRN Administration Sore Throat Zinc Sulfate 220 mg 08/23/20 09:00 09/05/20 07:51 Zinc Sulfate 220 Mg Cap PO 220 mg DAILY SHREYAS Administration Hospitalist Exam Vitals: Vital Signs (12 hours) Temp Pulse Resp BP Pulse Ox 09/05/20 11:11 97.5 F L 88 16 133/80 100 09/05/20 08:12 97.7 F 84 16 126/74 93 L 09/05/20 08:00 93 L Weight Admit Weight 160 lb 3.2 oz Weight 160 lb 3.2 oz Most Recent Monitor Data Heart Rate from ECG 70 NIBP 158/91 NIBP BP-Mean 113 Respiration from ECG 25 SpO2 99 Neck: supple Heart: RRR, no murmur, no gallops Respiratory: no wheezes, no ronchi Gastrointestinal: soft, non-tender, normal bowel sounds Hosp A/P (1) Acute respiratory failure with hypoxia Code(s): J96.01 - ACUTE RESPIRATORY FAILURE WITH HYPOXIA Status: Acute (2) Pneumonia due to COVID-19 virus Code(s): U07.1 - COVID-19; J12.82 - PNEUMONIA DUE TO CORONAVIRUS DISEASE 2019 Status: Acute (3) BPH (benign prostatic hyperplasia) Code(s): N40.0 - BENIGN PROSTATIC HYPERPLASIA WITHOUT LOWER URINRY TRACT SYMP Status: Chronic Qualifiers: Lower urinary tract symptom presence: symptoms present (4) DM type 2 (diabetes mellitus, type 2) Status: Chronic Qualifiers: Diabetes mellitus correction insulin use: without termite renewal inspector use Diabetes mellitus complication status: with hyperglycemia Qualified Code(s): E11.65 - Type 2 diabetes mellitus with hyperglycemia (5) HTN (hypertension) Code(s): I10 - ESSENTIAL (PRIMARY) HYPERTENSION Status: Chronic Qualifiers: Hypertension type: essential hypertension Qualified Code(s): I10 - Essential (primary) hypertension (6) Hypothyroidism Code(s): E03.9 - HYPOTHYROIDISM, UNSPECIFIED Status: Chronic Qualifiers: Hypothyroidism type: acquired Qualified Code(s): E03.9 - Hypothyroidism, unspecified - Plan pt up in bed more awake. will start pt on diet. pt transfer pt to medical floor. pt on dvt ppx. abx stopped. 2/ pt's son Magdiel mckee. pt going for cysto in am since he pulled off his bond. pt's son want pt to have pen and paper i have communicated this with the nurse. will also try to take restraints off slowly since he is at a high risk of fall. 2/[address] brain. pt did not undergo cystoscopy today. He has been voiding. His restraints are off. pt eating and drinking.
--- NOTE | 2020-09-05 14:43 | CT ---
Exam: Head CT without contrast HISTORY: Double vision. COMPARISON: 09/02/2020 FINDINGS: Hemorrhage: No intraparenchymal hemorrhage or extra-axial hematoma. Brain parenchyma: With regard to the cerebrum, cortical sanders-white matter differentiation is preserve d. There is no midline shift. Basilar cisterns are patent. Chronic small vessel ischemic changes of the white matter identified. There is an indeterminate hypodensity in the left cerebellar hemisphere. Better interrogation with brain MRI is recommended to exclude a possible left cerebellar infarct. Ventricular system: Ventricles and sulci are patent and symmetric. Calvarium: Intact. Sinuses and mastoid air cells: Left sphenoid sinus disease. Sclerosis of bilateral mastoid air cells, likely IMPRESSION: 1. No acute intracranial process with regards to the cerebrum. 2. Indeterminate hypodensity in the left cerebellar hemisphere. Barring any contraindications, consid er MRI.
--- NOTE | 2020-09-05 19:37 | PRG ---
DATE OF SERVICE: 09/05/2020 CHIEF COMPLAINT: Status post self catheter removal x2. BRIEF HISTORY: Mr. Demetrio Greenberg is a very pleasant 69-year-old white male patient of mine, known to have a past history of BPH. He is status post a transurethral resection of the prostate gland. On 07/04/2016, has been voiding well. Since then, he was admitted on 08/22/2020 due to complications associated with a COVID diagnosis around 08/18/2020. The patient ultimately was hospitalized in the intensive care unit and has recently been transferred to the medical floor. Yesterday, when I evaluated Mr. Greenberg, he was relatively confused, did not seem to be competent to make any decision making regarding any interventions for himself and was not able to tell whether he had a full or empty bladder. The patient today is doing much better. PHYSICAL EXAMINATION: VITAL SIGNS: Temperature is 97.5, pulse 88, respirations 16, O2 saturation is 100% on 2 L by nasal cannula, and blood pressure is 133/80. GENERAL: This is a pleasant, awake, and alert white male, in no apparent distress. There is dressing on his forehead. He reports that he has double vision, which resolves if he covers one or the other of his two eyes suggest some type of motor function or muscular function of his eyes. The patient is otherwise without complaint. In last 24 hours, he had three wet diapers. This is a typical voiding pattern that probably would account for about 1800 mL of urine voided. He does not have any postvoid residuals recorded in the nurse's notes . PULMONARY: The patient is breathing on his own without difficulty. CARDIAC: There is regular rhythm. EXTREMITIES: Motor function is good. He is able to stand with the assistance of the physical therapy team. He is not yet up to ambulating. This is apparently his first trip out of bed on his own with assistance. LABORATORY STUDIES: The patient's white count is 12.5 this morning with an 8.6% neutrophils, improved from yesterday. His hemoglobin is 14.3 with hematocrit of 43.1. There is a left shift with an ANC of 11.1 down from 12.7 yesterday. Serum chemistries show electrolytes within normal limits with a normal blood urea nitrogen of 16 and creatinine of 0.66. BUN to creatinine ratio suggestive of dehydration. Estimated GFR is greater than 90. He has had a fluctuating blood glucose levels over the day, most recently 234. ASSESSMENT AND PLAN: 1. The patient with infrequent large volume voids and history of past transurethral resection of the prostate. The patient has self removed catheter x2 during this hospitalization, but does not have any blood per urethra. At present time, I am not recommending replacing the catheter due to the patient's recent history of altered mental status requiring restraints. He is not feeling like he is overly full today and not reporting any desire to void. He does have a large capacity bladder with excellent compliance, perhaps more compliance than necessary and do this voids infrequently. He does have a degree of postvoid residual, which in the past has typically been good although on this hospitalization, there is suggestion that he might be up to as high as 200 mL postvoid residual. I would recommend continued assessment of the patient's postvoid residuals with bladder scan device. It is not necessary to record all the bladder volumes. The patient has only immediately postvoid. 2. Dietary status. I have no intentions to take this patient to the operating room at present time and may continue on diet as appropriate based on his swallowing difficulties. Over 35 minutes of followup assessment and consultation time was spent in evaluation of this patient today. Job ID: [id number]
[2020-09-05] MEDS: Tamsulosin HCl 0.4 MG CAP PO SCH (19:44)
[2020-09-05] MEDS: Acetaminophen 325 MG TAB PO PRN (19:45)
[2020-09-05] MEDS: Melatonin 3 MG TAB PO PRN (19:45)
[2020-09-06] MEDS: Sodium Chloride 0.9% 1,000 ML IV SCH ×2 (03:40→19:21)
[2020-09-06] MEDS: Albuterol 200 PUFF (6.7GM INHALER) INH SCH ×4 (06:21→21:52)
[2020-09-06] MEDS: Ascorbic Acid 500 mg Chewable Tablet PO SCH (08:52)
[2020-09-06] MEDS: Finasteride 5 MG TAB PO SCH (08:52)
[2020-09-06] MEDS: Dexamethasone 4 mg/ml Vial SLOW IVP SCH (08:52)
[2020-09-06] MEDS: guaiFENesin/DM ER PO SCH ×2 (08:52→21:40)
[2020-09-06] MEDS: Zinc Sulfate 220 MG CAP PO SCH (08:52)
[2020-09-06] MEDS: Allopurinol 300 MG TAB PO SCH (08:52)
[2020-09-06] MEDS: Aspirin Chewable 81 MG TAB PO SCH (08:53)
[2020-09-06] MEDS: Enoxaparin Sodium 40 MG/0.4 ML SYRINGE SC SCH (08:53)
[2020-09-06] MEDS: Pantoprazole 40 MG VIAL IVP SCH (08:53)
[2020-09-06] MEDS ORDERED: cloNIDine 0.1mg/24 Hour PATCH TD SCH (09:00)
[2020-09-06] MEDS: HumaLOG 300 UNITS/3 ML VIAL SC PRN (13:45)
--- NOTE | 2020-09-06 17:13 | PDOC.HOSPP ---
- Subjective Encounter Date: 09/06/20 Encounter Time: 16:43 Subjective: pt up in bed no complains - Objective Vital Signs & Weight: Vital Signs (12 hours) Temp Pulse Resp BP Pulse Ox Pulse Ox Pulse Ox 09/06/20 13:50 92 L 92 L 09/06/20 11:46 98.0 F 91 18 137/78 94 L 09/06/20 07:59 97.9 F 86 18 121/66 91 L Weight Admit Weight 160 lb 3.2 oz Weight 160 lb 3.2 oz Most Recent Monitor Data Heart Rate from ECG 70 NIBP 158/91 NIBP BP-Mean 113 Respiration from ECG 25 SpO2 99 I&O: 09/05/20 09/06/20 09/07/20 06:59 06:59 06:59 Intake Total 1240 2745 Output Total 800 Balance 1240 1945 Result Diagrams: 09/07/20 04:22 09/07/20 04:22 Additional Labs: Accuchecks 09/06/20 09/05/20 04:51 21:08 POC Glucose 138 H 197 H Hospitalist ROS - Review of Systems Cardiovascular: denies: chest pain, palpitations, orthopnea, paroxysmal noc. dyspnea, edema, light headedness, other Gastrointestinal: denies: nausea, vomiting, abdominal pain, diarrhea, constipation, melena, hematochezia, other Genitourinary: denies: dysuria, frequency, incontinence, hematuria, retention, other - Medication Medications: Active Medications Generic Name Dose Route Start Last Admin Trade Name Freq PRN Reason Stop Dose Admin Acetaminophen 650 mg 08/22/20 11:36 09/05/20 19:45 Acetaminophen 325 Mg Tab PO 650 mg Q4H PRN Administration Headache/Fever/Mild Pain (1-3) Albuterol Sulfate 2 puff 08/22/20 15:00 09/06/20 13:47 Albuterol 200 Puff (6.7gm Inhaler) INH 2 puff [id number] SHREYAS Administration Allopurinol 300 mg 09/05/20 09:00 09/06/20 08:52 Allopurinol 300 Mg Tab PO 300 mg DAILY SHREYAS Administration Ascorbic Acid 1,000 mg 08/23/20 09:00 09/06/20 08:52 Ascorbic Acid 500 Mg Chewable Tablet PO 1,000 mg DAILY SHREYAS Administration Aspirin 81 mg 09/06/20 09:00 09/06/20 08:53 Aspirin Chewable 81 Mg Tab PO 81 mg DAILY SHREYAS Administration Benzonatate 100 mg 08/22/20 11:42 08/24/20 19:15 Benzonatate 100 Mg Cap PO 100 mg TIDPRN PRN Administration Cough Clonidine 0.1 mg 09/06/20 09:00 09/06/20 13:01 Clonidine 0.1mg/24 Hour Patch TD 0.1 mg [id number] SHREYAS Administration Dexamethasone 2 mg 09/03/20 09:00 09/06/20 08:52 Dexamethasone 4 Mg/Ml Vial SLOW IVP 2 mg DAILY SHREYAS Administration Enoxaparin Sodium 40 mg 09/03/20 09:00 09/06/20 08:53 Enoxaparin Sodium 40 Mg/0.4 Ml Syringe SC 40 mg DAILY SHREYAS Administration Finasteride 5 mg 08/26/20 09:00 09/06/20 08:52 Finasteride 5 Mg Tab PO 5 mg DAILY SHREYAS Administration Guaifenesin/Dextromethorphan 15 ml 08/22/20 11:36 08/24/20 21:30 Guaifenesin Dm 100-10/5 Ml Udcup PO 15 ml Q4H PRN Administration Cough Guaifenesin/Dextromethorphan 1 tab 08/31/20 21:00 09/06/20 08:52 Guaifenesin/Dm Er PO 1 tab Q12HR SHREYAS Administration Sodium Chloride 1,000 mls @ 75 mls/hr 08/23/20 10:15 09/06/20 03:40 Normal Saline 0.9% IV 1,000 mls .[id number] SHREYAS Administration Insulin Human Lispro 0 units 08/23/20 10:04 09/06/20 13:45 Humalog 300 Units/3 Ml Vial SC 4 unit .MILD SLIDING SCALE PRN Administration Mild Correctional Scale Insulin Human Lispro 0 units 08/23/20 10:04 08/24/20 19:15 Humalog 300 Units/3 Ml Vial SC 2 unit .BEDTIME SLIDING SC PRN Administration Bedtime Correctional Scale Melatonin 6 mg 09/02/20 23:59 09/05/20 19:45 Melatonin 3 Mg Tab PO 6 mg HSPRN PRN Administration Insomnia Metoprolol Tartrate 5 mg 08/30/20 12:27 09/02/20 02:34 Metoprolol Tartrate 5 Mg/5 Ml Vial IVP 5 mg Q6H PRN Administration sbp >180 or pulse >110/min Nitroglycerin 1 inch 08/29/20 18:06 09/01/20 03:07 Nitroglycerin 2% Ointment 1 Inch/1 Gm Packet TOP 1 inch Q8H PRN Administration sbp >180 Pantoprazole Sodium 40 mg 08/30/20 09:00 09/06/20 08:53 Pantoprazole 40 Mg Vial IVP 40 mg DAILY SHREYAS Administration Sodium Chloride 10 ml 08/22/20 11:36 09/06/20 08:56 Flush - Normal Saline 10 Ml Syringe IVF 10 ml PRN PRN Administration Saline Flush Tamsulosin HCl 0.4 mg 08/25/20 21:00 09/05/20 19:44 Tamsulosin Hcl 0.4 Mg Cap PO 0.4 mg HS SHREYAS Administration Throat Lozenges 1 nolan 08/24/20 21:43 08/24/20 23:20 Cepastat Lozenges 1 Nolan PO 1 nolan Q2H PRN Administration Sore Throat Zinc Sulfate 220 mg 08/23/20 09:00 09/06/20 08:52 Zinc Sulfate 220 Mg Cap PO 220 mg DAILY SHREYAS Administration Hospitalist Exam Vitals: Vital Signs (12 hours) Temp Pulse Resp BP Pulse Ox Pulse Ox Pulse Ox 09/06/20 13:50 92 L 92 L 09/06/20 11:46 98.0 F 91 18 137/78 94 L 09/06/20 07:59 97.9 F 86 18 121/66 91 L Weight Admit Weight 160 lb 3.2 oz Weight 160 lb 3.2 oz Most Recent Monitor Data Heart Rate from ECG 70 NIBP 158/91 NIBP BP-Mean 113 Respiration from ECG 25 SpO2 99 Neck: supple Heart: RRR, no murmur, no gallops Respiratory: no wheezes, no rales Gastrointestinal: soft, non-tender, normal bowel sounds Hosp A/P (1) Acute respiratory failure with hypoxia Code(s): J96.01 - ACUTE RESPIRATORY FAILURE WITH HYPOXIA Status: Acute (2) Pneumonia due to COVID-19 virus Code(s): U07.1 - COVID-19; J12.82 - PNEUMONIA DUE TO CORONAVIRUS DISEASE 2019 Status: Acute (3) BPH (benign prostatic hyperplasia) Code(s): N40.0 - BENIGN PROSTATIC HYPERPLASIA WITHOUT LOWER URINRY TRACT SYMP Status: Chronic Qualifiers: Lower urinary tract symptom presence: symptoms present (4) DM type 2 (diabetes mellitus, type 2) Status: Chronic Qualifiers: Diabetes mellitus intermediate insulin use: without intermediate use Diabetes mellitus complication status: with hyperglycemia Qualified Code(s): E11.65 - Type 2 diabetes mellitus with hyperglycemia (5) HTN (hypertension) Code(s): I10 - ESSENTIAL (PRIMARY) HYPERTENSION Status: Chronic Qualifiers: Hypertension type: essential hypertension Qualified Code(s): I10 - Essential (primary) hypertension (6) Hypothyroidism Code(s): E03.9 - HYPOTHYROIDISM, UNSPECIFIED Status: Chronic Qualifiers: Hypothyroidism type: acquired Qualified Code(s): E03.9 - Hypothyroidism, unspecified - Plan pt up in bed more awake. will start pt on diet. pt transfer pt to medical floor. pt on dvt ppx. abx stopped. 09/04 pt's son Magdiel mckee. pt going for cysto in am since he pulled off his bond. pt's son want pt to have pen and paper i have communicated this with the nurse. will also try to take restraints off slowly since he is at a high risk of fall. 2/ will get Ct brain. pt did not undergo cystoscopy today. He has been voiding. His restraints are off. pt eating and drinking. 09/[address] head indicated hypodense lesion in the left cerebellum area. Will start patient on aspirin and statin will transfer patient to stroke unit and consult neurology
[2020-09-06] MEDS: Atorvastatin Calcium 40 MG TAB PO SCH (21:40)
[2020-09-06] MEDS: Tamsulosin HCl 0.4 MG CAP PO SCH (21:40)
[2020-09-07 04:50] LABS: #Eosinphils 0.1 thou/uL (0.0-0.7); #Lymphocytes 0.9 thou/uL (1.20-3.40); #Monocytes 0.5 thou/uL (0.11-0.59); #Neutrophils 10.7 thou/uL (1.40-6.50); %Basophils 0.2 % (0.0-1.0); %Eosinophils 0.5 % (0.0-10.0); %Lymphocytes 7.2 % (21.0-51.0); %Monocytes 4.3 % (0.0-10.0); %Neutrophils 87.9 % (42.0-75.0); Hemoglobin 12.5 g/dL (14.0-18.0); Mean Corpuscular HGB CONC 33.1 g/dL (32.0-36.0); Mean Corpuscular Volume 96.6 fL (78.0-98.0); Mean Platelet Volume 8.8 fL (7.4-10.4); Platelet Count 177 thou/uL (130-400); RBC Distribution Width 12.2 % (11.5-14.5); Red Blood Cell (RBC) Count 3.92 mill/uL (4.70-6.10); White Blood Cell (WBC) Count 12.1 thou/uL (4.8-10.8)
[2020-09-07 05:08] LABS: Anion Gap 12 mmol/L (10-20); BUN (Urea Nitrogen) 11 mg/dL (8.4-25.7); Calc. Creatinine Clearance 114 mL/min (70-130); Calcium 7.9 mg/dL (7.8-10.44); Carbon Dioxide 32 mmol/L (23-31); Chloride 101 mmol/L (98-107); Glucose 107 mg/dL (80-115); Magnesium 1.8 mg/dL (1.6-2.6); Potassium 3.2 mmol/L (3.5-5.1); Sodium 142 mmol/L (136-145)
[2020-09-07] MEDS: Albuterol 200 PUFF (6.7GM INHALER) INH SCH ×4 (06:33→20:41)
[2020-09-07] MEDS ORDERED: Electrolyte Replacement Protocol FS PRN (07:00)
[2020-09-07] MEDS ORDERED: Magnesium 2 GM/50 ML 2 GM in Premix Bag 1 BAG IVPB SCH (09:00)
[2020-09-07] MEDS ORDERED: Potassium Chloride 20 MEQ TAB PO SCH ×2 (09:00→09:15)
[2020-09-07] MEDS: Aspirin Chewable 81 MG TAB PO SCH (09:32)
[2020-09-07] MEDS: Enoxaparin Sodium 40 MG/0.4 ML SYRINGE SC SCH (09:32)
[2020-09-07] MEDS: guaiFENesin/DM ER PO SCH ×2 (09:33→20:41)
[2020-09-07] MEDS: Zinc Sulfate 220 MG CAP PO SCH (09:33)
[2020-09-07] MEDS: Finasteride 5 MG TAB PO SCH (09:33)
[2020-09-07] MEDS: Ascorbic Acid 500 mg Chewable Tablet PO SCH (09:33)
[2020-09-07] MEDS: Allopurinol 300 MG TAB PO SCH (09:33)
[2020-09-07] MEDS: Dexamethasone 4 mg/ml Vial SLOW IVP SCH (09:34)
[2020-09-07] MEDS: Pantoprazole 40 MG VIAL IVP SCH (09:34)
--- NOTE | 2020-09-07 12:57 | CON ---
NEUROLOGY CONSULTATION DATE OF CONSULTATION: 09/07/2020 REASON FOR CONSULTATION: Stroke. HISTORY OF PRESENT ILLNESS: Mr. Greenberg is a 69-year-old male with medical history significant for diabetes mellitus, hypothyroidism, BPH, presented to the emergency room on 08/22/2020, because of shortness of breath and he tested positive for COVID 4 days prior to the admission and his symptoms were chills, fever, and myalgias. In the emergency room . His initial chest x-ray showed diffuse patchy infiltrates consistent with COVID, so he was admitted and subsequently intubated and sedated and treated for pneumonia. He got intubated on 08/25/2020 and extubated on 08/29/2020. Since then then there was intermittent confusion but seems to be improving. He was transferred to the medical floor and complained of double vision 2 days ago with intermittent confusion, and head CT was done, which showed abnormal hypodensity on the head CT, and Neurology was consulted for stroke management. The patient is now transferred to the stroke floor. The patient is somnolent and a poor historian. History is obtained from review of the medical records. REVIEW OF SYSTEMS: Unobtainable due to the patient being somnolent. ALLERGIES: TO SULFA DRUGS. PAST MEDICAL HISTORY: Type 2 diabetes mellitus, hypothyroidism. PAST SURGICAL HISTORY: No significant past surgical history. FAMILY HISTORY: No significant family history. SOCIAL HISTORY: The patient lives with family. Independent on ambulation. Denies smoking, alcohol, or illegal drug use. Vital Signs & Weight: Vital Signs (12 hours) Temp Pulse Resp BP Pulse Ox Pulse Ox Pulse Ox 09/06/20 13:50 92 L 92 L 09/06/20 11:46 98.0 F 91 18 137/78 94 L 09/06/20 07:59 97.9 F 86 18 121/66 91 L Weight Admit Weight 160 lb 3.2 oz Weight 160 lb 3.2 oz Most Recent Monitor Data Heart Rate from ECG 70 NIBP 158/91 NIBP BP-Mean 113 Respiration from ECG 25 SpO2 99 I&O: 09/05/20 09/06/20 09/07/20 06:59 06:59 06:59 Intake Total 1240 2745 Output Total 800 Balance 1240 1945 Additional Labs: Accuchecks 09/06/20 09/05/20 04:51 21:08 POC Glucose 138 H 197 H Active Medications Generic Name Dose Route Start Last Admin Trade Name Freq PRN Reason Stop Dose Admin Acetaminophen 650 mg 08/22/20 11:36 09/05/20 19:45 Acetaminophen 325 Mg Tab PO 650 mg Q4H PRN Administration Headache/Fever/Mild Pain (1-3) Albuterol Sulfate 2 puff 08/22/20 15:00 09/06/20 13:47 Albuterol 200 Puff (6.7gm Inhaler) INH 2 puff [id number] SHREYAS Administration Allopurinol 300 mg 09/05/20 09:00 09/06/20 08:52 Allopurinol 300 Mg Tab PO 300 mg DAILY SHREYAS Administration Ascorbic Acid 1,000 mg 08/23/20 09:00 09/06/20 08:52 Ascorbic Acid 500 Mg Chewable Tablet PO 1,000 mg DAILY SHREYAS Administration Aspirin 81 mg 09/06/20 09:00 09/06/20 08:53 Aspirin Chewable 81 Mg Tab PO 81 mg DAILY SHREYAS Administration Benzonatate 100 mg 08/22/20 11:42 08/24/20 19:15 Benzonatate 100 Mg Cap PO 100 mg TIDPRN PRN Administration Cough Clonidine 0.1 mg 09/06/20 09:00 09/06/20 13:01 Clonidine 0.1mg/24 Hour Patch TD 0.1 mg Q7DAYS SHREYAS Administration Dexamethasone 2 mg 09/03/20 09:00 09/06/20 08:52 Dexamethasone 4 Mg/Ml Vial SLOW IVP 2 mg DAILY SHREYAS Administration Enoxaparin Sodium 40 mg 09/03/20 09:00 09/06/20 08:53 Enoxaparin Sodium 40 Mg/0.4 Ml Syringe SC 40 mg DAILY SHREYAS Administration Finasteride 5 mg 08/26/20 09:00 09/06/20 08:52 Finasteride 5 Mg Tab PO 5 mg DAILY SHREYAS Administration Guaifenesin/Dextromethorphan 15 ml 08/22/20 11:36 08/24/20 21:30 Guaifenesin Dm 100-10/5 Ml Udcup PO 15 ml Q4H PRN Administration Cough Guaifenesin/Dextromethorphan 1 tab 08/31/20 21:00 09/06/20 08:52 Guaifenesin/Dm Er PO 1 tab Q12HR SHREYAS Administration Sodium Chloride 1,000 mls @ 75 mls/hr 08/23/20 10:15 09/06/20 03:40 Normal Saline 0.9% IV 1,000 mls .[id number] SHREYAS Administration Insulin Human Lispro 0 units 08/23/20 10:04 09/06/20 13:45 Humalog 300 Units/3 Ml Vial SC 4 unit .MILD SLIDING SCALE PRN Administration Mild Correctional Scale Insulin Human Lispro 0 units 08/23/20 10:04 08/24/20 19:15 Humalog 300 Units/3 Ml Vial SC 2 unit .BEDTIME SLIDING SC PRN Administration Bedtime Correctional Scale Melatonin 6 mg 09/02/20 23:59 09/05/20 19:45 Melatonin 3 Mg Tab PO 6 mg HSPRN PRN Administration Insomnia Metoprolol Tartrate 5 mg 08/30/20 12:27 09/02/20 02:34 Metoprolol Tartrate 5 Mg/5 Ml Vial IVP 5 mg Q6H PRN Administration sbp >180 or pulse >110/min Nitroglycerin 1 inch 08/29/20 18:06 09/01/20 03:07 Nitroglycerin 2% Ointment 1 Inch/1 Gm Packet TOP 1 inch Q8H PRN Administration sbp >180 Pantoprazole Sodium 40 mg 08/30/20 09:00 09/06/20 08:53 Pantoprazole 40 Mg Vial IVP 40 mg DAILY SHREYAS Administration Sodium Chloride 10 ml 08/22/20 11:36 09/06/20 08:56 Flush - Normal Saline 10 Ml Syringe IVF 10 ml PRN PRN Administration Saline Flush Tamsulosin HCl 0.4 mg 08/25/20 21:00 09/05/20 19:44 Tamsulosin Hcl 0.4 Mg Cap PO 0.4 mg HS SHREYAS Administration Throat Lozenges 1 nolan 08/24/20 21:43 08/24/20 23:20 Cepastat Lozenges 1 Nolan PO 1 nolan Q2H PRN Administration Sore Throat Zinc Sulfate 220 mg 08/23/20 09:00 09/06/20 08:52 Zinc Sulfate 220 Mg Cap PO 220 mg DAILY SHREYAS Administration PHYSICAL EXAMINATION: GENERAL: The patient is awake, but somnolent. Follows commands intermittently. CVS: Regular rate and rhythm. CHEST: rales. ABDOMEN: Soft. NECK: Supple. NEUROLOGICAL: Mental status, the patient is alert and oriented to person and place. Follows commands intermittently. Cranial nerves 2 through 12 are intact. Motor, muscle tone and bulk are normal. Strength, moving all 4 extremities . Sensory, withdraws to nailbed pressure bilaterally. Gait deferred due to the patient's safety reason. ASSESSMENT AND PLAN: (1) Acute respiratory failure with hypoxia Code(s): J96.01 - ACUTE RESPIRATORY FAILURE WITH HYPOXIA Status: Acute (2) Pneumonia due to COVID-19 virus Code(s): U07.1 - COVID-19; J12.82 - PNEUMONIA DUE TO CORONAVIRUS DISEASE 2018 Status: Acute (3) BPH (benign prostatic hyperplasia) Code(s): N40.0 - BENIGN PROSTATIC HYPERPLASIA WITHOUT LOWER URINRY TRACT SYMP Status: Chronic Qualifiers: Lower urinary tract symptom presence: symptoms present (4) DM type 2 (diabetes mellitus, type 2) Status: Chronic Qualifiers: Diabetes mellitus terminal gauger supervisor insulin use: without terminal gauger supervisor use Diabetes mellitus complication status: with hyperglycemia Qualified Code(s): E11.65 - Type 2 diabetes mellitus with hyperglycemia (5) HTN (hypertension) Code(s): I10 - ESSENTIAL (PRIMARY) HYPERTENSION Status: Chronic Qualifiers: Hypertension type: essential hypertension Qualified Code(s): I10 - Essential (primary) hypertension (6) Hypothyroidism Code(s): E03.9 - HYPOTHYROIDISM, UNSPECIFIED Status: Chronic Qualifiers: Hypothyroidism type: acquired Qualified Code(s): E03.9 - Hypothyroidism, unspecified Mr. Greenberg is a 69-year-old male, status post extubation, because COVID-19 infection, consulted because of abnormal head CT. Head CT showed indeterminate hypodensity in the cerebellum. Consider MRI of the brain to rule out acute intracranial process. 2D echo to evaluate for left ventricular ejection fraction and carotid Dopplers to rule out significant stenosis. Permissive control of blood pressure at this time. Strict control of blood glucose. Check hemoglobin A1c, fasting lipid panel and TSH. Telemetry to rule out arrhythmias. Start aspirin and statin for secondary stroke prevention. Neuro checks every 4 hours. Telemetry to rule out arrhythmias. PT/OT/Speech. Medical management per primary team. We will continue to follow. Thank you for the consult. Job ID: [id number] MTDD
[2020-09-07] MEDS: HumaLOG 300 UNITS/3 ML VIAL SC PRN ×2 (14:20→18:03)
--- NOTE | 2020-09-07 16:24 | ULT ---
Carotid duplex sonogram HISTORY: CVA. Vascular disease. FINDINGS: Right: Minimal plaque. Color and spectral Doppler evaluation, peak systolic velocity of 75 cm/s, and IC to CC ratio of 1.1 suggest no hemodynamically significant stenosis within the extracranial right ICA. Antegrade flow within the vertebral artery. Left: Minimal plaque. Color and spectral Doppler evaluation, peak systolic velocity of 54 cm/s, and I C to CC ratio 0.7 suggest no hemodynamically significant stenosis within the extracranial left ICA. Antegrade flow within the vertebral artery. IMPRESSION : No evidence of significant stenosis.
--- NOTE | 2020-09-07 17:17 | PDOC.HOSPP ---
- Subjective Encounter Date: 09/07/20 Encounter Time: 12:30 Subjective: Patient up in bed drowsy but easily arousable. - Objective Vital Signs & Weight: Vital Signs (12 hours) Temp Pulse Resp BP BP Pulse Ox 09/07/20 16:00 98.1 F 89 20 165/89 H 95 09/07/20 11:58 97.7 F 80 28 H 119/72 93 L 09/07/20 09:47 97.7 F 86 21 H 99/54 L 92 L Weight Admit Weight 160 lb 3.2 oz Weight 160 lb 3.2 oz Most Recent Monitor Data Heart Rate from ECG 70 NIBP 158/91 NIBP BP-Mean 113 Respiration from ECG 25 SpO2 99 I&O: 09/06/20 09/07/20 09/08/20 06:59 06:59 06:59 Intake Total 2745 100 234 Output Total 800 950 250 Balance 1945 -850 -16 Result Diagrams: 09/07/20 04:22 09/07/20 04:22 Additional Labs: Accuchecks 09/07/20 09/07/20 09/07/20 16:53 11:58 07:40 POC Glucose 253 H 201 H 99 09/07/20 09/06/20 09/06/20 06:20 21:59 16:51 POC Glucose 115 H 129 H 144 H 09/06/20 11:45 POC Glucose 292 H Hospitalist ROS - Review of Systems Cardiovascular: denies: chest pain, palpitations, orthopnea, paroxysmal noc. dyspnea, edema, light headedness, other Gastrointestinal: denies: nausea, vomiting, abdominal pain, diarrhea, constipation, melena, hematochezia, other Genitourinary: denies: dysuria, frequency, incontinence, hematuria, retention, other - Medication Medications: Active Medications Generic Name Dose Route Start Last Admin Trade Name Freq PRN Reason Stop Dose Admin Acetaminophen 650 mg 08/22/20 11:36 09/05/20 19:45 Acetaminophen 325 Mg Tab PO 650 mg Q4H PRN Administration Headache/Fever/Mild Pain (1-3) Albuterol Sulfate 2 puff 08/22/20 15:00 09/07/20 12:18 Albuterol 200 Puff (6.7gm Inhaler) INH 2 puff [id number] SHREYAS Administration Allopurinol 300 mg 09/05/20 09:00 09/07/20 09:33 Allopurinol 300 Mg Tab PO 300 mg DAILY SHREYAS Administration Ascorbic Acid 1,000 mg 08/23/20 09:00 09/07/20 09:33 Ascorbic Acid 500 Mg Chewable Tablet PO 1,000 mg DAILY SHREYAS Administration Aspirin 81 mg 09/06/20 09:00 09/07/20 09:32 Aspirin Chewable 81 Mg Tab PO 81 mg DAILY SHREYAS Administration Atorvastatin Calcium 40 mg 09/06/20 21:00 09/06/20 21:40 Atorvastatin Calcium 40 Mg Tab PO 40 mg HS SHREYAS Administration Benzonatate 100 mg 08/22/20 11:42 08/24/20 19:15 Benzonatate 100 Mg Cap PO 100 mg TIDPRN PRN Administration Cough Clonidine 0.1 mg 09/06/20 09:00 09/06/20 13:01 Clonidine 0.1mg/24 Hour Patch TD 0.1 mg Q7DAYS SHREYAS Administration Dexamethasone 2 mg 09/03/20 09:00 09/07/20 09:34 Dexamethasone 4 Mg/Ml Vial SLOW IVP 2 mg DAILY SHREYAS Administration Enoxaparin Sodium 40 mg 09/03/20 09:00 09/07/20 09:32 Enoxaparin Sodium 40 Mg/0.4 Ml Syringe SC 40 mg DAILY SHREYAS Administration Finasteride 5 mg 08/26/20 09:00 09/07/20 09:33 Finasteride 5 Mg Tab PO 5 mg DAILY SHREYAS Administration Guaifenesin/Dextromethorphan 15 ml 08/22/20 11:36 08/24/20 21:30 Guaifenesin Dm 100-10/5 Ml Udcup PO 15 ml Q4H PRN Administration Cough Guaifenesin/Dextromethorphan 1 tab 08/31/20 21:00 09/07/20 09:33 Guaifenesin/Dm Er PO 1 tab Q12HR SHREYAS Administration Insulin Human Lispro 0 units 08/23/20 10:04 09/07/20 14:20 Humalog 300 Units/3 Ml Vial SC 3 unit .MILD SLIDING SCALE PRN Administration Mild Correctional Scale Insulin Human Lispro 0 units 08/23/20 10:04 08/24/20 19:15 Humalog 300 Units/3 Ml Vial SC 2 unit .BEDTIME SLIDING SC PRN Administration Bedtime Correctional Scale Melatonin 6 mg 09/02/20 23:59 09/05/20 19:45 Melatonin 3 Mg Tab PO 6 mg HSPRN PRN Administration Insomnia Metoprolol Tartrate 5 mg 08/30/20 12:27 09/02/20 02:34 Metoprolol Tartrate 5 Mg/5 Ml Vial IVP 5 mg Q6H PRN Administration sbp >180 or pulse >110/min Nitroglycerin 1 inch 08/29/20 18:06 09/01/20 03:07 Nitroglycerin 2% Ointment 1 Inch/1 Gm Packet TOP 1 inch Q8H PRN Administration sbp >180 Pantoprazole Sodium 40 mg 08/30/20 09:00 09/07/20 09:34 Pantoprazole 40 Mg Vial IVP 40 mg DAILY SHREYAS Administration Sodium Chloride 10 ml 08/22/20 11:36 09/06/20 08:56 Flush - Normal Saline 10 Ml Syringe IVF 10 ml PRN PRN Administration Saline Flush Tamsulosin HCl 0.4 mg 08/25/20 21:00 09/06/20 21:40 Tamsulosin Hcl 0.4 Mg Cap PO 0.4 mg HS SHREYAS Administration Throat Lozenges 1 nolan 08/24/20 21:43 08/24/20 23:20 Cepastat Lozenges 1 Nolan PO 1 nolan Q2H PRN Administration Sore Throat Zinc Sulfate 220 mg 08/23/20 09:00 09/07/20 09:33 Zinc Sulfate 220 Mg Cap PO 220 mg DAILY SHREYAS Administration Hospitalist Exam Vitals: Vital Signs (12 hours) Temp Pulse Resp BP BP Pulse Ox 09/07/20 16:00 98.1 F 89 20 165/89 H 95 09/07/20 11:58 97.7 F 80 28 H 119/72 93 L 09/07/20 09:47 97.7 F 86 21 H 99/54 L 92 L Weight Admit Weight 160 lb 3.2 oz Weight 160 lb 3.2 oz Most Recent Monitor Data Heart Rate from ECG 70 NIBP 158/91 NIBP BP-Mean 113 Respiration from ECG 25 SpO2 99 Neck: supple Heart: RRR, no murmur Respiratory: no wheezes, no rales, normal chest expansion Gastrointestinal: soft, non-tender, normal bowel sounds Neurological - other findings: [id number] intact, patient is very unsteady on his feet Hosp A/P (1) Acute respiratory failure with hypoxia Code(s): J96.01 - ACUTE RESPIRATORY FAILURE WITH HYPOXIA Status: Acute (2) Pneumonia due to COVID-19 virus Code(s): U07.1 - COVID-19; J12.82 - PNEUMONIA DUE TO CORONAVIRUS DISEASE 2019 Status: Acute (3) BPH (benign prostatic hyperplasia) Code(s): N40.0 - BENIGN PROSTATIC HYPERPLASIA WITHOUT LOWER URINRY TRACT SYMP Status: Chronic Qualifiers: Lower urinary tract symptom presence: symptoms present (4) DM type 2 (diabetes mellitus, type 2) Status: Chronic Qualifiers: Diabetes mellitus skilled nursing insulin use: without longwall headgate operator use Diabetes mellitus complication status: with hyperglycemia Qualified Code(s): E11.65 - Type 2 diabetes mellitus with hyperglycemia (5) HTN (hypertension) Code(s): I10 - ESSENTIAL (PRIMARY) HYPERTENSION Status: Chronic Qualifiers: Hypertension type: essential hypertension Qualified Code(s): I10 - Essential (primary) hypertension (6) Hypothyroidism Code(s): E03.9 - HYPOTHYROIDISM, UNSPECIFIED Status: Chronic Qualifiers: Hypothyroidism type: acquired Qualified Code(s): E03.9 - Hypothyroidism, unspecified - Plan pt up in bed more awake. will start pt on diet. pt transfer pt to medical floor. pt on dvt ppx. abx stopped. 09/04 pt's son Magdiel mckee. pt going for cysto in am since he pulled off his bond. pt's son want pt to have pen and paper i have communicated this with the nurse. will also try to take restraints off slowly since he is at a high risk of fall. [address] brain[address] pt did not undergo cystoscopy today. He has been voiding. His restraints are off. pt eating and drinking. 09/[address] head indicated hypodense lesion in the left cerebellum area. Will start patient on aspirin and statin will transfer patient to stroke unit and consult neurology 09/07 appreciate neurology's consultation. We will continue aspirin and statin. Echo and MRI most likely will not be done due to the fact that patient is Covid. Patient stated that he had a fall a few years ago from a roof. I did call the patient's and updated her. Per case management patient is waiting to be approved for inpatient rehab. Patient as outpatient will require MRI brain. He is also having diplopia unclear etiology at this time. He will most likely require an ophthalmology consultation as an outpatient
[2020-09-07] MEDS: Tamsulosin HCl 0.4 MG CAP PO SCH (20:41)
[2020-09-07] MEDS: Atorvastatin Calcium 40 MG TAB PO SCH (20:41)
[2020-09-08] MEDS: Albuterol 200 PUFF (6.7GM INHALER) INH SCH ×4 (07:09→19:03)
[2020-09-08] MEDS ORDERED: Magnesium 2 GM/50 ML 2 GM in Premix Bag 1 BAG IVPB SCH (09:00)
[2020-09-08] MEDS: Aspirin Chewable 81 MG TAB PO SCH (09:22)
[2020-09-08] MEDS: Ascorbic Acid 500 mg Chewable Tablet PO SCH (09:22)
[2020-09-08] MEDS: Allopurinol 300 MG TAB PO SCH (09:22)
[2020-09-08] MEDS: Dexamethasone 4 mg/ml Vial SLOW IVP SCH (09:22)
[2020-09-08] MEDS: Enoxaparin Sodium 40 MG/0.4 ML SYRINGE SC SCH (09:25)
[2020-09-08] MEDS: guaiFENesin/DM ER PO SCH ×2 (09:26→21:39)
[2020-09-08] MEDS: Finasteride 5 MG TAB PO SCH (09:26)
[2020-09-08] MEDS: Zinc Sulfate 220 MG CAP PO SCH (09:27)
[2020-09-08] MEDS: HumaLOG 300 UNITS/3 ML VIAL SC PRN ×2 (11:41→16:52)
--- NOTE | 2020-09-08 17:13 | PDOC.HOSPP ---
- Subjective Encounter Date: 09/08/20 Encounter Time: 07:00 Subjective: Seen for follow-up regarding COVID-19 pneumonia. Denies chest pain or shortness of breath. - Objective Vital Signs & Weight: Vital Signs (12 hours) Temp Pulse Resp BP BP BP Pulse Ox 09/08/20 15:22 97.6 F 86 18 147/88 H 98 09/08/20 10:50 97.4 F L 66 12 94/52 L 98 09/08/20 07:55 97.9 F 78 22 H 111/69 96 Weight Admit Weight 160 lb 3.2 oz Weight 160 lb 3.2 oz Most Recent Monitor Data Heart Rate from ECG 70 NIBP 158/91 NIBP BP-Mean 113 Respiration from ECG 25 SpO2 99 I&O: 09/07/20 09/08/20 09/09/20 06:59 06:59 06:59 Intake Total 100 570 Output Total 950 250 Balance -850 320 Result Diagrams: 09/07/20 04:22 09/07/20 04:22 Additional Labs: Accuchecks 09/08/20 09/08/20 09/08/20 16:41 10:45 05:21 POC Glucose 233 H 166 H 106 H 09/07/20 20:14 POC Glucose 138 H I reviewed patient's labs and MAR EKG Reviewed by me: Yes (Normal sinus rhythm on telemetry) Hospitalist ROS - Review of Systems Cardiovascular: denies: chest pain, palpitations, orthopnea, paroxysmal noc. dyspnea, edema, light headedness Gastrointestinal: denies: nausea, vomiting, abdominal pain, diarrhea, constipation, melena, hematochezia - Medication Medications: Active Medications Generic Name Dose Route Start Last Admin Trade Name Freq PRN Reason Stop Dose Admin Acetaminophen 650 mg 08/22/20 11:36 09/05/20 19:45 Acetaminophen 325 Mg Tab PO 650 mg Q4H PRN Administration Headache/Fever/Mild Pain (1-3) Albuterol Sulfate 2 puff 08/22/20 15:00 09/08/20 15:24 Albuterol 200 Puff (6.7gm Inhaler) INH 2 puff [id number] SHREYSA Administration Allopurinol 300 mg 09/05/20 09:00 09/08/20 09:22 Allopurinol 300 Mg Tab PO 300 mg DAILY SHREYAS Administration Ascorbic Acid 1,000 mg 08/23/20 09:00 09/08/20 09:22 Ascorbic Acid 500 Mg Chewable Tablet PO 1,000 mg DAILY SHREYAS Administration Aspirin 81 mg 09/06/20 09:00 09/08/20 09:22 Aspirin Chewable 81 Mg Tab PO 81 mg DAILY SHREYAS Administration Atorvastatin Calcium 40 mg 09/06/20 21:00 09/07/20 20:41 Atorvastatin Calcium 40 Mg Tab PO 40 mg HS SHREYAS Administration Benzonatate 100 mg 08/22/20 11:42 08/24/20 19:15 Benzonatate 100 Mg Cap PO 100 mg TIDPRN PRN Administration Cough Clonidine 0.1 mg 09/06/20 09:00 09/06/20 13:01 Clonidine 0.1mg/24 Hour Patch TD 0.1 mg Q7DAYS SHREYAS Administration Dexamethasone 2 mg 09/03/20 09:00 09/08/20 09:22 Dexamethasone 4 Mg/Ml Vial SLOW IVP 2 mg DAILY SHREYAS Administration Enoxaparin Sodium 40 mg 09/03/20 09:00 09/08/20 09:25 Enoxaparin Sodium 40 Mg/0.4 Ml Syringe SC 40 mg DAILY SHREYAS Administration Finasteride 5 mg 08/26/20 09:00 09/08/20 09:26 Finasteride 5 Mg Tab PO 5 mg DAILY SHREYAS Administration Guaifenesin/Dextromethorphan 15 ml 08/22/20 11:36 08/24/20 21:30 Guaifenesin Dm 100-10/5 Ml Udcup PO 15 ml Q4H PRN Administration Cough Guaifenesin/Dextromethorphan 1 tab 08/31/20 21:00 09/08/20 09:26 Guaifenesin/Dm Er PO 1 tab Q12HR SHREYAS Administration Insulin Human Lispro 0 units 08/23/20 10:04 09/08/20 16:52 Humalog 300 Units/3 Ml Vial SC 3 unit .MILD SLIDING SCALE PRN Administration Mild Correctional Scale Insulin Human Lispro 0 units 08/23/20 10:04 08/24/20 19:15 Humalog 300 Units/3 Ml Vial SC 2 unit .BEDTIME SLIDING SC PRN Administration Bedtime Correctional Scale Melatonin 6 mg 09/02/20 23:59 09/05/20 19:45 Melatonin 3 Mg Tab PO 6 mg HSPRN PRN Administration Insomnia Metoprolol Tartrate 5 mg 08/30/20 12:27 09/02/20 02:34 Metoprolol Tartrate 5 Mg/5 Ml Vial IVP 5 mg Q6H PRN Administration sbp >180 or pulse >110/min Nitroglycerin 1 inch 08/29/20 18:06 09/01/20 03:07 Nitroglycerin 2% Ointment 1 Inch/1 Gm Packet TOP 1 inch Q8H PRN Administration sbp >180 Pantoprazole Sodium 40 mg 09/08/20 09:00 09/08/20 09:27 Pantoprazole 40 Mg Tab PO 40 mg DAILY SHREYAS Administration Sodium Chloride 10 ml 08/22/20 11:36 09/06/20 08:56 Flush - Normal Saline 10 Ml Syringe IVF 10 ml PRN PRN Administration Saline Flush Tamsulosin HCl 0.4 mg 08/25/20 21:00 09/07/20 20:41 Tamsulosin Hcl 0.4 Mg Cap PO 0.4 mg HS SHREYAS Administration Throat Lozenges 1 nolan 08/24/20 21:43 08/24/20 23:20 Cepastat Lozenges 1 Nolan PO 1 nolan Q2H PRN Administration Sore Throat Zinc Sulfate 220 mg 08/23/20 09:00 09/08/20 09:27 Zinc Sulfate 220 Mg Cap PO 220 mg DAILY SHREYAS Administration Hospitalist Exam Vitals: Vital Signs (12 hours) Temp Pulse Resp BP BP BP Pulse Ox 09/08/20 15:22 97.6 F 86 18 147/88 H 98 09/08/20 10:50 97.4 F L 66 12 94/52 L 98 09/08/20 07:55 97.9 F 78 22 H 111/69 96 Weight Admit Weight 160 lb 3.2 oz Weight 160 lb 3.2 oz Most Recent Monitor Data Heart Rate from ECG 70 NIBP 158/91 NIBP BP-Mean 113 Respiration from ECG 25 SpO2 99 General Appearance: awake alert Eye: anicteric sclera ENT: moist mucosa Neck: supple Heart: RRR Respiratory: CTAB Gastrointestinal: soft, non-tender Skin: no rashes Psychiatric: normal affect Hosp A/P - Plan (1) Acute respiratory failure with hypoxia Code(s): J96.01 - ACUTE RESPIRATORY FAILURE WITH HYPOXIA Status: Acute (2) Pneumonia due to COVID-19 virus Code(s): U07.1 - COVID-19; J12.82 - PNEUMONIA DUE TO CORONAVIRUS DISEASE 2019 Status: Acute (3) BPH (benign prostatic hyperplasia) Code(s): N40.0 - BENIGN PROSTATIC HYPERPLASIA WITHOUT LOWER URINRY TRACT SYMP Status: Chronic Qualifiers: Lower urinary tract symptom presence: symptoms present (4) DM type 2 (diabetes mellitus, type 2) Status: Chronic Qualifiers: Diabetes mellitus terminal operator insulin use: without jail use Diabetes mellitus complication status: with hyperglycemia Qualified Code(s): E11.65 - Type 2 diabetes mellitus with hyperglycemia (5) HTN (hypertension) Code(s): I10 - ESSENTIAL (PRIMARY) HYPERTENSION Status: Chronic Qualifiers: Hypertension type: essential hypertension Qualified Code(s): I10 - Essential (primary) hypertension (6) Hypothyroidism Code(s): E03.9 - HYPOTHYROIDISM, UNSPECIFIED Status: Chronic Qualifiers: Hypothyroidism type: acquired Qualified Code(s): E03.9 - Hypothyroidism, unspecified - Plan Code in terms of respiratory failure. Urinary retention has resolved. 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 Patient will need MRI brain and ophthalmology consultation as outpatient.
--- NOTE | 2020-09-08 20:36 | EKG ---
Test Reason : SOB Blood Pressure : / mmHG Vent. Rate : 081 BPM Atrial Rate : 081 BPM P-R Int : 140 ms QRS Dur : 072 ms QT Int : 376 ms P-R-T Axes : 008 057 013 degrees QTc Int : 436 ms Normal sinus rhythm with sinus arrhythmia Normal ECG Confirmed by MARQUES VELEZ, SANCHEZ ([id number]), editorial clerk KONSTANTIN GIANG ([id number]) on 09/08/2020 8:36:35 PM Referred By: Confirmed By:SANCHEZ MOHAN MD
[2020-09-08] MEDS: Tamsulosin HCl 0.4 MG CAP PO SCH (21:39)
[2020-09-08] MEDS: Atorvastatin Calcium 40 MG TAB PO SCH (21:39)
[2020-09-09] MEDS: Ascorbic Acid 500 mg Chewable Tablet PO SCH (09:01)
[2020-09-09] MEDS: Allopurinol 300 MG TAB PO SCH (09:01)
[2020-09-09] MEDS: guaiFENesin/DM ER PO SCH ×2 (09:01→20:12)
[2020-09-09] MEDS: Enoxaparin Sodium 40 MG/0.4 ML SYRINGE SC SCH (09:01)
[2020-09-09] MEDS: Zinc Sulfate 220 MG CAP PO SCH (09:01)
[2020-09-09] MEDS: Aspirin Chewable 81 MG TAB PO SCH (09:01)
[2020-09-09] MEDS: Dexamethasone 4 mg/ml Vial SLOW IVP SCH (09:01)
[2020-09-09] MEDS: Finasteride 5 MG TAB PO SCH (09:01)
[2020-09-09] MEDS: HumaLOG 300 UNITS/3 ML VIAL SC PRN ×2 (11:04→20:31)
--- NOTE | 2020-09-09 12:05 | PDOC.HOSPP ---
- Subjective Encounter Date: 09/09/20 Encounter Time: 07:20 Subjective: Patient seen for follow-up regarding hypoxic respiratory failure. Denies chest pain. Denies nausea or vomiting. - Objective Vital Signs & Weight: Vital Signs (12 hours) Temp Pulse Resp BP BP Pulse Ox 09/09/20 07:50 98.1 F 74 20 117/69 94 L 09/09/20 05:10 94 L 09/09/20 04:00 98.0 F 78 18 111/74 94 L Weight Admit Weight 160 lb 3.2 oz Weight 160 lb 3.2 oz Most Recent Monitor Data Heart Rate from ECG 70 NIBP 158/91 NIBP BP-Mean 113 Respiration from ECG 25 SpO2 99 I&O: 09/08/20 09/09/20 09/10/20 06:59 06:59 06:59 Intake Total 570 1360 537 Output Total 250 1350 Balance 320 10 537 Result Diagrams: 09/07/20 04:22 09/07/20 04:22 Additional Labs: Accuchecks 09/09/20 09/08/20 10:33 16:41 POC Glucose 180 H 233 H Labs and MAR reviewed by me EKG Reviewed by me: Yes (Telemetry shows normal sinus rhythm) Hospitalist ROS - Review of Systems Cardiovascular: denies: chest pain, palpitations, orthopnea, paroxysmal noc. dyspnea, edema, light headedness Gastrointestinal: denies: nausea, vomiting, abdominal pain, diarrhea, c onstipation, melena, hematochezia Genitourinary: denies: dysuria, frequency, incontinence, hematuria, retention - Medication Medications: Active Medications Generic Name Dose Route Start Last Admin Trade Name Fausto PRN Reason Stop Dose Admin Acetaminophen 650 mg 08/22/20 11:36 09/05/20 19:45 Acetaminophen 325 Mg Tab PO 650 mg Q4H PRN Administration Headache/Fever/Mild Pain (1-3) Albuterol Sulfate 2 puff 08/22/20 15:00 09/08/20 19:03 Albuterol 200 Puff (6.7gm Inhaler) INH 2 puff [id number] SHREYAS Administration Allopurinol 300 mg 09/05/20 09:00 09/09/20 09:01 Allopurinol 300 Mg Tab PO 300 mg DAILY SHREYAS Administration Ascorbic Acid 1,000 mg 08/23/20 09:00 09/09/20 09:01 Ascorbic Acid 500 Mg Chewable Tablet PO 1,000 mg DAILY SHREYAS Administration Aspirin 81 mg 09/06/20 09:00 09/09/20 09:01 Aspirin Chewable 81 Mg Tab PO 81 mg DAILY SHREYAS Administration Atorvastatin Calcium 40 mg 09/06/20 21:00 09/08/20 21:39 Atorvastatin Calcium 40 Mg Tab PO 40 mg HS SHREYAS Administration Benzonatate 100 mg 08/22/20 11:42 08/24/20 19:15 Benzonatate 100 Mg Cap PO 100 mg TIDPRN PRN Administration Cough Clonidine 0.1 mg 09/06/20 09:00 09/06/20 13:01 Clonidine 0.1mg/24 Hour Patch TD 0.1 mg Q7DAYS SHREYAS Administration Dexamethasone 2 mg 09/03/20 09:00 09/09/20 09:01 Dexamethasone 4 Mg/Ml Vial SLOW IVP 2 mg DAILY SHREYAS Administration Enoxaparin Sodium 40 mg 09/03/20 09:00 09/09/20 09:01 Enoxaparin Sodium 40 Mg/0.4 Ml Syringe SC 40 mg DAILY SHREYAS Administration Finasteride 5 mg 08/26/20 09:00 09/09/20 09:01 Finasteride 5 Mg Tab PO 5 mg DAILY SHREYAS Administration Guaifenesin/Dextromethorphan 15 ml 08/22/20 11:36 08/24/20 21:30 Guaifenesin Dm 100-10/5 Ml Udcup PO 15 ml Q4H PRN Administration Cough Guaifenesin/Dextromethorphan 1 tab 08/31/20 21:00 09/09/20 09:01 Guaifenesin/Dm Er PO 1 tab Q12HR SHREYAS Administration Insulin Human Lispro 0 units 08/23/20 10:04 09/09/20 11:04 Humalog 300 Units/3 Ml Vial SC 2 unit .MILD SLIDING SCALE PRN Administration Mild Correctional Scale Insulin Human Lispro 0 units 08/23/20 10:04 08/24/20 19:15 Humalog 300 Units/3 Ml Vial SC 2 unit .BEDTIME SLIDING SC PRN Administration Bedtime Correctional Scale Melatonin 6 mg 09/02/20 23:59 09/05/20 19:45 Melatonin 3 Mg Tab PO 6 mg HSPRN PRN Administration Insomnia Metoprolol Tartrate 5 mg 08/30/20 12:27 09/02/20 02:34 Metoprolol Tartrate 5 Mg/5 Ml Vial IVP 5 mg Q6H PRN Administration sbp >180 or pulse >110/min Nitroglycerin 1 inch 08/29/20 18:06 09/01/20 03:07 Nitroglycerin 2% Ointment 1 Inch/1 Gm Packet TOP 1 inch Q8H PRN Administration sbp >180 Pantoprazole Sodium 40 mg 09/08/20 09:00 09/09/20 09:01 Pantoprazole 40 Mg Tab PO 40 mg DAILY SHREYAS Administration Sodium Chloride 10 ml 08/22/20 11:36 09/06/20 08:56 Flush - Normal Saline 10 Ml Syringe IVF 10 ml PRN PRN Administration Saline Flush Tamsulosin HCl 0.4 mg 08/25/20 21:00 09/08/20 21:39 Tamsulosin Hcl 0.4 Mg Cap PO 0.4 mg HS SHREYAS Administration Throat Lozenges 1 nolan 08/24/20 21:43 08/24/20 23:20 Cepastat Lozenges 1 Nolan PO 1 nolan Q2H PRN Administration Sore Throat Zinc Sulfate 220 mg 08/23/20 09:00 09/09/20 09:01 Zinc Sulfate 220 Mg Cap PO 220 mg DAILY SHREYAS Administration Hospitalist Exam Vitals: Vital Signs (12 hours) Temp Pulse Resp BP BP Pulse Ox 09/09/20 07:50 98.1 F 74 20 117/69 94 L 09/09/20 05:10 94 L 09/09/20 04:00 98.0 F 78 18 111/74 94 L Weight Admit Weight 160 lb 3.2 oz Weight 160 lb 3.2 oz Most Recent Monitor Data Heart Rate from ECG 70 NIBP 158/91 NIBP BP-Mean 113 Respiration from ECG 25 SpO2 99 General Appearance: awake alert Eye: anicteric sclera ENT: normocephalic atraumatic Neck: supple Heart: RRR, no rubs Respiratory: CTAB Gastrointestinal: soft, non-tender Skin: no rashes Psychiatric: normal affect, normal behavior Hosp A/P - Plan (1) Acute respiratory failure with hypoxia Code(s): J96.01 - ACUTE RESPIRATORY FAILURE WITH HYPOXIA Status: Acute (2) Pneumonia due to COVID-19 virus Code(s): U07.1 - COVID-19; J12.82 - PNEUMONIA DUE TO CORONAVIRUS DISEASE 2019 Status: Acute (3) BPH (benign prostatic hyperplasia) Code(s): N40.0 - BENIGN PROSTATIC HYPERPLASIA WITHOUT LOWER URINRY TRACT SYMP Status: Chronic Qualifiers: Lower urinary tract symptom presence: symptoms present (4) DM type 2 (diabetes mellitus, type 2) Status: Chronic Qualifiers: Diabetes mellitus mcc insulin use: without mcc use Diabetes mellitus complication status: with hyperglycemia Qualified Code(s): E11.65 - Type 2 diabetes mellitus with hyperglycemia (5) HTN (hypertension) Code(s): I10 - ESSENTIAL (PRIMARY) HYPERTENSION Status: Chronic Qualifiers: Hypertension type: essential hypertension Qualified Code(s): I10 - Essent ial (primary) hypertension (6) Hypothyroidism Code(s): E03.9 - HYPOTHYROIDISM, UNSPECIFIED Status: Chronic Qualifiers: Hypothyroidism type: acquired Qualified Code(s): E03.9 - Hypothyroidism, unspecified - Plan Improved in terms of respiratory failure. Urinary retention has resolved. 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 MRI brain and ophthalmology consultation as outpatient.
[2020-09-09] MEDS: Tamsulosin HCl 0.4 MG CAP PO SCH (20:12)
[2020-09-09] MEDS: Atorvastatin Calcium 40 MG TAB PO SCH (20:12)
[2020-09-10] MEDS: Enoxaparin Sodium 40 MG/0.4 ML SYRINGE SC SCH (09:45)
[2020-09-10] MEDS: Allopurinol 300 MG TAB PO SCH (09:45)
[2020-09-10] MEDS: Ascorbic Acid 500 mg Chewable Tablet PO SCH (09:45)
[2020-09-10] MEDS: Dexamethasone 4 mg/ml Vial SLOW IVP SCH (09:45)
[2020-09-10] MEDS: guaiFENesin/DM ER PO SCH (09:46)
[2020-09-10] MEDS: Zinc Sulfate 220 MG CAP PO SCH (09:46)
[2020-09-10] MEDS: Aspirin Chewable 81 MG TAB PO SCH (09:46)
[2020-09-10] MEDS: Finasteride 5 MG TAB PO SCH (09:46)
[2020-09-10] MEDS: Albuterol 200 PUFF (6.7GM INHALER) INH SCH ×4 (11:07→15:54)
[2020-09-10] MEDS: HumaLOG 300 UNITS/3 ML VIAL SC PRN (11:17)
[2020-09-10 11:43] VITALS: BP 119/73; TEMP 97.5
--- NOTE | 2020-09-10 12:15 | PDOC.DS.DS ---
Provider Date of Admission: 08/22/20 11:29 Date of Discharge: 09/10/20 Admitting Provider: Ander Byers MD Consultations: Neurology (Dr. Browning), Pulmonary (Dr. Doyle), Urology (Dr. Thomas) Primary Care Physician: Unknown Course Hospital Course: Discharge diagnosis: 1. Acute hypoxic respiratory failure 2. COVID-19 pneumonia 3. Acute ischemic cerebrovascular accident 4. Acute metabolic encephalopathy 5. Hypokalemia 6. BPH Hospital course: Patient is a pleasant 69-year-old gentleman who was admitted to the hospital on August 22, 2020 for acute hypoxic respiratory failure secondary to COVID-19 pneumonia. He was treated with dexamethasone and remdesivir. He also received vitamin C, D and zinc. On August 25 he was found to have removed his oxygen and was lying sideways in the bed. He was confused. He was started on high flow oxygen. Was subsequently intubated and mechanically ventilated. He was also seen by urology service for Ferreira catheter trauma. He was seen by pulmonology service as well. He was extubated on August 29. He was transfe rred to the medical floor. He pulled his Ferreira catheter out again on September 03, for the second time. Urology service did not recommend replacing the Ferreira catheter. He had episodes of intermittent confusion. He complained of double vision on September 05. CT scan of the brain indicated hypodense lesion in the left cerebellar area. He was started on aspirin and statin and transferred to stroke unit. Neurology service was consulted. Carotid Dopplers did not show any evidence of significant stenosis. He will need 2D echocardiogram and MRI done in the outpatient setting. He will also require ophthalmology consultation as outpatient for diplopia. He was seen by therapy services. He was physically deconditioned. He was recommended inpatient rehab. He is being discharged to inpatient rehab. Many thanks for allowing me to participate in your patient's care. Please feel free to contact me with any questions or concerns. Discharge destination: Inpatient rehab Total amount of time spent coordinating this discharge: 32 minutes Resuscitation Status: 08/22/20 11:36 Resuscitation Status Routine Co-Sign Provider: Resuscitation Status: FULL: Full Resuscitation Lab Results: 09/07/20 04:22 09/07/20 04:22 Vitals: Vital Signs (12 hours) Temp Pulse Resp BP BP BP BP 09/10/20 11:43 97.5 F L 76 20 119/73 09/10/20 09:00 99/58 L 100/59 L 09/10/20 07:30 97.4 F L 78 20 95/61 09/10/20 03:47 98.6 F 86 18 95/58 L 09/10/20 03:45 Pulse Ox 09/10/20 11:43 98 09/10/20 09:00 09/10/20 07:30 95 09/10/20 03:47 94 L 09/10/20 03:45 91 L Weight Admit Weight 160 lb 3.2 oz Weight 160 lb 3.2 oz Most Recent Monitor Data Heart Rate from ECG 70 NIBP 158/91 NIBP BP-Mean 113 Respiration from ECG 25 SpO2 99 Physical Exam: The patient was seen and examined on the day of discharge. He is not answering questions. S1 and S2 are heard, regular. Lungs are clear to auscultation bilaterally. Plan Home Medications: Medication Instructions Recorded Confirmed Type Allopurinol 300 mg PO DAILY 08/23/20 08/23/20 History Aspirin Chewable [Aspirin Chewable 81 mg PO DAILY tab 09/10/20 Rx Tablet] Atorvastatin Calcium [Lipitor] 40 mg PO HS tab 09/10/20 Rx Finasteride [Proscar] 5 mg PO DAILY tab 09/10/20 Rx Tamsulosin HCl [Flomax] 0.4 mg PO HS cap 09/10/20 Rx Allergies: Sulfa (Sulfonamide Antibiotics) Allergy (Verified 08/22/20 12:21) Discharge Instructions:: You will need 2D echocardiogram and MRI done in the outpatient setting. You will also require ophthalmology consultation as outpatient for double vision. Referrals: Unknown,Unknown [Primary Care Provider] - 3 Days Disposition: REHABILITATION INPATIENT Quality CORE MEASURES:: Stroke/TIA Did you prescribe antithrombotic therapy?: Yes Did you prescribe anticoagulant for A Fib/Flutter?: No Specify reason for no DC anticoagulant: Treatment not indicated Did you prescribe a statin medication?: Yes
== END 2020-09-10 16:51 | DRG 207 ==
LOC: ERS 08:42 → ERHOLD 11:29 → T4-A 17:07 → IMCU/EMU 08-25 06:33 → 2SE 08-31 17:21 → T4-B 09-03 19:09 → 2SE 09-06 19:17
PROVIDERS: ADMIT Internal Medicine; ATTEND Internal Medicine
PROC: 8E0ZXY6 Isolation (ICD-10-PCS; 2020-08-22)
PROC: XW033E5 Introduction of Remdesivir Anti-infective into Peripheral Vein, Percutaneous Approach, New Technology Group 5 (ICD-10-PCS; 2020-08-22)
PROC: 5A1955Z Respiratory Ventilation, Greater than 96 Consecutive Hours (ICD-10-PCS; principal; 2020-08-25)
PROC: 0BH17EZ Insertion of Endotracheal Airway into Trachea, Via Natural or Artificial Opening (ICD-10-PCS; 2020-08-25)
PROC: XW13325 Transfusion of Convalescent Plasma (Nonautologous) into Peripheral Vein, Percutaneous Approach, New Technology Group 5 (ICD-10-PCS; 2020-08-26)
DX: U07.1 COVID-19 (principal); J12.82 Pneumonia due to coronavirus disease 2019; J96.01 Acute respiratory failure with hypoxia; G93.41 Metabolic encephalopathy; I63.9 Cerebral infarction, unspecified; E87.1 Hypo-osmolality and hyponatremia; G72.81 Critical illness myopathy; N13.8 Other obstructive and reflux uropathy; E87.6 Hypokalemia; R13.10 Dysphagia, unspecified; E03.9 Hypothyroidism, unspecified; E11.65 Type 2 diabetes mellitus with hyperglycemia; I10 Essential (primary) hypertension; N35.919 Unspecified urethral stricture, male, unspecified site; R33.8 Other retention of urine; N40.1 Benign prostatic hyperplasia with lower urinary tract symptoms; H53.2 Diplopia; Z78.1 Physical restraint status; Z88.2 Allergy status to sulfonamides; Z79.899 Other long term (current) drug therapy; Z85.820 Personal history of malignant melanoma of skin; M1A.0690 Idiopathic chronic gout, unspecified knee, without tophus (tophi)
CPT/HCPCS: 36415; 36416; 36430; 36600; 70450; 71045; 80048; 80053; 80076; 81003; 81015; 82436; 82728; 82805; 83605; 83615; 83735; 83930; 83935; 84100; 84133; 84295; 84300; 84443; 84484; 85025; 85379; 85652; 86140; 86850; 86900; 86901; 93005; 93880; 94002; 94003; 94150; 96374; C9113; J0360; J0456; J0696; J1100; J1200; J1630; J1650; J1815; J2060; J2704; J3010; J3475; J3490; J7050; J8540; P9017; U0002

== ENCOUNTER 2023-06-08 10:15 | Emergency (ER) | payer MEDICARE, BC ==
[2023-06-08 11:27] LABS: #Monocytes 0.4 thou/uL (0.11-0.59); #Neutrophils 7.7 thou/uL (1.40-6.50); %Basophils 0.3 % (0.0-1.0); %Eosinophils 0.4 % (0.0-10.0); %Lymphocytes 9.6 % (21.0-51.0); %Neutrophils 85.4 % (42.0-75.0); Hematocrit 39.7 % (42.0-52.0); Hemoglobin 13.4 g/dL (14.0-18.0); Mean Corpuscular HGB CONC 33.8 g/dL (32.0-36.0); Mean Corpuscular Hemoglobin 32.8 pg (27.0-31.0); Mean Corpuscular Volume 97.3 fl (78.0-98.0); Mean Platelet Volume 11.7 fL (7.4-10.4); Platelet Count 163 10x3/uL (130-400); RBC Distribution Width 13.5 % (11.5-14.5); Red Blood Cell (RBC) Count 4.08 mill/uL (4.70-6.10)
[2023-06-08 11:51] LABS: ALT (SGPT) 25 U/L (8-55); AST (SGOT) 16 U/L (5-34); Albumin 4.7 g/dL (3.4-4.8); Alkaline Phosphatase 73 U/L (40-110); Anion Gap 12 mmol/L (10-20); BUN (Urea Nitrogen) 20 mg/dL (8.4-25.7); Bilirubin, Total 0.4 mg/dL (0.2-1.2); Calc. Creatinine Clearance 0 mL/min (70-130); Calcium 9.5 mg/dL (7.8-10.44); Carbon Dioxide 30 mmol/L (23-31); Chloride 103 mmol/L (98-107); Estimated GFR 66; Globulin 2.5 g/dL (2.4-3.5); Glucose 193 mg/dL (83-110); Potassium 4.3 mmol/L (3.5-5.1); Protein, Total 7.2 g/dL (5.8-8.1); Sodium 141 mmol/L (136-145)
[2023-06-08 11:57] LABS: Troponin I Less than 0.010 ng/mL (< 0.028)
== END 2023-06-08 13:08 | disposition home or self-care (01) ==
LOC: ERS 10:15
DX: I10 Essential (primary) hypertension (principal); E03.9 Hypothyroidism, unspecified; E11.9 Type 2 diabetes mellitus without complications; Z79.84 Long term (current) use of oral hypoglycemic drugs; Z79.899 Other long term (current) drug therapy; Z79.82 Long term (current) use of aspirin
CPT/HCPCS: 71045; 80053; 83605; 83880; 84484; 85025; 93005